=== PATIENT | female | born 1950 | race Caucasian/White ===

== ENCOUNTER → 2023-04-18 13:50 | Outpatient (REF) | payer MEDICARE, BC, SELFPAY | LOC: RAD 13:50 | PROVIDERS: ATTENDING PHYSICIAN Internal Medicine Rheumatology; FAMILY PHYSICIAN Internal Medicine | DX: M05.9 Rheumatoid arthritis with rheumatoid factor, unspecified (principal); Z51.81 Encounter for therapeutic drug level monitoring; M47.816 Spondylosis without myelopathy or radiculopathy, lumbar region; R10.2 Pelvic and perineal pain | CPT/HCPCS: 72110; 72170 ==

== ENCOUNTER → 2023-05-09 11:12 | Outpatient (REF) | payer MEDICARE, BC, SELFPAY ==
[2023-05-09 12:21] LABS: % Basophils 0.8 % (0-2); % Eosinophils 3.2 % (0-6); % Immature Granulocytes 0.6 % (0-0.5); % Monocytes 6.5 % (1.7-9.3); % Neutrophils 55.9 % (42.2-75.2); Absolute Basophils 0.1 10^3/uL (0-0.2); Absolute Eosinophils 0.3 10^3/uL (0-0.7); Absolute Immature Granulocytes 0.1 10^3/uL (0-0.05); Absolute Lymphocytes 2.6 10^3/uL (1.2-3.4); Absolute Monocytes 0.5 10^3/uL (0.1-0.6); Absolute Neutrophils 4.4 10^3/uL (1.4-6.5); Mean Corp Hgb Conc. 32.4 g/dL (33.0-37.0); Mean Corpuscular Hgb 32.1 pg (27.0-31.0); Mean Corpuscular Volume 99.1 fL (81.0-99.0); Nucleated Red Blood Cells % 0 %; Platelet Count 163 10^3/uL (130-400); Red Blood Cell Count 3.43 10^6/uL (4.20-5.40); Red Cell Dist. Width 14.7 % (11.5-14.5); White Blood Cell Count 7.9 10^3/uL (4.8-10.8)
[2023-05-09 12:48] LABS: C-Reactive Protein < 5.00 mg/L (0.0-10.00)
[2023-05-09 12:58] LABS: ALT (SGPT) 22 U/L (0-35); AST (SGOT) 22 U/L (14-36); Albumin 3.7 g/dl (3.5-5.0); Alkaline Phosphatase 85 U/L (38-126); Blood Urea Nitrogen 19 mg/dl (7-17); Carbon Dioxide 23 mmol/L (22-30); Chloride 109 mmol/L (98-107); Glucose 96 mg/dl (70-99); Iron 96 ug/dl (37-170); Potassium 4.5 mmol/L (3.5-5.1); Sodium 137 mmol/L (135-145); Total Bilirubin 0.5 mg/dl (0.2-1.3); Total Protein 6.6 g/dl (6.3-8.2); eGFR > 60.00
[2023-05-09 13:06] LABS: Percent Saturation 34 % (20-50); Total Iron Binding Capacity 275 ug/dl (265-497)
[2023-05-09 13:24] LABS: Ferritin 66.3 ng/ml (11.1-264.0)
[2023-05-09 13:55] LABS: Folate 9.2 ng/ml (2.76-20); Vitamin B12 251 pg/ml (239-931)
[2023-05-10 11:15] LABS: Glycohemoglobin (HgbA1c) 7.2 % (4.0-5.6)
[2023-05-11 02:42] LABS: Mitochondrial M2 Ab, IgG 8.4 Units (0.0-24.9)
[2023-05-11 13:01] LABS: Quantiferon Mitogen minus NIL >10.00 IU/mL; Quantiferon NIL 0.03 IU/mL; Quantiferon Plus TB2 minus NIL 0.12 IU/mL (0.00-0.34); Quantiferon TB Gold Plus Negative (Negative)
== END ==
LOC: REG 11:12
PROVIDERS: ATTENDING PHYSICIAN Internal Medicine Hematology & Oncology; FAMILY PHYSICIAN Internal Medicine; OTHER PHYSICIAN Internal Medicine Rheumatology; REFERRING PHYSICIAN Physician Assistant
DX: D64.9 Anemia, unspecified (principal); D47.2 Monoclonal gammopathy; D70.9 Neutropenia, unspecified; D50.9 Iron deficiency anemia, unspecified; R53.82 Chronic fatigue, unspecified; Z68.33 Body mass index [BMI] 33.0-33.9, adult; E11.69 Type 2 diabetes mellitus with other specified complication; R74.8 Abnormal levels of other serum enzymes; M05.739 Rheumatoid arthritis with rheumatoid factor of unspecified wrist without organ or systems involvement; M05.9 Rheumatoid arthritis with rheumatoid factor, unspecified; Z51.81 Encounter for therapeutic drug level monitoring; Z79.899 Other long term (current) drug therapy
CPT/HCPCS: 36415; 80053; 82607; 82728; 82746; 83036; 83540; 83550; 85025; 86140; 86381; 86480

== ENCOUNTER → 2023-05-24 12:54 | Outpatient (REF) | payer MEDICARE, BC, SELFPAY | LOC: DHCBC MAIN 12:54 | PROVIDERS: ATTENDING PHYSICIAN Internal Medicine Cardiovascular Disease; FAMILY PHYSICIAN Internal Medicine | DX: E78.00 Pure hypercholesterolemia, unspecified (principal); I21.4 Non-ST elevation (NSTEMI) myocardial infarction; I50.20 Unspecified systolic (congestive) heart failure; I63.9 Cerebral infarction, unspecified; I50.1 Left ventricular failure, unspecified; I42.9 Cardiomyopathy, unspecified; Z95.5 Presence of coronary angioplasty implant and graft | CPT/HCPCS: 93306 ==

== ENCOUNTER → 2023-06-03 16:05 | Outpatient (REF) | payer MEDICARE, BC, SELFPAY ==
[2023-06-03 12:51] LABS: % Basophils 0.7 % (0-2); % Immature Granulocytes 0.8 % (0-0.5); % Lymphocytes 18.9 % (20.5-51.1); % Monocytes 5.3 % (1.7-9.3); % Neutrophils 72.3 % (42.2-75.2); Absolute Basophils 0.1 10^3/uL (0-0.2); Absolute Eosinophils 0.2 10^3/uL (0-0.7); Absolute Immature Granulocytes 0.1 10^3/uL (0-0.05); Absolute Lymphocytes 1.6 10^3/uL (1.2-3.4); Absolute Monocytes 0.5 10^3/uL (0.1-0.6); Absolute Neutrophils 6.2 10^3/uL (1.4-6.5); Hematocrit 35.7 % (37.0-47.0); Hemoglobin 11.3 g/dL (12.0-16.0); Mean Corp Hgb Conc. 31.7 g/dL (33.0-37.0); Mean Corpuscular Hgb 31.9 pg (27.0-31.0); Mean Corpuscular Volume 100.8 fL (81.0-99.0); Nucleated Red Blood Cells % 0 %; Platelet Count 165 10^3/uL (130-400); Red Blood Cell Count 3.54 10^6/uL (4.20-5.40); Red Cell Dist. Width 13.6 % (11.5-14.5); White Blood Cell Count 8.6 10^3/uL (4.8-10.8)
== END ==
LOC: OIDL 16:05
PROVIDERS: ATTENDING PHYSICIAN Internal Medicine Hematology & Oncology
DX: D64.9 Anemia, unspecified (principal)
CPT/HCPCS: 84100; 85025

== ENCOUNTER → 2023-08-08 07:31 | Outpatient (REF) | payer MEDICARE, BC, SELFPAY ==
[2023-08-08 08:59] LABS: % Basophils 0.4 % (0-2); % Immature Granulocytes 0.7 % (0-0.5); % Lymphocytes 31.9 % (20.5-51.1); % Monocytes 6.8 % (1.7-9.3); % Neutrophils 58.2 % (42.2-75.2); Absolute Eosinophils 0.2 10^3/uL (0-0.7); Absolute Immature Granulocytes 0.1 10^3/uL (0-0.05); Absolute Lymphocytes 2.4 10^3/uL (1.2-3.4); Absolute Monocytes 0.5 10^3/uL (0.1-0.6); Absolute Neutrophils 4.3 10^3/uL (1.4-6.5); Hematocrit 35.7 % (37.0-47.0); Hemoglobin 11.5 g/dL (12.0-16.0); Mean Corp Hgb Conc. 32.2 g/dL (33.0-37.0); Mean Corpuscular Volume 102.3 fL (81.0-99.0); Mean Platelet Volume 11.2 fL (7.4-10.4); Nucleated Red Blood Cells % 0 %; Platelet Count 157 10^3/uL (130-400); Red Blood Cell Count 3.49 10^6/uL (4.20-5.40); Red Cell Dist. Width 12.9 % (11.5-14.5); White Blood Cell Count 7.5 10^3/uL (4.8-10.8)
[2023-08-08 10:34] LABS: AST (SGOT) 31 U/L (14-36); Albumin 3.5 g/dl (3.5-5.0); Alkaline Phosphatase 100 U/L (38-126); Blood Urea Nitrogen 23 mg/dl (7-17); Calcium 9.2 mg/dl (8.4-10.2); Carbon Dioxide 20 mmol/L (22-30); Chloride 109 mmol/L (98-107); Glucose 80 mg/dl (70-99); HDL Cholesterol 68 mg/dl; Iron 97 ug/dl (37-170); Potassium 4.5 mmol/L (3.5-5.1); Sodium 139 mmol/L (135-145); Total Bilirubin 0.5 mg/dl (0.2-1.3); Total Protein 6.2 g/dl (6.3-8.2); Triglyceride 141 mg/dl (10-149); Very Low Density Lipoprotein 28 mg/dl (0-30); eGFR > 60.00
[2023-08-08 10:46] LABS: Percent Saturation 45 % (20-50); Total Iron Binding Capacity 212 ug/dl (265-497)
[2023-08-08 10:59] LABS: TSH Reflex To Free T4 2.51 uIU/ml (0.47-4.68)
[2023-08-08 11:07] LABS: ALT (SGPT) 63 U/L (0-35); LDL Cholesterol, Calculated 43 mg/dl; Total Cholesterol 139 mg/dl (50-199)
[2023-08-08 11:18] LABS: Vitamin B12 851 pg/ml (239-931)
== END ==
LOC: REG 07:31
PROVIDERS: ATTENDING PHYSICIAN Internal Medicine Hematology & Oncology; FAMILY PHYSICIAN Internal Medicine
DX: E11.69 Type 2 diabetes mellitus with other specified complication (principal); D64.9 Anemia, unspecified; D47.2 Monoclonal gammopathy; D70.9 Neutropenia, unspecified; D50.9 Iron deficiency anemia, unspecified; R53.82 Chronic fatigue, unspecified; D51.9 Vitamin B12 deficiency anemia, unspecified
CPT/HCPCS: 36415; 80053; 80061; 82607; 82728; 83540; 83550; 84443; 85025

== ENCOUNTER → 2023-11-19 08:17 | Outpatient (REF) | payer MEDICARE, BC, SELFPAY ==
[2023-11-19 09:13] LABS: % Basophils 0.5 % (0-2); % Eosinophils 2.4 % (0-6); % Immature Granulocytes 0.9 % (0-0.5); % Lymphocytes 34.3 % (20.5-51.1); % Monocytes 9.6 % (1.7-9.3); % Neutrophils 52.3 % (42.2-75.2); Absolute Eosinophils 0.1 10^3/uL (0-0.7); Absolute Immature Granulocytes 0.1 10^3/uL (0-0.05); Absolute Lymphocytes 1.9 10^3/uL (1.2-3.4); Absolute Monocytes 0.5 10^3/uL (0.1-0.6); Absolute Neutrophils 2.9 10^3/uL (1.4-6.5); Hemoglobin 10.5 g/dL (12.0-16.0); Mean Corp Hgb Conc. 32.8 g/dL (33.0-37.0); Mean Corpuscular Hgb 33.2 pg (27.0-31.0); Mean Corpuscular Volume 101.3 fL (81.0-99.0); Mean Platelet Volume 11.3 fL (7.4-10.4); Nucleated Red Blood Cells % 0 %; Platelet Count 147 10^3/uL (130-400); Red Blood Cell Count 3.16 10^6/uL (4.20-5.40); Red Cell Dist. Width 12.1 % (11.5-14.5); White Blood Cell Count 5.5 10^3/uL (4.8-10.8)
[2023-11-19 09:57] LABS: ALT (SGPT) 83 U/L (0-35); AST (SGOT) 55 U/L (14-36); Albumin 3.5 g/dl (3.5-5.0); Alkaline Phosphatase 153 U/L (38-126); Blood Urea Nitrogen 28 mg/dl (7-17); Calcium 9.3 mg/dl (8.4-10.2); Carbon Dioxide 18 mmol/L (22-30); Chloride 108 mmol/L (98-107); Glucose 95 mg/dl (70-99); Iron 114 ug/dl (37-170); Sodium 142 mmol/L (135-145); Total Bilirubin 0.4 mg/dl (0.2-1.3); eGFR 59.86
[2023-11-19 10:10] LABS: Percent Saturation 51 % (20-50); Total Iron Binding Capacity 221 ug/dl (265-497)
[2023-11-19 12:13] LABS: Vitamin B12 918 pg/ml (239-931)
[2023-11-19 12:58] LABS: Glycohemoglobin (HgbA1c) 6.4 % (4.0-5.6)
== END ==
LOC: REG 08:17
PROVIDERS: ATTENDING PHYSICIAN Internal Medicine Hematology & Oncology; FAMILY PHYSICIAN Internal Medicine; REFERRING PHYSICIAN Internal Medicine Rheumatology
DX: E11.69 Type 2 diabetes mellitus with other specified complication (principal); M05.739 Rheumatoid arthritis with rheumatoid factor of unspecified wrist without organ or systems involvement; I10 Essential (primary) hypertension; D64.9 Anemia, unspecified; E78.00 Pure hypercholesterolemia, unspecified; Z86.73 Personal history of transient ischemic attack (TIA), and cerebral infarction without residual deficits; D47.2 Monoclonal gammopathy; D70.9 Neutropenia, unspecified; D50.9 Iron deficiency anemia, unspecified; R53.82 Chronic fatigue, unspecified; D51.9 Vitamin B12 deficiency anemia, unspecified; M05.9 Rheumatoid arthritis with rheumatoid factor, unspecified; Z51.81 Encounter for therapeutic drug level monitoring
CPT/HCPCS: 36415; 80053; 82607; 82728; 82746; 83036; 83540; 83550; 85025; 86140

== ENCOUNTER → 2024-03-26 10:16 | Outpatient (REF) | payer MEDICARE, BC, SELFPAY ==
[2024-03-26 11:33] LABS: % Basophils 0.4 % (0-2); % Eosinophils 1.5 % (0-6); % Lymphocytes 35.7 % (20.5-51.1); % Monocytes 7.4 % (1.7-9.3); Absolute Eosinophils 0.1 10^3/uL (0-0.7); Absolute Immature Granulocytes 0.1 10^3/uL (0-0.05); Absolute Lymphocytes 1.9 10^3/uL (1.2-3.4); Absolute Monocytes 0.4 10^3/uL (0.1-0.6); Absolute Neutrophils 2.8 10^3/uL (1.4-6.5); Hematocrit 35.8 % (37.0-47.0); Hemoglobin 11.1 g/dL (12.0-16.0); Mean Corpuscular Hgb 31.1 pg (27.0-31.0); Mean Corpuscular Volume 100.3 fL (81.0-99.0); Mean Platelet Volume 11.5 fL (7.4-10.4); Nucleated Red Blood Cells % 0 %; Platelet Count 150 10^3/uL (130-400); Red Blood Cell Count 3.57 10^6/uL (4.20-5.40); Red Cell Dist. Width 12.6 % (11.5-14.5); White Blood Cell Count 5.2 10^3/uL (4.8-10.8)
[2024-03-26 11:51] LABS: Glycohemoglobin (HgbA1c) 6.7 % (4.0-5.6)
[2024-03-26 12:13] LABS: ALT (SGPT) 59 U/L (0-35); AST (SGOT) 27 U/L (14-36); Alkaline Phosphatase 112 U/L (38-126); Blood Urea Nitrogen 27 mg/dl (7-17); Calcium 8.6 mg/dl (8.4-10.2); Carbon Dioxide 21 mmol/L (22-30); Chloride 103 mmol/L (98-107); Glucose 129 mg/dl (70-99); HDL Cholesterol 76 mg/dl; Iron 134 ug/dl (37-170); LDL Cholesterol, Calculated 87 mg/dl; Potassium 4.4 mmol/L (3.5-5.1); Sodium 135 mmol/L (135-145); Total Bilirubin 0.5 mg/dl (0.2-1.3); Total Cholesterol 208 mg/dl (50-199); Total Protein 6.9 g/dl (6.3-8.2); Triglyceride 228 mg/dl (10-149); Very Low Density Lipoprotein 45 mg/dl (0-30); eGFR > 60.00
[2024-03-26 12:23] LABS: Percent Saturation 60 % (20-50); Total Iron Binding Capacity 223 ug/dl (265-497)
[2024-03-26 12:47] LABS: TSH 1.28 uIU/ml (0.47-4.68)
[2024-03-26 12:59] LABS: GGTP 138 U/L (12-43)
[2024-03-26 14:26] LABS: Folate 7.2 ng/ml (2.76-20); Vitamin B12 833 pg/ml (239-931)
== END ==
LOC: REG 10:16
PROVIDERS: ATTENDING PHYSICIAN Internal Medicine; FAMILY PHYSICIAN Internal Medicine Rheumatology
DX: R79.89 Other specified abnormal findings of blood chemistry (principal); D64.9 Anemia, unspecified; R74.8 Abnormal levels of other serum enzymes; M05.739 Rheumatoid arthritis with rheumatoid factor of unspecified wrist without organ or systems involvement; I10 Essential (primary) hypertension; E78.00 Pure hypercholesterolemia, unspecified; Z23 Encounter for immunization; Z68.35 Body mass index [BMI] 35.0-35.9, adult; Z86.73 Personal history of transient ischemic attack (TIA), and cerebral infarction without residual deficits; M05.9 Rheumatoid arthritis with rheumatoid factor, unspecified; R53.83 Other fatigue; Z51.81 Encounter for therapeutic drug level monitoring; D52.9 Folate deficiency anemia, unspecified
CPT/HCPCS: 36415; 80053; 80061; 82607; 82728; 82746; 82977; 83036; 83540; 83550; 84443; 85025; 86140

== ENCOUNTER → 2024-04-14 10:32 | Outpatient (REF) | payer MEDICARE, BC, SELFPAY ==
[2024-04-14 11:41] LABS: % Basophils 0.6 % (0-2); % Eosinophils 2.4 % (0-6); % Immature Granulocytes 0.8 % (0-0.5); % Lymphocytes 26.9 % (20.5-51.1); % Monocytes 8.1 % (1.7-9.3); % Neutrophils 61.2 % (42.2-75.2); Absolute Eosinophils 0.2 10^3/uL (0-0.7); Absolute Immature Granulocytes 0.1 10^3/uL (0-0.05); Absolute Lymphocytes 1.9 10^3/uL (1.2-3.4); Absolute Monocytes 0.6 10^3/uL (0.1-0.6); Absolute Neutrophils 4.4 10^3/uL (1.4-6.5); Hematocrit 32.6 % (37.0-47.0); Hemoglobin 10.8 g/dL (12.0-16.0); Mean Corp Hgb Conc. 33.1 g/dL (33.0-37.0); Mean Corpuscular Hgb 31.8 pg (27.0-31.0); Mean Corpuscular Volume 95.9 fL (81.0-99.0); Mean Platelet Volume 11.4 fL (7.4-10.4); Nucleated Red Blood Cells % 0 %; Platelet Count 176 10^3/uL (130-400); Red Cell Dist. Width 12.4 % (11.5-14.5); White Blood Cell Count 7.2 10^3/uL (4.8-10.8)
[2024-04-14 11:42] LABS: Blood Urea Nitrogen 26 mg/dl (7-17); Carbon Dioxide 18 mmol/L (22-30); Chloride 104 mmol/L (98-107); Glucose 126 mg/dl (70-99); Iron 83 ug/dl (37-170); Potassium 4.5 mmol/L (3.5-5.1); Sodium 135 mmol/L (135-145); eGFR > 60.00
[2024-04-14 11:50] LABS: Erythrocyte Sed Rate 68 mm/hour (0-20)
[2024-04-14 11:51] LABS: Percent Saturation 36 % (20-50); Total Iron Binding Capacity 229 ug/dl (265-497)
== END ==
LOC: REG 10:32
PROVIDERS: ATTENDING PHYSICIAN Internal Medicine Hematology & Oncology; FAMILY PHYSICIAN Internal Medicine
DX: D64.9 Anemia, unspecified (principal); D47.2 Monoclonal gammopathy; D70.9 Neutropenia, unspecified; D50.9 Iron deficiency anemia, unspecified; R53.82 Chronic fatigue, unspecified; D51.9 Vitamin B12 deficiency anemia, unspecified
CPT/HCPCS: 36415; 80048; 82728; 83540; 83550; 85025; 85652

== ENCOUNTER → 2024-06-10 10:24 | Outpatient (REF) | payer MEDICARE, BC, SELFPAY ==
[2024-06-12 13:45] LABS: Quantiferon Mitogen minus NIL 9.95 IU/mL; Quantiferon NIL 0.05 IU/mL; Quantiferon Plus TB1 minus NIL 0.14 IU/mL (<=0.34); Quantiferon Plus TB2 minus NIL 0.12 IU/mL (<=0.34); Quantiferon TB Gold Plus Negative (Negative)
== END ==
LOC: REG 10:24
PROVIDERS: ATTENDING PHYSICIAN Internal Medicine Rheumatology; FAMILY PHYSICIAN Internal Medicine
DX: M05.9 Rheumatoid arthritis with rheumatoid factor, unspecified (principal); Z11.1 Encounter for screening for respiratory tuberculosis; Z51.81 Encounter for therapeutic drug level monitoring
CPT/HCPCS: 36415; 86480

== ENCOUNTER → 2024-08-05 08:41 | Outpatient (REF) | payer MEDICARE, BC, SELFPAY ==
[2024-08-05 10:12] LABS: % Basophils 0.4 % (0-2); % Eosinophils 2.4 % (0-6); % Lymphocytes 30.7 % (20.5-51.1); % Monocytes 6.6 % (1.7-9.3); % Neutrophils 58.9 % (42.2-75.2); Absolute Eosinophils 0.2 10^3/uL (0-0.7); Absolute Immature Granulocytes 0.1 10^3/uL (0-0.05); Absolute Lymphocytes 2.1 10^3/uL (1.2-3.4); Absolute Monocytes 0.5 10^3/uL (0.1-0.6); Absolute Neutrophils 4.1 10^3/uL (1.4-6.5); Hematocrit 34.8 % (37.0-47.0); Hemoglobin 11.2 g/dL (12.0-16.0); Mean Corp Hgb Conc. 32.2 g/dL (33.0-37.0); Mean Corpuscular Hgb 31.7 pg (27.0-31.0); Mean Corpuscular Volume 98.6 fL (81.0-99.0); Mean Platelet Volume 11.5 fL (7.4-10.4); Nucleated Red Blood Cells % 0 %; Platelet Count 167 10^3/uL (130-400); Red Blood Cell Count 3.53 10^6/uL (4.20-5.40)
[2024-08-05 10:51] LABS: ALT (SGPT) 22 U/L (0-35); AST (SGOT) 20 U/L (14-36); Albumin 3.7 g/dl (3.5-5.0); Alkaline Phosphatase 69 U/L (38-126); Blood Urea Nitrogen 24 mg/dl (7-17); Calcium 9.2 mg/dl (8.4-10.2); Carbon Dioxide 19 mmol/L (22-30); Chloride 114 mmol/L (98-107); GGTP 67 U/L (12-43); Glucose 101 mg/dl (70-99); Iron 83 ug/dl (37-170); Potassium 4.5 mmol/L (3.5-5.1); Sodium 141 mmol/L (135-145); Total Bilirubin 0.3 mg/dl (0.2-1.3); Total Protein 6.2 g/dl (6.3-8.2); eGFR 59.86
[2024-08-05 10:54] LABS: C-Reactive Protein < 5.00 mg/L (0.0-10.00)
[2024-08-05 11:00] LABS: Percent Saturation 33 % (20-50); Total Iron Binding Capacity 246 ug/dl (265-497)
[2024-08-05 11:21] LABS: Erythrocyte Sed Rate 68 mm/hour (0-20)
[2024-08-05 11:34] LABS: Glycohemoglobin (HgbA1c) 6.7 % (4.0-5.6)
[2024-08-05 12:02] LABS: Folate 9.6 ng/ml (2.76-20); Vitamin B12 952 pg/ml (239-931)
[2024-08-08 06:17] LABS: Mitochondrial M2 Ab, IgG 7.3 Units (0.0-24.9)
== END ==
LOC: REG 08:41
PROVIDERS: ATTENDING PHYSICIAN Internal Medicine; OTHER PHYSICIAN Internal Medicine Rheumatology; OTHER PHYSICIAN Nurse Practitioner; OTHER PHYSICIAN Nurse Practitioner Adult Health
DX: Z00.00 Encounter for general adult medical examination without abnormal findings (principal); E11.69 Type 2 diabetes mellitus with other specified complication; M05.739 Rheumatoid arthritis with rheumatoid factor of unspecified wrist without organ or systems involvement; E78.00 Pure hypercholesterolemia, unspecified; I10 Essential (primary) hypertension; D64.9 Anemia, unspecified; Z78.0 Asymptomatic menopausal state; Z12.31 Encounter for screening mammogram for malignant neoplasm of breast; Z68.35 Body mass index [BMI] 35.0-35.9, adult; Z86.73 Personal history of transient ischemic attack (TIA), and cerebral infarction without residual deficits; R74.8 Abnormal levels of other serum enzymes; K76.0 Fatty (change of) liver, not elsewhere classified; D47.2 Monoclonal gammopathy; D70.9 Neutropenia, unspecified; D50.9 Iron deficiency anemia, unspecified; R53.82 Chronic fatigue, unspecified; D51.9 Vitamin B12 deficiency anemia, unspecified; M05.9 Rheumatoid arthritis with rheumatoid factor, unspecified; Z51.81 Encounter for therapeutic drug level monitoring
CPT/HCPCS: 36415; 80053; 82248; 82607; 82728; 82746; 82977; 83036; 83540; 83550; 85025; 85652; 86140; 86381

== ENCOUNTER 2024-08-07 06:21 | Day surgery (SDC) | payer MEDICARE, BC, SELFPAY ==
[2024-08-07 08:20] LABS: Glucose - Point of Care 110 mg/dl (70-99)
== END 2024-08-07 09:26 | disposition home or self-care (01) ==
LOC: GI 06:21
PROVIDERS: ATTENDING PHYSICIAN Internal Medicine Gastroenterology; FAMILY PHYSICIAN Internal Medicine
DX: R12 Heartburn (principal); K44.9 Diaphragmatic hernia without obstruction or gangrene; K31.89 Other diseases of stomach and duodenum
CPT/HCPCS: 43239; 88305; 82962; 88342

== ENCOUNTER → 2024-08-31 08:26 | Outpatient (REF) | payer MEDICARE, BC, SELFPAY | LOC: RAD 08:26 | PROVIDERS: ATTENDING PHYSICIAN Internal Medicine Rheumatology; FAMILY PHYSICIAN Internal Medicine | DX: G89.29 Other chronic pain (principal); M05.9 Rheumatoid arthritis with rheumatoid factor, unspecified; M17.10 Unilateral primary osteoarthritis, unspecified knee | CPT/HCPCS: 73560; 73565 ==

== ENCOUNTER → 2024-09-02 10:04 | Outpatient (REF) | payer MEDICARE, BC, SELFPAY | LOC: DHSLP 10:04 | PROVIDERS: ATTENDING PHYSICIAN Internal Medicine | DX: G47.33 Obstructive sleep apnea (adult) (pediatric) (principal) | CPT/HCPCS: 95800 ==

== ENCOUNTER → 2024-11-05 10:23 | Outpatient (REF) | payer MEDICARE, BC, SELFPAY ==
[2024-11-05 11:46] LABS: Microalb - Urine Creatinine 89.700 mg/dl
[2024-11-05 11:50] LABS: Microalbumin, Random Urine 16.5 mg/dl (0.6-1.7)
[2024-11-05 11:56] LABS: Hematocrit 39.8 % (37.0-47.0); Hemoglobin 12.3 g/dL (12.0-16.0); Mean Corp Hgb Conc. 30.9 g/dL (33.0-37.0); Mean Corpuscular Volume 99.7 fL (81.0-99.0); Nucleated Red Blood Cells % 0 %; Platelet Count 173 10^3/uL (130-400); Red Cell Dist. Width 12.5 % (11.5-14.5)
[2024-11-05 11:58] LABS: ALT (SGPT) 24 U/L (0-35); AST (SGOT) 21 U/L (14-36); Albumin 4.2 g/dl (3.5-5.0); Alkaline Phosphatase 77 U/L (38-126); Blood Urea Nitrogen 25 mg/dl (7-17); Calcium 9.2 mg/dl (8.4-10.2); Carbon Dioxide 24 mmol/L (22-30); Chloride 107 mmol/L (98-107); Glucose 107 mg/dl (70-99); Iron 107 ug/dl (37-170); Potassium 4.5 mmol/L (3.5-5.1); Sodium 138 mmol/L (135-145); Total Protein 6.6 g/dl (6.3-8.2); eGFR > 60.00
[2024-11-05 12:04] LABS: C-Reactive Protein < 5.00 mg/L (0.0-10.00)
[2024-11-05 12:08] LABS: Total Iron Binding Capacity 276 ug/dl (265-497)
[2024-11-05 12:42] LABS: Ferritin 226.0 ng/ml (11.1-264.0)
[2024-11-05 13:13] LABS: Folate 8.9 ng/ml (2.76-20); Vitamin B12 948 pg/ml (239-931)
== END ==
LOC: REG 10:23
PROVIDERS: ATTENDING PHYSICIAN Nurse Practitioner Adult Health; FAMILY PHYSICIAN Internal Medicine; REFERRING PHYSICIAN Internal Medicine Rheumatology
DX: M05.9 Rheumatoid arthritis with rheumatoid factor, unspecified (principal); R53.83 Other fatigue; Z51.81 Encounter for therapeutic drug level monitoring; E11.69 Type 2 diabetes mellitus with other specified complication; M05.739 Rheumatoid arthritis with rheumatoid factor of unspecified wrist without organ or systems involvement; E78.00 Pure hypercholesterolemia, unspecified; I10 Essential (primary) hypertension; D64.9 Anemia, unspecified; Z86.73 Personal history of transient ischemic attack (TIA), and cerebral infarction without residual deficits; R74.8 Abnormal levels of other serum enzymes; Z68.37 Body mass index [BMI] 37.0-37.9, adult; D47.2 Monoclonal gammopathy; D70.9 Neutropenia, unspecified; D50.9 Iron deficiency anemia, unspecified; R53.82 Chronic fatigue, unspecified; D51.9 Vitamin B12 deficiency anemia, unspecified
CPT/HCPCS: 36415; 80053; 82043; 82570; 82607; 82728; 82746; 83540; 83550; 84443; 85025; 86140

== ENCOUNTER 2024-11-07 18:21 | Emergency (ER) | payer MEDICARE, BC, SELFPAY ==
[2024-11-07 18:37] VITALS: BP 176/71
--- NOTE | 2024-11-07 21:25 | ED.GENMED ---
History of Present Illness
General
Chief Complaint: Fall
Source: patient and spouse
Time Seen by Provider: 11/07/24 21:06
History of Present Illness
History of Present Illness:
This patient is a 74-year-old female presents emergency department complaints of left shoulder pain after suffering a fall today. She was getting up while sitting on an incline watching a soccer tournament and accidentally fell backwards. She
denies head injury loss of consciousness. She is most concerned about the possibility of damage to her left shoulder. She denies numbness, tingling, focal weakness, swelling, redness, neck pain, headache, dizziness, chest pain, palpitations,
dyspnea, abdominal pain, new back pain, or other complaints. She states she feels much better since being here.
Past History
Past History
ED Past Medical History: HTN, Hypercholesterolemia, NIDDM, Other and Other
ED Past Surgical History: , Orthopedic and Other
Social History
Tobacco: Non-smoker
Alcohol: Occasional
Drug: None
Personal:
Living: with family
Family History
Family History: Other (Reviewed and noncontributory)
Phy Exam
Physical Exam
Physical Exam:
GENERAL: Alert , in no apparent distress
EYE: pupils equal and reactive, EOMI, no photophobia
NECK: Supple, no significant adenopathy, no midline tenderness.
ENT: o/p clr, mmm, no signs of head or facial injury noted.
CARDIAC: Regular rate and rhythm .
LUNGS: Clear breath sounds bilaterally, no acute respiratory distress, no wheezes/rales/rhonchi
ABDOMEN: Soft, without focal tenderness, no r/g, no cvat
NEUROLOGICAL: Alert and oriented, no focal neuro deficits
SKIN: Warm and dry, skin intact.
MUSCULOSKELETAL: No edema, well perfused. 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 She has limited abduction which is chronic and unchanged. Mild tenderness to palpation noted at the anterior humeral head
area.
PSYCH: Normal and appropriate interaction.
Course
Orders/Labs/Results
Orders:
Orders
11/07/24 18:40
Shoulder, Left, Trauma CR [CR Shoulder, Trauma - Left] Urgent
Comment:
Reason For Exam: left shoulder pain
Vital Signs
Initial and Last Documented VS:
Initial Vital Signs
Temp Pulse Resp BP Pulse Ox
98.5 F 64 18 176 98
11/07/24 18:37 11/07/24 18:37 11/07/24 18:37 11/07/24 18:37 11/07/24 18:37
Last Documented Vital Signs
Temp Pulse Resp BP Pulse Ox
98.5 F 64 18 176 98
11/07/24 18:37 11/07/24 18:37 11/07/24 18:37 11/07/24 18:37 11/07/24 18:37
*Pulse Oximetry
SaO2: 98
Oxygen Mode of Delivery: Room air
Patient hypoxic: no
*Critical Care Note
Total Time (30-74mins, 75-104mins- exclusive of procedures): Not Applicable
Update Note
Update Note:
Patient presents to the Emergency Department with ___shoulder pain status post fall
Number and Complexity of Problems Addressed at the Encounter
� Chronic conditions affecting care:
� Acute Exacerbation and/or Progression of Chronic Illness:
� Differential Diagnosis includes: But not limited to clavicle fracture, shoulder dislocation, shoulder fracture, shoulder strain, etc. etc.
Amount and/or Complexity of Data to be Reviewed and Analyzed
� I performed an independent evaluation of and my interpretation is:
EKG:
CT:
Xrays: Read by radiology NAD, chronic deformity of proximal humerus
Laboratory Studies:
Other:
� Review of other/old records reveals:
� Clinical information was obtained by an independent historian:
� Prescriptions/Medications Considered but not given:
� Further testing considered but not performed:
Risk of Complications and/or Morbidity or Mortality of Patient Management
� Social determinants of health affecting care:
� Discussion with other providers (PCP, Hospitalists, Consultants, etc):
� Escalation of care including admission/observation vs risk of discharge considered: 9:29 PM patient eager to go home, feels much better, declines pain medication here or sling. Discussed with patient importance of follow-up
and reasons return to the ER. She was given a copy of her x-ray report.
ED Attending Note
-
Portions of this chart may have been created with voice recognition software.� Occasional wrong word or��sound alike� substitutions may have occurred due to the inherent limitations of voice recognition software.
Discharge Plan
Departure
Patient Disposition: Home (Routine Discharge)
Date of Disposition: 11/07/24
Time of Disposition: 21:26
Patient with high blood pressure during this ER visit?: Yes
Condition: Good
Discharge Problem:
Left shoulder strain
Instructions: Shoulder pain, BLOOD PRESSURE
Prescriptions:
No Action
acetaminophen [Pain Relief ES (acetaminophen)] 500 mg Tablet
1,000 mg PO TID Qty: 10 0RF
methocarbamol 500 mg Tablet
500 mg PO TIDPRN PRN (Reason: muscle spasam)
escitalopram oxalate 5 mg Tablet
10 mg PO DAILY Qty: 90 0RF
insulin glargine [Lantus Solostar U-100 Insulin] 100 unit/mL (3 mL) insulin pen
24 unit SC DAILY Qty: 15 0RF
metformin 500 mg Tablet
500 mg PO BID@0800,1700 Qty: 180 0RF
tramadol 50 mg Tablet
50 mg PO Q6HPRN PRN (Reason: severe pain) Qty: 20 0RF
(DME) pen needle, diabetic [BD Lola 2nd Gen Pen Needle] 32 gauge x /' needle
See Rx Instructions .Route Qty: 100 1RF
Rx Instructions:
As directed
atorvastatin 80 mg Tablet
80 mg PO QPM Qty: 90 0RF
famotidine 40 mg Tablet
40 mg PO DAILY Qty: 90 0RF
clopidogrel 75 mg Tablet
75 mg PO DAILY Qty: 90 0RF
aspirin 81 mg Tablet,Delayed Release (Dr/Ec)
81 mg PO DAILY Qty: 90 0RF
losartan 25 mg Tablet
25 mg PO DAILY Qty: 90 0RF
metoprolol tartrate 25 mg Tablet
12.5 mg PO BID Qty: 180 0RF
Rx Instructions:
Take 0.5 tablets(12.5mg total) two times a day
cholecalciferol (vitamin D3) 25 mcg (1,000 unit) Tablet
25 mcg PO DAILY Qty: 90 0RF
Activity Restrictions/Additional Instructions:
IF YOU DEVELOP NUMBNESS, TINGLING, REDNESS, WARMTH, WEAKNESS, SWELLING, INCREASING OR NEW PAIN, OR OTHER WORRISOME SIGNS, PLEASE RETURN TO THE ER IMMEDIATELY!
Interventions
Interventions:
*Risk Screen - Suicide Last Done: 11/07/24 18:37
*General Assessment Last Done: 11/07/24 18:37
*Neglect/Abuse Screening Last Done: 11/07/24 18:37
*ED- Fall Risk Assessment Last Done: 11/07/24 18:37
*ED COVID-19 Vaccine History Last Done: 11/07/24 18:37
ED-Musculoskeletal Assessment Last Done: 11/07/24 21:07
ED- Neurological Assessment Last Done: 11/07/24 21:07
Discharge Date and Time
Print Language: KAZAKH
== END 2024-11-07 21:39 | disposition home or self-care (01) ==
LOC: EMR 18:21
PROVIDERS: EMERGENCY PHYSICIAN Emergency Medicine; FAMILY PHYSICIAN Internal Medicine
DX: S46.912A Strain of unspecified muscle, fascia and tendon at shoulder and upper arm level, left arm, initial encounter (principal); W19.XXXA Unspecified fall, initial encounter; M25.512 Pain in left shoulder; I10 Essential (primary) hypertension; E78.00 Pure hypercholesterolemia, unspecified; E11.9 Type 2 diabetes mellitus without complications; Z79.84 Long term (current) use of oral hypoglycemic drugs; Z96.612 Presence of left artificial shoulder joint
CPT/HCPCS: 99283; 73030

== ENCOUNTER → 2024-11-12 10:59 | Outpatient (REF) | payer MEDICARE, BC, SELFPAY ==
[2024-11-12 11:51] LABS: Hematocrit 36.9 % (37.0-47.0); Hemoglobin 11.7 g/dL (12.0-16.0); Mean Corp Hgb Conc. 31.7 g/dL (33.0-37.0); Mean Corpuscular Volume 98.7 fL (81.0-99.0); Nucleated Red Blood Cells % 0 %; Platelet Count 144 10^3/uL (130-400); Red Cell Dist. Width 12.5 % (11.5-14.5)
[2024-11-12 12:11] LABS: Urine Character Clear (Clear)
[2024-11-12 12:37] LABS: ALT (SGPT) 26 U/L (0-35); AST (SGOT) 18 U/L (14-36); Albumin 3.6 g/dl (3.5-5.0); Alkaline Phosphatase 82 U/L (38-126); Blood Urea Nitrogen 26 mg/dl (7-17); C-Reactive Protein 11.60 mg/L (0.0-10.00); Calcium 8.8 mg/dl (8.4-10.2); Carbon Dioxide 21 mmol/L (22-30); Chloride 108 mmol/L (98-107); Glucose 184 mg/dl (70-99); HDL Cholesterol 63 mg/dl; LDL Cholesterol, Calculated 34 mg/dl; Potassium 4.3 mmol/L (3.5-5.1); Sodium 136 mmol/L (135-145); Total Protein 5.8 g/dl (6.3-8.2); Very Low Density Lipoprotein 33 mg/dl (0-30); eGFR > 60.00
[2024-11-12 12:54] LABS: Glycohemoglobin (HgbA1c) 6.5 % (4.0-5.6)
[2024-11-12 13:30] LABS: Urine Squamous Cell >30 /LPF (Few)
== END ==
LOC: RAD 10:59
PROVIDERS: ATTENDING PHYSICIAN Internal Medicine; OTHER PHYSICIAN Orthopaedic Surgery; REFERRING PHYSICIAN Internal Medicine Rheumatology
DX: E11.69 Type 2 diabetes mellitus with other specified complication (principal); I10 Essential (primary) hypertension; D64.9 Anemia, unspecified; M06.9 Rheumatoid arthritis, unspecified; R35.0 Frequency of micturition; M05.9 Rheumatoid arthritis with rheumatoid factor, unspecified; M40.204 Unspecified kyphosis, thoracic region; M47.816 Spondylosis without myelopathy or radiculopathy, lumbar region; M81.0 Age-related osteoporosis without current pathological fracture
CPT/HCPCS: 36415; 72070; 72100; 80053; 80061; 81003; 81015; 83036; 85025; 85652; 86140; 87086

== ENCOUNTER → 2024-11-20 14:30 | Outpatient (REF) | payer MEDICARE, BC, SELFPAY | LOC: HWWDC 14:30 | PROVIDERS: ATTENDING PHYSICIAN Internal Medicine | DX: Z12.31 Encounter for screening mammogram for malignant neoplasm of breast (principal) | CPT/HCPCS: 77063; 77067 ==

== ENCOUNTER → 2024-12-09 08:01 | Outpatient (REF) | payer MEDICARE, BC, SELFPAY ==
[2024-12-09 08:52] LABS: Hematocrit 27.7 % (37.0-47.0); Hemoglobin 9.0 g/dL (12.0-16.0); Mean Corp Hgb Conc. 32.5 g/dL (33.0-37.0); Mean Corpuscular Volume 96.5 fL (81.0-99.0); Nucleated Red Blood Cells % 0 %; Platelet Count 226 10^3/uL (130-400); Red Cell Dist. Width 12.2 % (11.5-14.5)
[2024-12-09 09:32] LABS: ALT (SGPT) 14 U/L (0-35); AST (SGOT) 17 U/L (14-36); Albumin 3.2 g/dl (3.5-5.0); Alkaline Phosphatase 121 U/L (38-126); Blood Urea Nitrogen 19 mg/dl (7-17); Calcium 8.7 mg/dl (8.4-10.2); Carbon Dioxide 20 mmol/L (22-30); Chloride 110 mmol/L (98-107); Glucose 201 mg/dl (70-99); Iron 99 ug/dl (37-170); Potassium 4.1 mmol/L (3.5-5.1); Sodium 137 mmol/L (135-145); Total Protein 5.8 g/dl (6.3-8.2); eGFR 59.49
[2024-12-09 09:42] LABS: Total Iron Binding Capacity 236 ug/dl (265-497)
[2024-12-09 09:52] LABS: Ferritin 344.0 ng/ml (11.1-264.0)
[2024-12-09 10:23] LABS: Folate 7.4 ng/ml (2.76-20); Vitamin B12 771 pg/ml (239-931)
== END ==
LOC: REG 08:01
PROVIDERS: ATTENDING PHYSICIAN Internal Medicine
DX: T84.019A Broken internal joint prosthesis, unspecified site, initial encounter (principal); R53.83 Other fatigue; E11.69 Type 2 diabetes mellitus with other specified complication; D64.9 Anemia, unspecified; Z79.4 Long term (current) use of insulin; Z79.899 Other long term (current) drug therapy
CPT/HCPCS: 36415; 80053; 82607; 82728; 82746; 83540; 83550; 85025

== ENCOUNTER → 2025-01-08 10:06 | Outpatient (REF) | payer MEDICARE, BC, SELFPAY ==
[2025-01-08 12:19] LABS: Hematocrit 37.6 % (37.0-47.0); Hemoglobin 11.5 g/dL (12.0-16.0); Mean Corp Hgb Conc. 30.6 g/dL (33.0-37.0); Mean Corpuscular Volume 99.2 fL (81.0-99.0); Nucleated Red Blood Cells % 0 %; Platelet Count 234 10^3/uL (130-400); Red Cell Dist. Width 14.6 % (11.5-14.5)
== END ==
LOC: REG 10:06
PROVIDERS: ATTENDING PHYSICIAN Internal Medicine Hematology & Oncology; FAMILY PHYSICIAN Internal Medicine
DX: D64.9 Anemia, unspecified (principal); D47.2 Monoclonal gammopathy; D70.9 Neutropenia, unspecified; D50.9 Iron deficiency anemia, unspecified; R53.82 Chronic fatigue, unspecified; D51.9 Vitamin B12 deficiency anemia, unspecified
CPT/HCPCS: 36415; 85025

== ENCOUNTER 2025-01-15 00:38 | Inpatient (IN) | payer MEDICARE, BC, SELFPAY ==
[2025-01-14] VITALS (11 sets, daily range): BP systolic 96–194; BP diastolic 47–72; BMI 31.1
--- NOTE | 2025-01-14 17:29 | ED.GENMED ---
History of Present Illness
General
Chief Complaint: Urinary Symptoms
Source: family and ambulance crew
Exam Limitations: altered mental status
Time Seen by Provider: 01/14/25 17:20
History of Present Illness
History of Present Illness:
74yoF with a history of prior CVA on Plavix, hypertension, hyperlipidemia, and insulin-dependent diabetes presenting via EMS for evaluation of confusion. Patient unable to provide any significant history and history obtained from . Patient
was reportedly complaining of a headache earlier today. She vomited several times and was complaining of feeling cold. noticed that she was starting to appear confused and called EMS. She finished an antibiotic a few days ago for a
urinary tract infection. Patient's only complaint at this time is dry mouth and feeling thirsty.
Past History
Past History
ED Past Medical History: HTN, Hypercholesterolemia, NIDDM, Other and Other
ED Past Surgical History: , Orthopedic and Other
Social History
Tobacco: Non-smoker
Alcohol: Occasional
Drug: None
Personal:
Living: with family
Family History
Family History: Other (Reviewed and noncontributory)
Phy Exam
General Physical Exam
General Presentation: mild distress
General Skin: warm and dry
General Habitus: elderly
General Mental: alert
ENT Exam
ENT Exam: normocephalic
Cardiovascular Exam
Cardiovascular Exam: regular rate/rhythm
Pulmonary Exam
Pulmonary Exam: no respiratory distress, no crackles, no rhonchi, no stridor and no wheezing
Gastrointestinal Exam
Gastrointestinal Exam: non tender, soft and non distended
Neurological Exam
Neurological Exam: alert and other (Patient appears confused although is able to accurately state year, birthdate, and that she is in a hospital)
Norma Coma Scale
Eye Opening: Spontaneous
Verbal Response: Confused
Motor Response: Obeys Commands
GCS Total Score: 14
Skin Exam
Skin Exam: normal color and warm/dry
Sepsis
Sepsis Screening
Sepsis Assessment: Severe Sepsis
Sepsis Screening: Lactate >2mmol/L
Sepsis Screen
Sepsis Screen: Severe Sepsis
Date: 01/15/25
Time: 00:24
Course
Orders/Labs/Results
Orders:
Orders
01/14/25 17:20
Electrocardiogram (*1) Urgent
Reason for Study: Other
Other Reason for Exam: Possible Sepsis
EKG- Treatment ONCE
Straight cath- Treatment ONCE
01/14/25 17:22
Complete Blood Count/With Diff Urgent
Lactic Acid Q4H
Comment: ON ICE, CANCEL 2ND ORDER IF FIRST LACTIC ACID LEVEL <2
Urinalysis Reflex To Culture Urgent
Date Specimen was Collected: 01/14/25
Time Specimen was Collected: 17:20
Urine Microscopic Reflex Cult Urgent
Urine Culture Urgent
DOROTHY Source: U
Specimen Description:
Date Specimen was Collected: 01/14/25
Time Specimen was Collected: 17:20
01/14/25 17:28
0.9% Sodium Chloride 1000 ml [Nss] 1,000 ml IV BOLUS
Acetaminophen [Tylenol] 1,000 mg PO NOW STA
CR Chest Single View Urgent
Reason For Exam: fever
01/14/25 17:31
CT Head W/o Iv Contrast Urgent
Comment:
Reason For Exam: headache, confusion
01/14/25 17:38
CT Abd/pelvis Wo Iv Cont Urgent
Comment: changed to non contrast per PA
Reason For Exam: vomiting, fever
01/14/25 17:51
COVID-19 Antigen Urgent
Source: Nasal Swab
Blood Culture Q30M
DOROTHY Source: Blood/Venous
Specimen Description:
Influenza A+B Rapid Molecular Urgent
DOROTHY Source: Nasal Swab
Specimen Description:
01/14/25 19:43
Cefepime HCl [Maxipime] 2,000 mg IV NOW STA
01/14/25 19:46
Comprehensive Metabolic Panel Urgent
Blood Culture Q30M
DOROTHY Source: Blood/Venous
Specimen Description:
Sterile Water [Sterile Water For Injection] 20 ml .ROUTE .STK-MED
01/14/25 21:44
Lactic Acid Q4H
Comment: ON ICE, CANCEL 2ND ORDER IF FIRST LACTIC ACID LEVEL <2
01/14/25 23:10
Bedside Glucose- Treatment ONCE
0.9% Sodium Chloride 1000 ml [Nss] 1,000 ml IV BOLUS
01/14/25 23:26
Acetaminophen 1000MG/100Ml [Ofirmev] 1,000 mg in 100 ml IV ONCE
Acetaminophen IV Indication:: No AR & No Enteral Access
01/14/25 23:58
Venous Blood Gas Urgent
%Oxygen/Room Air: room air
01/15/25 00:15
Procalcitonin Stat
If negative, will antibiotics be d/c'd or not started: Yes
Does the patient have renal or hepatic impairment?: No
Any recent (w/in 48 hrs) physiologic stress (CPR, rhabdo): No
Vancomycin [Vancocin] 2,000 mg 0.9% Sodium Chloride 500 ml [Nss] 500 ml IV NOW
01/15/25 00:17
Ampicillin 2,000 mg 0.9% Sodium Chloride 100 ml [Nss] 100 ml IV NOW
Abnormal Lab Results
01/14/25 01/14/25 01/14/25
17:22 19:46 23:18
RBC 2.82 L 10^6/uL
(4.20-5.40)
Hgb 8.7 L D g/dL
(12.0-16.0)
Hct 27.6 L %
(37.0-47.0)
MCHC 31.5 L g/dL
(33.0-37.0)
MPV 11.8 H fL
(7.4-10.4)
Absolute Neuts (auto) 7.7 H 10^3/uL
(1.4-6.5)
Absolute Lymphs (auto) 0.5 L 10^3/uL
(1.2-3.4)
Neutrophils % 91.7 H %
(42.2-75.2)
Lymphocytes % 5.6 L %
(20.5-51.1)
Sodium 132 L mmol/L
(135-145)
Carbon Dioxide 19 L mmol/L
(22-30)
BUN 19 H mg/dl
(7-17)
Glucose 230 H mg/dl
(70-99)
Lactic Acid 2.9 H mmol/L
(0.7-2.0)
Total Protein 5.5 L g/dl
(6.3-8.2)
Albumin 3.2 L g/dl
(3.5-5.0)
Urine Ketones 3+ A
(Negative)
Ur Occult Blood Reflex 2+ A
(Negative)
Leukocyte Esterase Rfl 1+ A
(Negative)
Urine WBC (Reflex) 30-40 A /HPF
(0-5)
Urine Bacteria (Reflex) Few A
(Negative)
Urine Yeast Moderate A
(Negative)
Urine Glucose 2+ A
(Negative)
Urine Albumin (Reflex) 3+ A
(Neg - Trace)
POC Glucose 265 H mg/dl
(70-99)
01/14/25 17:22
01/14/25 19:46
Vital Signs
Initial and Last Documented VS:
Initial Vital Signs
Pulse Resp
91 26
01/14/25 17:03 01/14/25 17:03
Last Documented Vital Signs
Temp Pulse Resp BP Pulse Ox
102.5 F H 105 35 96/49 92
01/14/25 23:42 01/14/25 21:15 01/14/25 21:15 01/14/25 21:00 01/14/25 21:00
MDM/Problems Addressed
Differential Diagnosis Includes:
74yoF here with AMS. Family report vomiting and headache earlier today. Temp 100.5 on arrival. She appears confused although is able to answer basic questioning. Differential diagnosis includes but is not limited to: Sepsis, viral illness,
pneumonia, UTI, pyelonephritis, bacteremia
Initial ED plan: Check septic workup including lactate, blood cultures, COVID/flu swab, UA, and chest x-ray. Will also obtain head CT given altered mental status. Tylenol and IV fluid bolus.
*Pulse Oximetry
SaO2: 95
Oxygen Mode of Delivery: Room air
Patient hypoxic: no
*EKG
Interpreted by ED Provider?: Yes
EKG Intrepretation Date: 01/14/25
Heart Rate: 89
Rate: normal
Rhythm: sinus
Cost: normal axis
Interval: normal interval
QRS Pattern: normal QRS
Ischemia: no ischemia
*Critical Care Note
Total Time (30-74mins, 75-104mins- exclusive of procedures): Not Applicable
Update Note
Update Note:
Labs reveal a lactate of 2.9. White count within normal limits although left shift is present. Viral testing negative. UA with 30-40 WBCs although only few bacteria present. Possible pneumonia versus atelectasis on chest x-ray and moderate acute
left frontal sinusitis on head CT. IV cefepime ordered and patient admitted for further management.
ED Attending Note
-
Portions of this chart may have been created with voice recognition software.� Occasional wrong word or��sound alike� substitutions may have occurred due to the inherent limitations of voice recognition software.
Discharge Plan
Departure
Patient Disposition: Admit
Date of Disposition: 01/14/25
Time of Disposition: 22:38
Presentation/result/management discussed w/ accepting MD/DO: Hospitalist
Discharge Problem:
Fever, Altered mental status
Prescriptions:
No Action
acetaminophen [Pain Relief ES (acetaminophen)] 500 mg Tablet
1,000 mg PO TID Qty: 10 0RF
methocarbamol 500 mg Tablet
500 mg PO TID
prednisone 5 mg Tablet
5 mg PO DAILY
Kineret 100 mg/0.67 mL Syringe
100 mg SC DAILY
insulin aspart U-100 [Novolog FlexPen U-100 Insulin] 100 unit/mL (3 mL) Insulin Pen
2 sliding scale dose SC DIRECTED
vitamin [id number] acid 1,000-400 mcg Tablet, Sublingual
1,000 tab SUBLINGUAL DAILY
Azo Cranberry 250 mg Tablet,Chewable
250 mg PO TID
Glucosamine Chondroitin 550-30-1 mg Capsule
See Rx Instructions .ROUTE .COMPLEX
Rx Instructions:
Pt does not know.
atorvastatin 80 mg tablet
40 mg PO QPM
insulin glargine [Lantus Solostar U-100 Insulin] 100 unit/mL (3 mL) insulin pen
18 unit SC DAILY
methocarbamol 500 mg Tablet
500 mg PO TIDPRN PRN (Reason: muscle spasam)
escitalopram oxalate 5 mg Tablet
10 mg PO DAILY Qty: 90 0RF
metformin 500 mg Tablet
500 mg PO BID@0800,1700 Qty: 180 0RF
tramadol 50 mg Tablet
50 mg PO Q6HPRN PRN (Reason: severe pain) Qty: 20 0RF
famotidine 40 mg Tablet
40 mg PO DAILY Qty: 90 0RF
clopidogrel 75 mg Tablet
75 mg PO DAILY Qty: 90 0RF
losartan 25 mg Tablet
25 mg PO DAILY Qty: 90 0RF
metoprolol tartrate 25 mg Tablet
12.5 mg PO BID Qty: 180 0RF
Rx Instructions:
Take 0.5 tablets(12.5mg total) two times a day
cholecalciferol (vitamin D3) 25 mcg (1,000 unit) Tablet
25 mcg PO DAILY Qty: 90 0RF
Referrals:
Nhiarika Wilson [employer]VEYOR SYSTEM OPERATOR [Family Provider, Internal Medicine]
Interventions
Interventions:
*Risk Screen - Suicide Last Done: 01/14/25 17:04
*General Assessment Last Done: 01/14/25 17:04
*Neglect/Abuse Screening Last Done: 01/14/25 17:04
*ED- Fall Risk Assessment Last Done: 01/14/25 17:04
*ED COVID-19 Vaccine History Last Done: 01/14/25 17:04
*ED Influenza Vaccine History Last Done: 01/14/25 17:04
ED-Female Genitourinary Assessment Last Done: 01/14/25 17:04
Discharge Date and Time
Print Language: GERMAN
[2025-01-14 17:51] LABS: Hematocrit 27.6 % (37.0-47.0); Hemoglobin 8.7 g/dL (12.0-16.0); Mean Corp Hgb Conc. 31.5 g/dL (33.0-37.0); Mean Corpuscular Volume 97.9 fL (81.0-99.0); Nucleated Red Blood Cells % 0 %; Platelet Count 136 10^3/uL (130-400); Red Cell Dist. Width 14.1 % (11.5-14.5)
[2025-01-14 17:58] LABS: Urine Character Clear (Clear)
[2025-01-14 18:22] LABS: Urine Red Blood Cell 0-2 /HPF (0-2); Urine Squamous Cell 26-30 /LPF (Few); Urine White Cell 30-40 /HPF (0-5)
[2025-01-14] MEDS: TYLENOL 1000 MG PO (18:31)
[2025-01-14 18:32] LABS: COVID-19 Antigen Negative (Negative)
[2025-01-14] MEDS: NSS 1000 IV ×2 (18:39→23:20)
[2025-01-14] MEDS: MAXIPIME 2000 MG IV (19:47)
[2025-01-14 20:19] LABS: ALT (SGPT) 14 U/L (0-35); AST (SGOT) 18 U/L (14-36); Albumin 3.2 g/dl (3.5-5.0); Alkaline Phosphatase 71 U/L (38-126); Blood Urea Nitrogen 19 mg/dl (7-17); Calcium 8.5 mg/dl (8.4-10.2); Carbon Dioxide 19 mmol/L (22-30); Chloride 106 mmol/L (98-107); Glucose 230 mg/dl (70-99); Potassium 4.4 mmol/L (3.5-5.1); Sodium 132 mmol/L (135-145)
[2025-01-14 20:29] LABS: Estimated Creatinine Clearance 60 ml/min; Total Protein 5.5 g/dl (6.3-8.2); eGFR > 60.00
[2025-01-14 23:20] LABS: Glucose - Point of Care 265 mg/dl (70-99)
[2025-01-14] MEDS: OFIRMEV 100 IV (23:38)
--- NOTE | 2025-01-14 23:46 | HPS.HSE ---
Family Physician
-
Family Physician: Niharika Wilson
Chief Complaint
-
Urinary symptoms
History of Present Illness
This is a 73-year-old with past medical history significant for insulin-dependent diabetes, hypertension, hyperlipidemia, rheumatoid arthritis, CVA presenting to the emergency department with confusion and a headache.
According to family members patient was in usual state of health up until this morning when she arose and complained of a headache. She then started to have chills. She stopped some Tylenol and tried to sleep. When she woke up she was confused
and unable to answer questions appropriately. She otherwise was unable at a time of my interview to provide any review of systems or any other history. Per family she had no recent urinary tract infections. She had not been on any recent
antibiotics. She denied any recent instrumentation. She has no diarrhea no vomiting. She had a flu shot about 1-1/2 weeks ago.
In the ED she was borderline hypotensive with a blood pressure of 96/49, pulse rate of 105�tachypneic to 35 and 8 temperature of 102.5 satting 92% on room air. CBC was notable for WBC of 8.3, hemoglobin 8.7 and platelet of 136. Electrolytes were
mostly unremarkable with normal BUN and creatinine and a glucose of 230. Lactic acid was elevated at 2.7. UA she is likely contaminated with yeast squamous cells but does have 1+ leukocyte esterase and a few bacteria with some WBCs. COVID and
influenza testing negative.
X-ray of the chest shows a possible moderate airspace opacity in the posterior basilar of the left lower lobe. CT of the abdomen pelvis with mild acute stercoral colitis and fecal impaction in the rectum. Moderate to severe chronic bilateral renal
disease also noted but otherwise no other focal or acute findings.
Medical History
Past Medical History
Past Medical History: Reports CVA, HTN, Hypercholesterolemia and IDDM
Past Surgical History: Reports
Social History
Tobacco: Non-smoker
Alcohol: Occasional
Drug: None
Personal:
Living: With Family
Family History
Family History: Not pertinent
Allergies / Home Medications
Allergies reflects when Allergies were last updated in [facility].
Home Medications with original date entered in [facility]
Allergy/Medication List:
Allergies
Allergy/AdvReac Type Severity Reaction Status Date / Time
cefaclor Allergy tolerating Verified 01/14/25 17:19
cefepime
04/14/22
ciprofloxacin Allergy Rash Verified 01/14/25 17:19
clindamycin Allergy Rash Verified 01/14/25 17:19
doxycycline Allergy Rash Verified 01/14/25 17:19
erythromycin base Allergy Rash Verified 01/14/25 17:19
melatonin Allergy Pharmacy Verified 01/14/25 17:19
to Review
Sulfa (Sulfonamide Allergy Rash Verified 01/14/25 17:19
Antibiotics)
vancomycin Allergy Rash Verified 01/14/25 17:19
'all antibx except for Allergy Unknown Uncoded 01/14/25 17:19
keflex&PCN'
Home Medications
methocarbamol 500 mg tablet 500 mg PO TIDPRN PRN muscle spasam 05/01/22
cholecalciferol (vitamin D3) 25 mcg (1,000 unit) tablet 25 mcg PO DAILY #90 tabs 05/15/22
clopidogrel 75 mg tablet 75 mg PO DAILY #90 tabs 05/15/22
escitalopram oxalate 5 mg tablet 10 mg (2 x 5 mg) PO DAILY #90 tabs 05/15/22
famotidine 40 mg tablet 40 mg PO DAILY #90 tabs 05/15/22
losartan 25 mg tablet 25 mg PO DAILY #90 tabs 05/15/22
metformin 500 mg tablet 500 mg PO BID@0800,1700 #180 tabs 05/15/22
metoprolol tartrate 25 mg tablet 12.5 mg (1/2 x 25 mg) PO BID #180 tabs 05/15/22
tramadol 50 mg tablet 50 mg PO Q6HPRN PRN severe pain #20 tabs 05/15/22
acetaminophen 500 mg tablet (Pain Relief Extra Strength (acetaminophen)) 1,000 mg (2 x 500 mg) PO TID #10 tabs 01/22/23
anakinra 100 mg/0.67 mL subcutaneous syringe (Kineret) 100 mg SC DAILY 01/14/25
atorvastatin 80 mg tablet 40 mg PO QPM 01/14/25
cranberry fruit concentrate 250 mg chewable tablet (Azo Cranberry) 250 mg PO TID 01/14/25
glucosamine sulf dipot chlr,msm,chond 550 mg-C 30 mg-heather 1 mg capsule (Glucosamine Chondroitin) See Rx Instructions .Route .COMPLEX 01/14/25
insulin aspart U-100 100 unit/mL (3 mL) subcutaneous pen (Novolog FlexPen U-100 Insulin aspart) 2 sliding scale dose SC DIRECTED 01/14/25
insulin glargine 100 unit/mL (3 mL) subcutaneous pen (Lantus Solostar U-100 Insulin) 18 unit SC DAILY 01/14/25
methocarbamol 500 mg tablet 500 mg PO TID 01/14/25
prednisone 5 mg tablet 5 mg PO DAILY 01/14/25
vitamin B12 1,000 mcg-folic acid 400 mcg sublingual tablet 1,000 tab sublingual DAILY 01/14/25
Review of Systems
-
Unable to obtain full review of systems at this time due to: Patient Non-verbal
Physical Exam
Vital Signs
Vital Signs
Temp Pulse Resp BP Pulse Ox
102.5 F H 105 35 96/49 92
01/14/25 23:42 01/14/25 21:15 01/14/25 21:15 01/14/25 21:00 01/14/25 21:00
Physical Exam
General: No Apparent Distress
HEENT: NormoCephalic, Anicteric, PERRLA and [place] Conjunctivae; No Moist mucous membranes
Respiratory: Clear
Cardiac: S1/S2 and Regular Rhythm; No Murmur, Rub, Gallop or Peripheral Edema
Breast: Deferred by me
GI: Soft, Non Tender, Non Distended and Normal Bowel Sounds
Rectal: Deferred by Provider
Genito-urinary: Deferred by me
Musculoskeletal: No Clubbing, No Cyanosis and No Edema
Skin: Warm and Dry; No Rash
Neuro: Awake, Oriented (Oriented to person only), Nonfocal/grossly intact and Other; No Slurred Speech, Facial Droop or Tremors
Psych: Calm
Laboratory Results
-
01/14/25 17:22
01/14/25 19:46
Laboratory Results
Lactic Acid 2.9 mmol/L (0.7-2.0) H 01/14/25 17:22
Total Bilirubin 0.5 mg/dl (0.2-1.3) 01/14/25 19:46
AST 18 U/L (14-36) 01/14/25 19:46
ALT 14 U/L (0-35) 01/14/25 19:46
Alkaline Phosphatase 71 U/L (38-126) 01/14/25 19:46
Impression/Plan
-
IMPRESSION:
Patient with likely left basilar pneumonia with fever, tachypnea and elevated lactic acid 2.7. She shows otherwise no other organ dysfunction. Urine is a multi/polymicrobial unlikely to be etiology of infectious process.
PLAN:
Sepsis with encephalopathy secondary to unclear source. Possible PNA but Xray equivocal and CTa/p shows more atelectasis rather than pna. Given headache and AMS cannot rule meningitis. History of right shoulder arthritis s/p abx spacer in
septemeber. Cannot rule out bacteremia. CT head is negative.
- Admit to telemetry
- incentive spirometry
- oxygen prn and monitoring
- check procal stat and non-contrast CT
- prn nebs
- blood and urine cultures sent and pending
- check am cortisol
- IV cefepime, vanc (slowly) and ampicillin + acyclovir
- ID consult
- npo for now, continue LR at 100ml/hr
Anemia - Hgb drop from 11 1 week ago. No evidence of bleeding
- guaiac stools
- trend H/H q 24 hr
- ppi daily for now
- iron panel
- type and screen and transfuse for hgb < 7
Diabetes
- hold metformin
- continue lantus 15 units daily
- sliding scal einsulin
Hypertension
- hold losartan
- continue metoprolol tartrate with hold parameters
CVA
- continue clopidogrel and atorvastatin
Rheumatoid arthritis
- continue prednisone 5
DVT PPX - lovenox sq
Code status - Full Code
[2025-01-15] VITALS (25 sets, daily range): BP systolic 102–195; BP diastolic 44–105
[2025-01-15] MEDS: AMPICILLIN 108 MG IV ×3 (00:34→12:56)
[2025-01-15 00:39] LABS: Venous Blood Gas B.E. -12.3 mmol/L (-4 to +4); Venous Blood Gas O2 Sat % 99.7 %
[2025-01-15 01:19] LABS: Procalcitonin < 0.05 ng/ml (0.0-0.25)
--- NOTE | 2025-01-15 01:49 | EDRN ---
this RN verified with Dr. Camejo that he wanted to administer Vancomycin despite allergy and he instructed this RN to hold the medication.
[2025-01-15] MEDS: VANCOCIN IV (01:53)
[2025-01-15] MEDS: LR 1000 IV (02:25)
--- NOTE | 2025-01-15 03:10 | EDRN ---
Per Dr. Camejo, proceed with administering Vancomycin.
[2025-01-15] MEDS: TORADOL 15 MG IV (03:13)
[2025-01-15] MEDS: VANCOCIN 540 MG IV (03:14)
--- NOTE | 2025-01-15 03:17 | EDRN ---
per Dr. Camejo, administer Vancomycin, then Acyclovir
--- NOTE | 2025-01-15 03:50 | EDRN ---
Per Dr. Camejo, only administer one antibiotic at a time.
[2025-01-15] MEDS: TYLENOL/FEVERALL 650 MG RECTAL ×2 (04:47→13:35)
[2025-01-15 05:40] LABS: Glucose - Point of Care 206 mg/dl (70-99)
--- NOTE | 2025-01-15 06:14 | PHA.VAN.IN ---
Assessment
- Assessment
Renal Function: Appears similar to baseline
Concomitant Antimicrobials: ampicillin, acyclovir (antiviral), cefepime
AUC Dosing Plan
- Empiric Dosing
Initial / Loading Dose: 2000 mg x 1 @ 0000
Maintenance Regimen: 1500 mg Q24H. Note infusing over extended rate to minimize possible rxn
Estimated AUC (mcg*h/mL): 504
Estimated Peak (mcg*h/mL): 34.7
Estimated Trough (mcg/ml): 11.1
Estimated Half Life (H): 12.8
- Monitoring
No levels ordered at this time: level to be ordered upon follow-up
MRSA Screen: Ordered per protocol
Pharmacokinetics Vancomycin I
- -
Patient Age: 74
Patient Sex: Female
Vancomycin Day #: 1
Indication: Pulmonary/Respiratory
Requesting Provider: Lee Ann HERNANDEZ
Pertinent Antimicrobial Allergies:
cefaclor, ciprofloxacin, clindamycin,doxycycline, erythromycin, sulfa, vancomycin (rash)
Height / Weight:
Height 5 ft 5 in
Actual Weight 84.822 kg
- Vital Signs / Lab Results
Temp Pulse Resp BP Pulse Ox
101.3 F H 99 24 173/66 97
01/15/25 04:38 01/15/25 06:00 01/15/25 06:00 01/15/25 06:00 01/15/25 06:00
Lab Results - Hematology
01/14/25
17:22
WBC 8.3
Lab Results - Chemistry
01/14/25 01/14/25
17:22 19:46
BUN Cancelled 19 H
Creatinine Cancelled 0.9
Estimated Creat Clear Cancelled 60
Albumin Cancelled 3.2 L
01/14/25 01/15/25
17:22 00:27
Lactic Acid 2.9 H 1.5
Lab Results - Urine
01/14/25
17:22
Urine Nitrite (Reflex) Negative
Leukocyte Esterase Rfl 1+ A
Urine WBC (Reflex) 30-40 A
Ur Squamous Epith Cells 26-30
Urine Bacteria (Reflex) Few A
Microbiology Results
01/14/25 17:51 Influenza Types A & B (TERRI) - Final
Nasal Swab Negative for Influenza A & B, NAAT
Negative results must be combined with clinical observations
and patient history.
Nucleic Acid Amplification test (NAAT)performed on the
[employer] platform.
[2025-01-15] MEDS: ZOVIRAX INJECTION 267 MG IV ×3 (08:10→23:04)
[2025-01-15] MEDS: STERILE WATER FOR INJECTION IV (08:11)
[2025-01-15] MEDS: MAXIPIME IV (08:11)
[2025-01-15] MEDS: VITAMIN D3 (cholecalciferol) PO (08:12)
[2025-01-15] MEDS: PLAVIX PO (08:12)
[2025-01-15] MEDS: AMPICILLIN IV (08:12)
[2025-01-15] MEDS: TOPROL XL PO ×2 (08:12→19:40)
[2025-01-15] MEDS: DELTASONE PO (08:12)
[2025-01-15] MEDS: PEPCID PO (08:12)
[2025-01-15] MEDS: METHOCARBAMOL PO ×3 (08:12→21:30)
[2025-01-15] MEDS: LEXAPRO PO (08:12)
--- NOTE | 2025-01-15 08:31 | W.PN.HOSP.TC ---
Addendum entered and electronically signed by Carissa Coronado MD 01/15/25 16:40:
I saw and evaluated the patient independently. I reviewed and discussed the resident�s note and agree with findings and plan as documented by Dr. Mckay.
GENERAL: well developed, well nourished, obese female in no apparent distress
HEENT: NC/AT--right gaze preference--not tracking, not following commands
HEART: regular rate and rhythm, +S1, +S2, ISHA
LUNGS : clear to auscultation bilaterally
ABDOM: soft, nontender, nondistended, + bowel sounds
EXT: no cyanosis, clubbing, or edema
NEUROLOGIC: not following commands
Sepsis with encephalopathy secondary to unclear source- concern for meningoencephalitis given neuro exam, headache, fever--CXR equivocal for PNA and CT abdomen/pelvis shows more atelectasis rather than PNA--History of right shoulder arthritis s/p
abx spacer in November, and finished 6 weeks of ABX on 01/06/25-- CT head is negative--apprec ID, IR consulted for LP (only 1 cc obtained)--follow cultures--empiric abx for meningitis (IV cefepime, vanco (slowly) and ampicillin + acyclovir) --cont
stress dose steroids--NPO/IVF--neuro consult
Acute Anemia on anemia of chronic disease--unclear cause--?dilutional--heme check stool, follow HGB, iron studies more consistent with chronic disease--PPI--transfuse for HGB < 7
Type 2 Diabetes mellitus--agree with holding metformin for now--SSI and check HGB A1C- continue lantus 15 units daily--consult DM TOW PICKER
Essential Hypertension-- hold losartan- continue metoprolol tartrate with hold parameters as able
CVA-held clopidogrel 01/15/25 PM for anticipated lumbar puncture--can restart- hold atorvastatin while NPO
Rheumatoid arthritis- On prednisone 5 at home. Held- Stress-dose steroids with dexamethasone 10 mg q6h IV
DVT Proph - lovenox sq
Code status - Full Code
Family:
Dieudonne (son): [phone]
Korin (daughter): [phone]
Original Note:
Today's Communication/Plan
-
Anticipate lumbar puncture to evaluate for meningoencephalitis.
Held plavix for procedure.
Continue empiric abx for meningitis: cefepime, vanc, ampicillin, acyclovir.
Admitted to IMU.
Assessment / Plan
Assessment / Plan
Impression
Patient with likely left basilar pneumonia with fever, tachypnea and elevated lactic acid 2.7. She shows otherwise no other organ dysfunction. Urine is a multi/polymicrobial unlikely to be etiology of infectious process.
HPI
This is a 74-year-old with past medical history significant for insulin-dependent diabetes, hypertension, hyperlipidemia, rheumatoid arthritis, CVA presenting to the emergency department with confusion and a headache.
According to family members patient was in usual state of health up until this morning when she arose and complained of a headache. She then started to have chills. She stopped some Tylenol and tried to sleep. When she woke up she was confused
and unable to answer questions appropriately. She otherwise was unable at a time of my interview to provide any review of systems or any other history. Per family she had no recent urinary tract infections. She had not been on any recent
antibiotics. She denied any recent instrumentation. She has no diarrhea no vomiting. She had a flu shot about 1-1/2 weeks ago.
In the ED she was borderline hypotensive with a blood pressure of 96/49, pulse rate of 105�tachypneic to 35 and 8 temperature of 102.5 satting 92% on room air. CBC was notable for WBC of 8.3, hemoglobin 8.7 and platelet of 136. Electrolytes were
mostly unremarkable with normal BUN and creatinine and a glucose of 230. Lactic acid was elevated at 2.7. UA she is likely contaminated with yeast squamous cells but does have 1+ leukocyte esterase and a few bacteria with some WBCs. COVID and
influenza testing negative.
X-ray of the chest shows a possible moderate airspace opacity in the posterior basilar of the left lower lobe. CT of the abdomen pelvis with mild acute stercoral colitis and fecal impaction in the rectum. Moderate to severe chronic bilateral renal
disease also noted but otherwise no other focal or acute findings.
EKG�normal sinus rhythm
CXR 01/14/2025
1. Moderate airspace opacity in the posterior basilar left lower lobe. Diagnostic possibilities are (1) left lower lobe pneumonia or (2) scarring and subsegmental atelectasis.
2. Mild cardiomegaly.
3. Mildly decreased lung volumes.
4. Cement spacer in the left proximal humerus.
CT head 01/14/2025
1. MODERATE ACUTE LEFT FRONTAL SINUSITIS.
2. No CT evidence for acute intracranial hemorrhage or transcortical infarct.
3. VERY SEVERE BILATERAL HYPEROSTOSIS FRONTALIS INTERNA and ossification in the anterior interhemispheric falx causing mild mass effect on the frontal lobe gyri.
4. Moderate bilateral frontal and parietal lobe volume loss.
CT abdomen pelvis 01/14/2025
1. Mild acute stercoral colitis and fecal impaction in the rectum.
2. Moderate to severe chronic bilateral renal disease.
3. Very severe calcific atherosclerotic plaque in the abdominal aorta, femoral, and visceral arteries.
4. Small hiatal hernia.
5. Mild cardiomegaly.
6. Severe discogenic degenerative disease at L5/S1.
Plan
Sepsis with encephalopathy secondary to unclear source. Possible meningoencephalitis. Xray equivocal for PNA and CTa/p shows more atelectasis rather than pna. Given headache and AMS cannot rule meningitis. History of right shoulder arthritis s/p
abx spacer in septemeber. Cannot rule out bacteremia. CT head is negative.
- Admit to telemetry
- incentive spirometry
- oxygen prn and monitoring
- Procal less than 0.05
� CT head: 1. MODERATE ACUTE LEFT FRONTAL SINUSITIS. 2. No CT evidence for acute intracranial hemorrhage or transcortical infarct. 3. VERY SEVERE BILATERAL HYPEROSTOSIS FRONTALIS INTERNA and ossification in the anterior interhemispheric falx
causing mild mass effect on the frontal lobe gyri.
� CT abdomen pelvis Noncon: Mild acute stercoral colitis and fecal impaction in the rectum.
- prn nebs
- blood cultures: pending
- urine cx: 20,000 CFU/ML Mixed david present: Probable contamination
� UA: Moderate yeast, few bacteria, 30-40 WBCs, 26-38 squamous epithelial cells, 1+ leukocyte esterase, negative nitrites, 2+ glucose
� COVID-negative
- check am cortisol
- Empiric abx for suspected meningoencephalitis: IV cefepime, vanc (slowly) and ampicillin + acyclovir
- npo for now, continue LR at 100ml/hr
- Lumbar puncture & CSF analysis pending. IR consult
- ID consult
- Neuro consult
Anemia - Hgb drop from 11 1 week ago. No evidence of bleeding
- guaiac stools
- trend H/H q 24 hr
- ppi daily for now
- iron panel
- type and screen and transfuse for hgb < 7
� Iron studies consistent with anemia of chronic disease in 12/09/2024
Diabetes
- hold metformin due to NPO
- continue lantus 15 units daily
- sliding scale insulin
� Diabetes management consult
Hypertension
- hold losartan
- continue metoprolol tartrate with hold parameters
CVA
- held clopidogrel 01/15/25 PM for anticipated lumbar puncture
- hold atorvastatin while NPO
Rheumatoid arthritis
- On prednisone 5 at home. Held
- Stress-dose steroids with dexamethasone 10 mg q6h IV
DVT PPX - lovenox sq
Code status - Full Code
Family:
Dieudonne (son): [phone]
Korin (daughter): [phone]
Anticipated Discharge: > 48 hours
Subjective/Interval History
-
Date of Service: January 15, 2025
This morning, patient was saying 'please help me' repeatedly (would not respond to questions). Appeared delirious/confused.
Objective Data
-
Labs:
Microbiology Results - Entire Visit
01/14/25 17:22 Urine Urine Culture - Final
01/15/25 08:27 Nose Nasal Screen MRSA (PCR) - Final
MRSA not detected - performed by PCR methodology.
01/14/25 17:51 Nasal Swab Influenza Types A & B (TERRI) - Final
Negative for Influenza A & B, NAAT
Negative results must be combined with clinical observations
and patient history.
Nucleic Acid Amplification test (NAAT)performed on the
[employer] platform.
Hematology and Coagulation - Last 24 hours
01/14/25 01/15/25 01/15/25 Range/Units
17:22 08:56 11:45
WBC 8.3 11.1 H (4.8-10.8) 10^3/uL
RBC 2.82 L 3.30 L (4.20-5.40) 10^6/uL
Hgb 8.7 L D 9.9 L (12.0-16.0) g/dL
Hct 27.6 L 30.9 L (37.0-47.0) %
MCV 97.9 93.6 (81.0-99.0) fL
MCH 30.9 30.0 (27.0-31.0) pg
MCHC 31.5 L 32.0 L (33.0-37.0) g/dL
RDW 14.1 14.4 (11.5-14.5) %
Plt Count 136 D 167 D (130-400) 10^3/uL
MPV 11.8 H 11.5 H (7.4-10.4) fL
Abs Immat Gran (auto) 0.0 (0-0.05) 10^3/uL
Absolute Neuts (auto) 7.7 H (1.4-6.5) 10^3/uL
Absolute Lymphs (auto) 0.5 L (1.2-3.4) 10^3/uL
Absolute Monos (auto) 0.1 (0.1-0.6) 10^3/uL
Absolute Eos (auto) 0.0 (0-0.7) 10^3/uL
Absolute Basos (auto) 0.0 (0-0.2) 10^3/uL
Immature Gran % 0.5 (0-0.5) %
Neutrophils % 91.7 H (42.2-75.2) %
Lymphocytes % 5.6 L (20.5-51.1) %
Monocytes % 1.7 (1.7-9.3) %
Eosinophils % 0.0 (0-6) %
Basophils % 0.5 (0-2) %
Nucleated RBC % 0 %
PT 13.5 (11.4-14.6) Sec
INR 1.00
Blood Gas and Chemistry - Last 24 hours
01/14/25 01/14/25 01/15/25 Range/Units
17:22 19:46 00:27
VBG pH 7.34 (7.32-7.43)
VBG pCO2 22 L (35-48) mmHg
VBG pO2 141 H (30-50) mmHg
VBG HCO3 11.9 L (22-27) mmol/L
VBG O2 Sat (Kandice) 99.7 %
VBG Base Excess -12.3 (-4 to +4) mmol/L
VBG O2 Therapy
Sodium Cancelled 132 L
Potassium Cancelled 4.4
Chloride Cancelled 106
Carbon Dioxide Cancelled 19 L
BUN Cancelled 19 H
Creatinine Cancelled 0.9
Estimated Creat Clear Cancelled 60
eGFR Cancelled > 60.00
Glucose Cancelled 230 H
Lactic Acid 2.9 H 1.5 (0.7-2.0) mmol/L
Calcium Cancelled 8.5
Iron (37-170) ug/dl
TIBC (265-497) ug/dl
% Saturation (20-50) %
Ferritin (11.1-264.0) ng/ml
Total Bilirubin Cancelled 0.5
AST Cancelled 18
ALT Cancelled 14
Alkaline Phosphatase Cancelled 71
Total Protein Cancelled 5.5 L
Albumin Cancelled 3.2 L
Vitamin B12 (239-931) pg/ml
Folate (2.76-20) ng/ml
Procalcitonin < 0.05 (0.0-0.25) ng/ml
Random Cortisol ug/dl
01/15/25 Range/Units
08:56
VBG pH (7.32-7.43)
VBG pCO2 (35-48) mmHg
VBG pO2 (30-50) mmHg
VBG HCO3 (22-27) mmol/L
VBG O2 Sat (Kandice) %
VBG Base Excess (-4 to +4) mmol/L
VBG O2 Therapy
Sodium 136
Potassium 4.2
Chloride 109 H
Carbon Dioxide 16 L
BUN 18 H
Creatinine 0.9
Estimated Creat Clear 60
eGFR > 60.00
Glucose 232 H
Lactic Acid (0.7-2.0) mmol/L
Calcium 8.3 L
Iron 31 L (37-170) ug/dl
TIBC 187 L (265-497) ug/dl
% Saturation 16 L (20-50) %
Ferritin 324.0 H (11.1-264.0) ng/ml
Total Bilirubin 0.4
AST 19
ALT 14
Alkaline Phosphatase 75
Total Protein 5.3 L
Albumin 3.0 L
Vitamin B12 794 (239-931) pg/ml
Folate 11.1 (2.76-20) ng/ml
Procalcitonin Cancelled (0.0-0.25) ng/ml
Random Cortisol 36.8 ug/dl
Blood Bank Tests - Last 24 hours
01/15/25 01/15/25 Range/Units
08:56 10:05
Blood Type A POS
Blood Type Confirm A POS
Antibody Screen Negative (Negative)
Other lab results - Last 24 hours
01/14/25 01/14/25 Range/Units
17:22 17:51
Urine Color Yellow
Urine Clarity Clear (Clear)
Urine pH 5.0 (5.0-9.0)
Ur Specific [place] 1.020 (<1.030)
Urine Ketones 3+ A (Negative)
Ur Occult Blood Reflex 2+ A (Negative)
Urine Nitrite (Reflex) Negative (Negative)
Urine Bilirubin Negative (Negative)
Urine Urobilinogen Negative (Neg - 1+)
Leukocyte Esterase Rfl 1+ A (Negative)
Urine RBC 0-2 (0-2) /HPF
Urine WBC (Reflex) 30-40 A (0-5) /HPF
Ur Squamous Epith Cells 26-30 (Few) /LPF
Urine Bacteria (Reflex) Few A (Negative)
Hyaline Casts 0-2 (0-2) /LPF
Urine Yeast Moderate A (Negative)
Urine Glucose 2+ A (Negative)
Urine Albumin (Reflex) 3+ A (Neg - Trace)
SARS-CoV-2 Antigen Negative (Negative)
Miscellaneous Lab Results - Last 24 hours
01/14/25 01/15/25 01/15/25 Range/Units
23:18 05:39 12:08
POC Glucose 265 H 206 H 219 H (70-99) mg/dl
Vital Signs:
Vital Signs
Temp Pulse Resp BP Pulse Ox
99.2 F 87 23 145/70 98
01/15/25 08:27 01/15/25 08:15 01/15/25 08:15 01/15/25 08:00 01/15/25 08:15
I&O
01/14/25 01/15/25 01/16/25
06:59 06:59 06:59
Output Total 500 / 500
Balance -500 / -500
Review of Systems
-
Unable to obtain full review of systems at this time due to: Other (delirious)
History Source: Patient
Physical Exam
-
General: Well Developed and Well Nourished; Negative Conversant
HEENT: Normocephalic, Atraumatic, Anicteric, No Ptosis and PERRLA (right gaze preference); Negative Moist Mucous Membranes
Respiratory: Crackles
Cardiac: Regular Rhythm, S1/S2 and Murmur (systolic murmur)
GI: Soft, Nontender, Nondistended and Normal Bowel Sounds
Musculoskeletal: No Clubbing, No Cyanosis and No Edema
Skin: Warm and Dry
Neuro: Awake
Psych: Confused and Anxious; Negative Intact Judgement/Insight
--- NOTE | 2025-01-15 09:30 | CON.ID ---
Addendum entered and electronically signed by Cecile Quarles MD 01/15/25 16:56:
CSF results now available
minimally elevated WBC at 18, elevated protein, culture in progress
stop vanc, ampicillin
continue ceftriaxone, add doxycycyline, continue acycylovir
when feasible would proceed to MRI brain
AW
Addendum entered and electronically signed by Cecile Quarles MD 01/15/25 16:01:
Call back from Dr Alejandra's office. Ms Obando underwent hardwear removal Nov 27, cultures were ultimately negative and she was started on tedizolid. Unfortunately her course was complicated first by dysuria treated empirically with a 5 day
course of nitrofurantoin. Later she developed nausea and diarrhea attributed to the Tedizolid and she was switched to doxycycline on 12/24 to complete the 6 week antibiotic course on 01/06. There are plans for a two week antibiotic holiday
followed by diagnostic arthroscopy with operative cultures and restarting the doxycycyline post operatively. Currently she is off of the doxycycline.
Addendum entered and electronically signed by Cecile Quarles MD 01/15/25 15:38:
contacted by IR only 1 cc of CSF was able to be obtained, called lab asked for cell count, then protein, glucose then culture
PCP Katie also tells me her outpatient ID doctor is Aline Alejandra at [facility] and she is on doxycycline and tedizolid for the right shoulder pji which currently has an antibiotic spacer. Shoulder was to be replaced 02/[address] Campos. For
now these medications can be held while she is on vancomycin. I did call and leave a message to confirm the regimen and inquire about previous cultures.
urine culture 12/28 10-25 CFU Morganella isolate resistant to macrobid.
Addendum entered and electronically signed by Cecile Quarles MD 01/15/25 15:05:
contacted by PCP Dr Niharika Wilson who confirms recent UTI treated with macrobid. Also reports recent courses of doxycycline and tedizolid.
chart reviewed and LP results not yet available
Addendum entered and electronically signed by Cecile Quarles MD 01/15/25 13:20:
I personally performed a history and physical exam of the patient and discussed management with the resident. I reviewed the resident's note and agree with the documented findings and plan of care HPI/CC.
I personally performed a history and physical exam of the patient and discussed management with the resident. I reviewed the resident's note and agree with the documented findings and plan of care HPI/CC with the following additions/corrections:
CC: headache
HPI: Ms Obando is a 74 year old female with history of RA (on a TNFalphaI anakinra, prednisone 5 mg) history obtained by chart review. Patient abruptly developed headache, confusion, chills and vomiting yesterday.
Since arrival here she has been spiking fevers to a Tmax of 102.6 rectally, bp running hypertensive, wbc initially 8.3 now 11.1, hgb 8.7, [id number], L shift is present, na 132 now 136, cr 0.9, lactic acid 1.5, t bili 0.5, ast 18, alt 14, alk phos 71,
procalcitonin <0.05, a random cortisol is pending, UA wih 30-40 WBC/hpf, few bacteria, moderate yeast, covid ag negative, CT head L frontal sinusitis, also hyperostosis frontalis interna, CT a/p mild stercoral colitis and fecal impaction, urine
culture in progress, blood cultures x2 in progress, influenza screen negative, patient is currently on vancomycin, cefepime, ampicillin, acyclovir also plavix. ID is consulted for assistance with management. She is currently oriented to person
only not place or time. Her responses to questions are not consistently reliable. She is not following one step commands
Physical Exam
General: No Apparent Distress
HENT: some difficulty flexing the neck; no tenderness over the sinuses
Respiratory: Clear to auscultation bilaterally
Cardiac: S1/S2 and Regular Rhythm; No Murmur, Rub, Gallop or Peripheral Edema
GI: Soft, Non Tender, Non Distended and Normal Bowel Sounds
Genito-urinary: no suprapubic tenderness
Musculoskeletal: No Clubbing, No Cyanosis and No Edema
Skin: Warm and Dry; No Rash
Neuro: Awake, Oriented to person only; not following one step commands,
Psych: Calm
Labs reviewed
A&P
Encephalitis/meningitis
Immunocompromised Host
- proceed with LP for cell count, culture, protein, glucose and meningitis panel
- blood cultures x2 in progress
- urine culture in progress
- procalcitonin negative and CT a/p most likely bibasilar atelectasis
- continue vancomycin, ampicillin, start ceftriaxone stop cefepime, continue acycylovir
- add dexamethasone 0.15 mg/kg iv q6 hr
AW
Original Note:
Consultation
-
Date/Time Consultation Requested: 01/15/2025 at 3 AM
Date/Time Consultation Performed: 01/15/2025 at 9:30 AM
Requesting Provider: Fidelia Bell
Performing Provider: Vaughn Torres
Chief Complaint / Past History
Chief Complaint
Confusion with headache
History of Present Illness
Patient is a 74-year-old female with a history of CVA on Plavix, immunocompromised status due to anakinra use for rheumatoid arthritis, insulin-dependent diabetes mellitus, right shoulder arthritis status post antibiotic spacer in November, who
presented to the emergency department for evaluation of confusion.� She was brought in via EMS.� She was unable to provide any significant history and history had to be obtained from her at the bedside.� Patient was in her normal state of
health up until the morning of her presentation when she woke up and complained of a headache and started to have chills.� She took Tylenol and went to sleep.� Later on when she woke up she was confused and unable to answer questions coherently.� On
presentation she was unable to answer anything or provide a review of systems.� Her family stated that she did not have any recent urinary tract infections and had not been on any recent antibiotics.� She did not have any diarrhea, nausea,
vomiting.� Her only complaint in the emergency department was having a dry mouth and being thirsty.� In the emergency department she was hypotensive with a blood pressure of 96/49, pulse of 105, tachypnea with a respiratory rate of 33, and was
febrile with a temperature of 102.5.� Her oxygen saturation was 92% on room air.� Her WBCs were 8.3, hemoglobin 8.7, platelets were 136.� Chemistry panel was unremarkable except for an elevated glucose of 230.� Lactic acid was elevated at 2.7.�
Urine analysis was 3+ ketones, 2+ occult blood reflex, 1+ leukocyte esterase, 30-40 urine WBCs, few bacteria, moderate yeast, 2+ glucose, 3+ albumin, but the urine catch was contaminated with 26-30 squamous epithelial cells.� Urine culture pending.�
She was negative for COVID and flu.� Chest x-ray was positive for moderate airspace opacity of the posterior basilar left lower lobe with possibility of left lower lobe pneumonia or scarring and subsegmental atelectasis.� CT of the head was positive
for moderate left acute frontal sinusitis.� CT of the abdomen and pelvis was positive for mild acute sterile coral colitis and fecal impaction in the rectum.� The patient was given multiple boluses of normal saline to maintain hemodynamics.� Blood
cultures x 2 were drawn.� Patient was started on cefepime 2g IV and vancomycin 2g �IV. �Patient was admitted for encephalopathy secondary to sepsis with unclear source.
Past History
Additional Past Medical History:
CVA on Plavix
Essential hypertension
Hyperlipidemia
Insulin-dependent diabetes mellitus
Immunocompromise status
Rheumatoid arthritis
Right shoulder arthritis status post antibiotic spacer
Nonalcoholic fatty liver disease
Anemia
Hepatitis C
Osteoporosis
Additional Past Surgical History:
Right shoulder antibiotic spacer
C-sections 1977, 1978, 1979
Cyst removal on right middle finger
Left shoulder replacement on 02/26
Cataract surgery of both eyes
Allergy History:
cefaclor Allergy (Verified 01/14/25 17:19)
tolerating cefepime 04/14/22
ciprofloxacin Allergy (Verified 01/14/25 17:19)
Rash
clindamycin Allergy (Verified 01/14/25 17:19)
Rash
doxycycline Allergy (Verified 01/14/25 17:19)
Rash
erythromycin base Allergy (Verified 01/14/25 17:19)
Rash
melatonin Allergy (Verified 01/14/25 17:19)
Pharmacy to Review
Sulfa (Sulfonamide Antibiotics) Allergy (Verified 01/14/25 17:19)
Rash
vancomycin Allergy (Verified 01/14/25 17:19)
Rash
'all antibx except for keflex&PCN' Allergy (Uncoded 01/14/25 17:19)
Unknown
Current Antibiotics:
Allergies
Allergy/AdvReac Type Severity Reaction Status Date / Time
cefaclor Allergy tolerating Verified 01/14/25 17:19
cefepime
04/14/22
ciprofloxacin Allergy Rash Verified 01/14/25 17:19
clindamycin Allergy Rash Verified 01/14/25 17:19
doxycycline Allergy Rash Verified 01/14/25 17:19
erythromycin base Allergy Rash Verified 01/14/25 17:19
melatonin Allergy Pharmacy Verified 01/14/25 17:19
to Review
Sulfa (Sulfonamide Allergy Rash Verified 01/14/25 17:19
Antibiotics)
vancomycin Allergy Rash Verified 01/14/25 17:19
'all antibx except for Allergy Unknown Uncoded 01/14/25 17:19
keflex&PCN'
Home Medications
cholecalciferol (vitamin D3) 25 mcg (1,000 unit) tablet 25 mcg PO DAILY #90 tabs 05/15/22
clopidogrel 75 mg tablet 75 mg PO DAILY #90 tabs 05/15/22
escitalopram oxalate 5 mg tablet 10 mg (2 x 5 mg) PO DAILY #90 tabs 05/15/22
famotidine 40 mg tablet 40 mg PO DAILY #90 tabs 05/15/22
losartan 25 mg tablet 25 mg PO DAILY #90 tabs 05/15/22
metformin 500 mg tablet 500 mg PO BID@0800,1700 #180 tabs 05/15/22
tramadol 50 mg tablet 50 mg PO Q6HPRN PRN severe pain #20 tabs 05/15/22
anakinra 100 mg/0.67 mL subcutaneous syringe (Kineret) 100 mg SC DAILY 01/14/25
atorvastatin 80 mg tablet 40 mg PO QPM 01/14/25
cranberry fruit concentrate 250 mg chewable tablet (Azo Cranberry) 250 mg PO TID 01/14/25
glucosamine sulf dipot chlr,msm,chond 550 mg-C 30 mg-heather 1 mg capsule (Glucosamine Chondroitin) See Rx Instructions .Route .COMPLEX 01/14/25
insulin aspart U-100 100 unit/mL (3 mL) subcutaneous pen (Novolog FlexPen U-100 Insulin aspart) 2 sliding scale dose SC DIRECTED 01/14/25
insulin glargine 100 unit/mL (3 mL) subcutaneous pen (Lantus Solostar U-100 Insulin) 18 unit SC DAILY 01/14/25
prednisone 5 mg tablet 5 mg PO DAILY 01/14/25
vitamin B12 1,000 mcg-folic acid 400 mcg sublingual tablet 1,000 tab sublingual DAILY 01/14/25
acetaminophen 500 mg tablet (Tylenol Extra Strength) 1,000 mg PO Q6HPRN PRN mild pain 01/15/25
metoprolol succinate 25 mg tablet,extended release 24 hr (Toprol XL) 12.5 mg PO BID Heart Disease/Condition 01/15/25
Social History
Tobacco: Non-Smoker
Alcohol: Occasional
Drug: None
Personal:
Living: With Family
Family History
Family History: Not Pertinent
Review of Systems
Review of Systems
General: Other (Unable to obtain due to patient acuity)
Vital Signs
Temp Pulse Resp BP Pulse Ox
99.2 F 116 29 134/67 97
01/15/25 08:27 01/15/25 09:30 01/15/25 09:30 01/15/25 09:00 01/15/25 09:30
Physical Exam
Physical Exam
Constitutional: Well Developed and Obese
Head: Normocephalic
Pharynx: Benign
Cardiovascular: S1/S2; Negative Murmur, Rub or Gallop
Pulmonary: Other (Diminished breath sounds bilaterally in both lung maguire)
Gastrointestinal: Soft, Non Tender, Non Distended, Normal Bowel Sounds, No Rebound and No Guarding
Genito-Urinary: Tapia and Clear Urine
Skin: Warm and Dry; Negative Rash or Jaundice
Neurological: Awake and Other (Altered mental status-patient unable to answer questions)
Psychological: Confused
Lab / Diagnostic Study Results
01/15/25 08:56
01/15/25 08:56
Abs Immat Gran (auto) 0.0 10^3/uL (0-0.05) 01/14/25 17:22
Absolute Neuts (auto) 7.7 10^3/uL (1.4-6.5) H 01/14/25 17:22
Absolute Lymphs (auto) 0.5 10^3/uL (1.2-3.4) L 01/14/25 17:22
Absolute Monos (auto) 0.1 10^3/uL (0.1-0.6) 01/14/25 17:22
Absolute Basos (auto) 0.0 10^3/uL (0-0.2) 01/14/25 17:22
Immature Gran % 0.5 % (0-0.5) 01/14/25 17:22
Neutrophils % 91.7 % (42.2-75.2) H 01/14/25 17:22
Lymphocytes % 5.6 % (20.5-51.1) L 01/14/25 17:22
Monocytes % 1.7 % (1.7-9.3) 01/14/25 17:22
Eosinophils % 0.0 % (0-6) 01/14/25 17:22
Basophils % 0.5 % (0-2) 01/14/25 17:22
Lactic Acid 1.5 mmol/L (0.7-2.0) 01/15/25 00:27
Procalcitonin Cancelled 01/15/25 08:56
Ur Squamous Epith Cells 26-30 /LPF (Few) 01/14/25 17:22
Microbiology Results
Micro:
01/15/25 08:27 Nasal Screen MRSA (PCR) - Pending
Nose
01/14/25 19:46 Blood Culture - Pending
Blood/Venous
01/14/25 17:51 Blood Culture - Pending
Blood/Venous
01/14/25 17:51 Influenza Types A & B (TERRI) - Final
Nasal Swab Negative for Influenza A & B, NAAT
Negative results must be combined with clinical observations
and patient history.
Nucleic Acid Amplification test (NAAT)performed on the
[employer] platform.
01/14/25 17:22 Urine Culture - Pending
Urine
Assessment / Plan
- Encephalopathy secondary to sepsis with unclear source:
- Immunocompromised status secondary to IL�1 medication for rheumatoid arthritis:
Possible pneumonia seen on chest x-ray but cannot rule out atelectasis
Patient presented with headache and altered mental status -possible meningitis
History of right shoulder arthrodesis status post antibiotic spacer in November
Blood cultures x 2 pending
Urine culture pending
Interventional radiology consulted to obtain CSF meningitis panel, culture, protein, glucose, and cell count
Discontinue IV cefepime
Initiated ceftriaxone 2 g every 12 hours and dexamethasone 10 mg IV every 6 hours
Continue vancomycin 1500 mg every 24 hours, ampicillin 2g IV every 4 hours, and acyclovir 850 mg IV every 8 hours
[2025-01-15 09:31] LABS: Hematocrit 30.9 % (37.0-47.0); Hemoglobin 9.9 g/dL (12.0-16.0); Mean Corp Hgb Conc. 32.0 g/dL (33.0-37.0); Mean Corpuscular Volume 93.6 fL (81.0-99.0); Platelet Count 167 10^3/uL (130-400); Red Cell Dist. Width 14.4 % (11.5-14.5)
[2025-01-15 09:34] LABS: ALT (SGPT) 14 U/L (0-35); AST (SGOT) 19 U/L (14-36); Albumin 3.0 g/dl (3.5-5.0); Alkaline Phosphatase 75 U/L (38-126); Blood Urea Nitrogen 18 mg/dl (7-17); Calcium 8.3 mg/dl (8.4-10.2); Carbon Dioxide 16 mmol/L (22-30); Chloride 109 mmol/L (98-107); Estimated Creatinine Clearance 60 ml/min; Glucose 232 mg/dl (70-99); Iron 31 ug/dl (37-170); Potassium 4.2 mmol/L (3.5-5.1); Sodium 136 mmol/L (135-145); Total Protein 5.3 g/dl (6.3-8.2); eGFR > 60.00
[2025-01-15 09:45] LABS: Total Iron Binding Capacity 187 ug/dl (265-497)
[2025-01-15] MEDS: MAXIPIME 1000 MG IV (09:54)
[2025-01-15] MEDS: STERILE WATER FOR INJECTION 10 ML IV (09:55)
[2025-01-15 10:06] LABS: Cortisol, Random 36.8 ug/dl
[2025-01-15 10:10] LABS: Ferritin 324.0 ng/ml (11.1-264.0)
[2025-01-15 10:41] LABS: Folate 11.1 ng/ml (2.76-20); Vitamin B12 794 pg/ml (239-931)
[2025-01-15 12:01] LABS: INR 1.00; PT 13.5 Sec (11.4-14.6)
[2025-01-15 12:09] LABS: Glucose - Point of Care 219 mg/dl (70-99)
[2025-01-15] MEDS: NOVOLOG FLEXPEN-LOW RESISTANCE 2 UNITS SC (12:56)
--- NOTE | 2025-01-15 13:35 | PHA.VAN.FU ---
Addendum entered and electronically signed by Destiny Scott RPH 01/15/25 13:44:
Correction: remains day # 1
Original Note:
Vancomycin Assessment / Plan
- Assessment
Renal Function: Stable
Concomitant Antimicrobials: ceftriaxone, ampicillin, acyclovir
- Dosing Plan
Continue: Vanc 1500mg Q24H infused over 3 hours
Dosing Comments: adjust administration times to start 01/16 600
- Monitoring Plan
No level(s) ordered at this time: consider levels in next few days
- Follow Up
Pharmacy will continue to follow.
Vancomycin Follow UP
- -
Patient Age: 74
Patient Sex: Female
Vancomycin Day #: 2
Indication: Pulmonary/Respiratory
Requesting Provider: Lee Ann Bell / Dr. Quarles
Pertinent Antimicrobial Allergies:
cefaclor - tolerated cefepime
ciprofloxacin - rash
clindamycin - rash
doxycycline - rash
erythromycin - rash
sulfonamide antibiotics - rash
vancomycin - rash
Height / Weight:
Height 5 ft 5 in
Actual Weight 84.822 kg
Pertinent Past Medical History: BMI ~31, RA (anakinra, prednisone), DM
- Vital Signs / Lab Results
Temp Pulse Resp BP Pulse Ox
100 F 113 28 131/102 99
01/15/25 12:24 01/15/25 12:24 01/15/25 12:24 01/15/25 12:24 01/15/25 12:24
Lab Results - Hematology
01/14/25 01/15/25
17:22 08:56
WBC 8.3 11.1 H
Lab Results - Chemistry
01/14/25 01/14/25 01/15/25
17:22 19:46 08:56
BUN Cancelled 19 H 18 H
Creatinine Cancelled 0.9 0.9
Estimated Creat Clear Cancelled 60 60
Albumin Cancelled 3.2 L 3.0 L
01/14/25 01/15/25
17:22 00:27
Lactic Acid 2.9 H 1.5
Lab Results - Urine
01/14/25
17:22
Urine Nitrite (Reflex) Negative
Leukocyte Esterase Rfl 1+ A
Ur Squamous Epith Cells 26-30
Microbiology Results
01/14/25 17:22 Urine Culture - Final
Urine
01/15/25 08:27 Nasal Screen MRSA (PCR) - Final
Nose MRSA not detected - performed by PCR methodology.
01/14/25 17:51 Influenza Types A & B (TERRI) - Final
Nasal Swab Negative for Influenza A & B, NAAT
Negative results must be combined with clinical observations
and patient history.
Nucleic Acid Amplification test (NAAT)performed on the
[employer] platform.
--- NOTE | 2025-01-15 13:36 | PN.DE.MGMTRT ---
Insulin Management
- -
01/15/2025: Diabetes Management Consult
74 year old female who abruptly developed headache, confusion, chills and vomiting yesterday
PMH: RA (on a TNFalphaI anakinra, prednisone 5 mg)
Since arrival here she has been spiking fevers to a Tmax of 102.6 rectally, bp running hypertensive, wbc initially 8.3 now 11.1, hgb 8.7, [id number], L shift is present, na 132 now 136, cr 0.9, lactic acid 1.5, t bili 0.5, ast 18, alt 14, alk phos 71,
procalcitonin <0.05, a random cortisol is pending, UA wih 30-40 WBC/hpf, few bacteria, moderate yeast, covid ag negative, CT head L frontal sinusitis, also hyperostosis frontalis interna, CT a/p mild stercoral colitis and fecal impaction,
Pt awake, alert, oriented to person only not place or time, she is able to follow one step commands but unable to discuss diabetes hx or OP regimen.
Spoke to pt's and son- report pt was taking NovoLog 2units AC, Lantus 24 units daily in AM and Metformin 500mg BID. Pt uses CGM- Dexcom G7 and routinely sees her PCP Dr. Wilson for diabetes care.
Glucose on admission was 250, A1C 6.9%, Cr 0.7, eGFR >60. Pt is currently NPO.
Will start her home regimen; Lantus at reduced dose of 10 units in AM while NPO- may adjust dose if necessary
Start low corrective Q6 hrs while NPO. Resume NovoLog 2 units AC and change corrective to AC once diet has been started
Discussed with Nurse. Will cont to follow
Diabetes History
- -
Type of Diabetes: 2 requiring insulin
Pre-Admission Diabetes Regimen
01/14/25 01/14/25 01/15/25
17:22 19:46 08:56
Creatinine Cancelled 0.9 0.9
Insulin Pump Settings
IP Diabetes Regimen
01/14/25 01/14/25 01/14/25
17:22 19:46 23:18
Glucose Cancelled 230 H
POC Glucose 265 H
01/15/25 01/15/25 01/15/25
05:39 08:56 12:08
Glucose 232 H
POC Glucose 206 H 219 H
Patient Education
[2025-01-15] MEDS: LR IV ×2 (13:50→21:31)
--- NOTE | 2025-01-15 13:50 | TRANSFER ---
Patient transferred from ED18 via stretcher directly to [facility] accompanied by RN and PCT. Report called to [facility]. Report called to IMU. [facility] to take patient to 3346 post procedure. Family aware at bedside and sent to waiting area at this time.
[2025-01-15 16:12] LABS: CSF Color Red
--- NOTE | 2025-01-15 16:13 | CON.NEURO ---
Neuro Assessment/Plan
Assessment
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
Differential diagnosis includes meningitis/encephalitis, toxic metabolic encephalopathy, status epilepticus and less likely acute ischemic stroke
Plan
Appreciate interventional radiology performance of lumbar puncture
Check EEG. If unable to perform routine EEG testing, check Ceribell device for status epilepticus
Would not yet initiate antiseizure medications
Continue clopidogrel if patient is able to take same, otherwise provide aspirin 300 mg per rectum if unable to take by mouth
Continue atorvastatin if patient is able to take by mouth
Goal of normoglycemia
Goal of normotension
Attempt to reduce exposure to sedative agents
Antibiotic coverage as per primary service and infectious disease
consider stress dose steroids
Total Critical Care Time= 40 minutes.
The neurological system is affected and the action required by me to prevent further deterioration or potential was control over the item listed first in the Impressions and Recommendations section of this note.
I was present and personally examined the patient. I discussed patient care with other professional health care providers.
Also discussed with family.
We will follow
Consultation
Order
Date of Consultation: 01/15/25
Requesting Provider: Hospitalist
Reason for Consult: Change in mental status
Subjective/Objective
Subjective Data
Date of Service: January 15, 2025
Right handed
Patient presented to this [facility] emergency department 1 day ago with acute onset of change in mental status. Patient reportedly was in her usual state of health until development of a headache and emesis. The patient also became confused and
because of the confusion EMS was contacted with the patient being brought to this hospital. The patient recently had a urinary tract infection and discontinued antibiotic several days prior to presentation.
The patient is described as having a prior episode which was similar at which time the patient was described as having a stroke. Patient was self is unable to provide her own medical history.
From my consultation performed April 15, 2022:
'Patient was recently hospitalized in the middle of March 2022 due to new onset change in mental status. She was then found to have urinary tract infection which after remediation, resolved the patient's confusion. The patient underwent CAT scan
imaging of the head at that time which failed to demonstrate a structural abnormality.
The day prior to transfer to this hospital from an outside hospital on April 13, 2022 the patient experienced a new change in mental status with left-sided facial droop. The patient was found to have a systolic blood pressure in the 220s
according to medical records, and suggested to have sepsis, DKA, and respiratory distress leading to intubation. The patient was transferred to this hospital the following day to allow for cardiac catheterization. After cardiac catheterization,
the patient had a stent implant.
There are no known modifying factors for the patient's prior weakness.
Reportedly, 2 CAT scans of the head and CT angiograms were performed at the outside hospital notable which demonstrated significant concerns.'
Subsequently, the patient was found to have a right frontal centrum semiovale stroke and subsequently developed status epilepticus during that hospitalization.
Objective Data
Vital Signs
Temp Pulse Resp BP Pulse Ox
36.8 C 102 22 153/45 98
01/15/25 13:55 01/15/25 15:25 01/15/25 15:25 01/15/25 15:25 01/15/25 15:11
Lab Results
01/15/25 08:56
01/15/25 08:56
PT 13.5 Sec (11.4-14.6) 01/15/25 11:45
INR 1.00 01/15/25 11:45
Sodium 136 mmol/L (135-145) 01/15/25 08:56
Potassium 4.2 mmol/L (3.5-5.1) 01/15/25 08:56
BUN 18 mg/dl (7-17) H 01/15/25 08:56
Glucose 232 mg/dl (70-99) H 01/15/25 08:56
Calcium 8.3 mg/dl (8.4-10.2) L 01/15/25 08:56
Vitamin B12 794 pg/ml (239-931) 01/15/25 08:56
Patient Allergies
cefaclor Allergy (Verified 01/14/25 17:19)
tolerating cefepime 04/14/22
ciprofloxacin Allergy (Verified 01/14/25 17:19)
Rash
clindamycin Allergy (Verified 01/14/25 17:19)
Rash
doxycycline Allergy (Verified 01/14/25 17:19)
Rash
erythromycin base Allergy (Verified 01/14/25 17:19)
Rash
melatonin Allergy (Verified 01/14/25 17:19)
Pharmacy to Review
Sulfa (Sulfonamide Antibiotics) Allergy (Verified 01/14/25 17:19)
Rash
vancomycin Allergy (Verified 01/14/25 17:19)
Rash
'all antibx except for keflex&PCN' Allergy (Uncoded 01/14/25 17:19)
Unknown
Review of Systems
-
Unable to obtain full review of systems at this time due to: Lethargy
History Source: Patient
All other systems: Reviewed and negative
Physical Exam
-
General: No Apparent Distress, Obese, Appears Stated Age and Other (Patient frequently attempting to climb out of bed)
Eyes: Round OU, [place] Conjunctivae and No Ptosis; Negative Able to visualize OU
HEENT: Anicteric and Moist Mucous Membranes
Neck: Full Range of Motion
Respiratory: No Dyspnea
Cardiac: No JVD
GI: Non-distended
Skin: Unremarkable
Extremities: No Clubbing, No Cyanosis and No Edema
Psych: Unable to Assess
Extended Neurological Exam
Mood & Affect: Other (Impulsive)
Attention Span & Concentration: Awake, Unable to Perform 2 Step Request and Other (Unable to perform most single step requests); Negative Alert or Interactive
Memory: Unable to Assess
Tremor: Hand Tremor Absent and Head Tremor Absent
Involuntary Movement: None
Speech: Severely Reduced Output; Negative Dysarthric
Cranial Nerve II: Left Eye: Pupillary Reactivity Unremarkable, Pupillary Size Unremarkable and Other (Blinks to threat)
Cranial Nerve II: Right Eye: Pupillary Reactivity Unremarkable, Pupillary Size Unremarkable and Other (Blinks to threat)
Cranial Nerves III, IV, : Extraocular Movement: Other (Gaze preference conjugately to the right, at times is able to gaze to the left)
Cranial Nerve V: Facial Sensation: Unable to Assess
Cranial Nerve VII: Facial Symmetry: Normal Facial Symmetry
Cranial Nerve VIII: Hearing: Unremarkable Hearing to Normal Conversational Volume
Cranial Nerves IX, X: Palate Movement: Palate Elevation Symmetric
Cranial Nerve XI: Shoulder Shrug: Unable to Assess
Cranial Nerve XII: Tongue Protusion: Unable to Assess
Muscle Strength, Overall: Spontaneously Moves (All extremities, reduced movement on the left side)
Muscle Bulk & Tone: Bulk Unremarkable and Tone Unremarkable
Pronator Drift: Unable to Assess
Deep Tendon Reflexes: Trace Throughout
Cold Sensation: Unable to Assess
Vibration Sensation: Unable to Assess
Touch Sensation: Withdrawal to Pain
Coordination: Unable to Assess
Babinski Sign: Absent Bilaterally
Gait & Station: Unable to Assess
Data Reviewed
-
EEG: Ordered
Labs: Report Reviewed
Reviewed with: Physician, Patient and Family
Old Records: Summarized
Medications
-
Active Medications
Generic Name Dose Route Start Last Admin
Trade Name Freq PRN Reason Stop Dose Admin
Acetaminophen 650 mg 01/15/25 06:00 01/15/25 13:35
Acetaminophen 650 Mg Rectal Suppository RECTAL 02/12/25 05:59 650 mg
Q4HPRN PRN Administration
fever
Acetaminophen 650 mg 01/15/25 06:00
Acetaminophen 325 Mg Tablet PO 02/12/25 05:59
Q4HPRN PRN
mild pain/ELENA/temp>100.5
Albuterol/Ipratropium 3 ml 01/15/25 01:50
Ipratropium 0.5/Albuterol 3 Mg (3 Ml Ampul) INH
R Q4HPRN PRN
sob/wheeze
Protocol
Ceftriaxone Sodium 2,000 mg 01/15/25 14:00
Ceftriaxone 2,000 Mg/20 Ml Vial IV
Q12H DEON
Cholecalciferol 25 mcg 01/15/25 08:00 01/15/25 08:12
Cholecalciferol (Vitamin D3) 25 Mcg Tablet (1,000 Units) PO 02/12/25 07:59 Not Given
DAILY DEON
Clopidogrel Bisulfate 75 mg 01/15/25 08:00 01/15/25 08:12
Clopidogrel 75 Mg Tablet PO 02/12/25 07:59 Not Given
On Hold: 01/15/25 12:17 DAILY DEON
Dexamethasone Sodium Phosphate 10 mg 01/15/25 14:00
Dexamethasone (4 Mg/Ml) 20 Mg/5 Ml Vial IV 01/19/25 08:01
Q6H DEON
Enoxaparin Sodium 40 mg 01/15/25 18:00
Enoxaparin Sodium 40 Mg/0.4 Ml Syringe SC 02/12/25 17:59
QPM DEON
Escitalopram Oxalate 10 mg 01/15/25 08:00 01/15/25 08:12
Escitalopram 5 Mg Tablet PO 02/12/25 07:59 Not Given
DAILY DEON
Famotidine 40 mg 01/15/25 08:00 01/15/25 08:12
Famotidine 20 Mg Tablet PO 02/12/25 07:59 Not Given
DAILY DEON
Lactated Ringer's 1,000 mls @ 100 mls/hr 01/15/25 01:50 01/15/25 13:50
Lr IV Not Given
.Q10H DEON
Acyclovir Sodium 850 mg/ 267 mls @ 250 mls/hr 01/15/25 16:00
Sodium Chloride IV 01/25/25 15:59
Q8H DEON
Ampicillin Sodium 2,000 mg/ 108 mls @ 108 mls/hr 01/15/25 05:00 01/15/25 12:56
Sodium Chloride IV 108 mls
Q4H DEON Administration
Vancomycin HCl 1,500 mg/ 530 mls @ 176.667 mls/hr 01/16/25 06:00
Sodium Chloride IV
Q24H DEON
Protocol
Insulin Aspart 0 units 01/15/25 12:00 01/15/25 12:56
Insulin Aspart Low Resistance 300 Units/3 Ml Pen.Injctr SC 02/12/25 11:59 2 units
Q6 DEON Administration
Protocol
Methocarbamol 500 mg 01/15/25 08:00 01/15/25 08:12
Methocarbamol 500 Mg Tablet PO 02/12/25 07:59 Not Given
TID DEON
Methocarbamol 500 mg 01/15/25 01:50
Methocarbamol 500 Mg Tablet PO 02/12/25 01:49
TIDPRN PRN
muscle spasam
Metoprolol Succinate 12.5 mg 01/15/25 08:00 01/15/25 08:12
Metoprolol 12.5 Mg Extended Release Dose (1/2 Of 25 Mg Xl Tablet) PO 02/12/25 07:59 Not Given
BID DEON
Prednisone 5 mg 01/15/25 08:00 01/15/25 08:12
Prednisone 5 Mg Tablet PO 02/12/25 07:59 Not Given
DAILY DEON
Sodium Chloride 0 flush 01/15/25 04:00
Sodium Chloride 0.9% (Flush) Syringe IV 02/12/25 03:59
PER PROTOCOL DEON
Sodium Chloride 0 flush 01/15/25 15:00
0.9% Nacl Flush If Lactated Ringers Ivf Ordered IV 02/12/25 14:59
QID@0155,0205,1355,1405 DEON
Sterile Water 20 ml 01/15/25 14:00
Sterile Water For Injection 20 Ml Vial IV 02/12/25 13:59
Q12H DEON
Tramadol HCl 50 mg 01/15/25 01:50
Tramadol Hcl 50 Mg Tablet PO 02/12/25 01:49
Q6HPRN PRN
severe pain
Home Medications
�Medication �Instructions �Recorded
cholecalciferol (vitamin D3) 25 25 mcg PO DAILY #90 tabs 05/15/22
mcg (1,000 unit) tablet
clopidogrel 75 mg tablet 75 mg PO DAILY #90 tabs 05/15/22
escitalopram oxalate 5 mg tablet 10 mg (2 x 5 mg) PO DAILY #90 tabs 05/15/22
famotidine 40 mg tablet 40 mg PO DAILY #90 tabs 05/15/22
losartan 25 mg tablet 25 mg PO DAILY #90 tabs 05/15/22
metformin 500 mg tablet 500 mg PO BID@0800,1700 #180 tabs 05/15/22
tramadol 50 mg tablet 50 mg PO Q6HPRN PRN severe pain 05/15/22
#20 tabs
anakinra 100 mg/0.67 mL 100 mg SC DAILY 01/14/25
subcutaneous syringe (Kineret)
atorvastatin 80 mg tablet 40 mg PO QPM 01/14/25
cranberry fruit concentrate 250 mg 250 mg PO TID 01/14/25
chewable tablet (Azo Cranberry)
glucosamine sulf dipot See Rx Instructions .Route .COMPLEX 01/14/25
chlr,msm,chond 550 mg-C 30 mg-heather
1 mg capsule (Glucosamine
Chondroitin)
insulin aspart U-100 100 unit/mL 2 sliding scale dose SC DIRECTED 01/14/25
(3 mL) subcutaneous pen (Novolog
FlexPen U-100 Insulin aspart)
insulin glargine 100 unit/mL (3 18 unit SC DAILY 01/14/25
mL) subcutaneous pen (Lantus
Solostar U-100 Insulin)
prednisone 5 mg tablet 5 mg PO DAILY 01/14/25
vitamin B12 1,000 mcg-folic acid 1,000 tab sublingual DAILY 01/14/25
400 mcg sublingual tablet
acetaminophen 500 mg tablet 1,000 mg PO Q6HPRN PRN mild pain 01/15/25
(Tylenol Extra Strength)
metoprolol succinate 25 mg 12.5 mg PO BID Heart 01/15/25
tablet,extended release 24 hr Disease/Condition
(Toprol XL)
[2025-01-15 16:15] LABS: Red Cell Count/CSF 5291 mm^3
[2025-01-15 16:24] LABS: White Cell Count/CSF 18 mm^3 (0-5)
[2025-01-15] MEDS: FLUSH (NSS) IV (17:00)
[2025-01-15] MEDS: STERILE WATER FOR INJECTION 20 ML IV (17:10)
[2025-01-15] MEDS: ROCEPHIN 2000 MG IV (17:10)
[2025-01-15 17:12] LABS: Spinal Fluid Macrophages 1 %
[2025-01-15 17:13] LABS: Spinal Fluid Granulocytes 41 %; Spinal Fluid Lymphocytes 58 %
[2025-01-15] MEDS: DECADRON 10 MG IV ×2 (17:14→21:33)
[2025-01-15] MEDS: LOVENOX 40 MG SC (17:19)
--- NOTE | 2025-01-15 17:32 | CM ---
Patient seen at bedside in ED earlier today. Patient lives with his in a 2 story home, with cane and transport wheelchair but no other DME per patient . Patient stays on the same floor and currently is confused and not responding to
physician. Patient uses [facility] in [place] and her PCP is From [facility]. Patient Niharika Wilson. Patient Son Dieudonne [phone] and sister Korin [phone]. Patient has not had VN or SNF previously per family. CM will continue to follow for
discharge planning needs.
Plan; home with Family; watch for VN vs SNF needs.
--- NOTE | 2025-01-15 17:33 | PTCARENOTE ---
Pt received from [facility] via stretcher. Aox1, restless, confused. Bed alarm in place. Family at bedside. Assessment as documented.
[2025-01-15] MEDS: VIBRAMYCIN 260 MG IV (18:23)
[2025-01-15 18:25] LABS: Glucose - Point of Care 183 mg/dl (70-99)
[2025-01-15] MEDS: NOVOLOG FLEXPEN-LOW RESISTANCE 1 UNITS SC (18:27)
[2025-01-15] MEDS: LOPRESSOR 2.5 MG IV (20:00)
[2025-01-15] MEDS: MORPHINE SULFATE 1 MG IV (22:46)
[2025-01-15] MEDS: LOPRESSOR 5 MG IV (23:04)
[2025-01-15 23:54] LABS: Glucose - Point of Care 236 mg/dl (70-99)
[2025-01-16] VITALS (16 sets, daily range): BP systolic 140–180; BP diastolic 66–128; BMI 30.6
[2025-01-16] MEDS: NOVOLOG FLEXPEN-LOW RESISTANCE 2 UNITS SC ×2 (00:19→11:43)
[2025-01-16] MEDS: ROCEPHIN 2000 MG IV ×2 (01:28→15:06)
[2025-01-16] MEDS: FLUSH (NSS) 1 FLUSH IV ×3 (01:28→02:31)
[2025-01-16] MEDS: STERILE WATER FOR INJECTION 20 ML IV ×2 (01:29→15:06)
[2025-01-16] MEDS: DECADRON 10 MG IV ×2 (03:03→11:15)
[2025-01-16 04:30] LABS: Hematocrit 33.0 % (37.0-47.0); Hemoglobin 10.4 g/dL (12.0-16.0); Mean Corp Hgb Conc. 31.5 g/dL (33.0-37.0); Mean Corpuscular Volume 95.7 fL (81.0-99.0); Platelet Count 175 10^3/uL (130-400); Red Cell Dist. Width 14.3 % (11.5-14.5)
[2025-01-16] MEDS: LR 1000 IV (04:35)
[2025-01-16 04:52] LABS: ALT (SGPT) 16 U/L (0-35); AST (SGOT) 24 U/L (14-36); Albumin 3.2 g/dl (3.5-5.0); Alkaline Phosphatase 67 U/L (38-126); Blood Urea Nitrogen 21 mg/dl (7-17); Calcium 8.5 mg/dl (8.4-10.2); Carbon Dioxide 15 mmol/L (22-30); Chloride 111 mmol/L (98-107); Estimated Creatinine Clearance 67 ml/min; Glucose 279 mg/dl (70-99); Potassium 4.1 mmol/L (3.5-5.1); Sodium 136 mmol/L (135-145); Total Protein 5.8 g/dl (6.3-8.2); eGFR > 60.00
--- NOTE | 2025-01-16 04:55 | SUR.OPER ---
Pt disoriented, confused, restless. IVF maintained. Q2T schedule in place to prevent skin breakdown. Bed alarm in place for pt safety. Care ongoing.
[2025-01-16] MEDS: VIBRAMYCIN 260 MG IV ×2 (05:11→17:16)
[2025-01-16] MEDS: LOPRESSOR 5 MG IV ×2 (05:11→21:16)
[2025-01-16] MEDS: NOVOLOG FLEXPEN-LOW RESISTANCE 3 UNITS SC ×2 (06:28→18:04)
[2025-01-16 06:39] LABS: Glucose - Point of Care 280 mg/dl (70-99)
[2025-01-16] MEDS: NOVOLOG FLEXPEN SC ×3 (09:02→16:21)
--- NOTE | 2025-01-16 09:15 | W.PN.ID1 ---
Date of Service
Date of Service: January 16, 2025
Today's Communication
await MRI brain
Assessment / Plan
Encephalopathy/encephalitis
Fever resolving
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
- Procalcitonin negative
- Bcx's neg to date
- Unsuccessful LP with traumatic tap 1cc fluid: 18WBC, 5291 RBC, 58% lymphocytes, 156 protein, gram stain neg, cx pending
- Serum WNV IgM pending
- For MRI brain
- On empiric ceftriaxone 2g q12, IV acyclovir, doxycycline, and dexamethasone.
- Monitor renal function closely while on IV acyclovir.
Chief Complaint
-: Fever and Other (Change in mental status.)
Subjective / Review of Systems
More alert today. No ELENA. No neck pain.
Able to discuss recent events about her recent shoulder PJI.
Vital Signs / Physical Exam
Vital Signs
Vital Signs
Temp Pulse Resp BP Pulse Ox
98.2 F 95 21 169/82 100
01/16/25 03:00 01/16/25 08:00 01/16/25 08:00 01/16/25 08:00 01/16/25 08:00
Physical Exam
Constitutional: Comfortable
Head: Other (No frontal or maxillary sinus tenderness)
Eyes: Sclera Anicteric
Cardiovascular: Regular Rate and S1/S2
Pulmonary: Clear
Gastrointestinal: Soft, Non Tender, Non Distended and Normal Bowel Sounds
Genito-Urinary: Negative CVA Tenderness
Extremities: Negative Edema
Neurological: Awake, Alert and Oriented (to self, recent shoulder PJI and abx history, not oriented to place); Negative Meningeal Signs (neck supple)
Objective Data
Lab Data
Lab Results
01/16/25 04:17
01/16/25 04:17
PT 13.5 Sec (11.4-14.6) 01/15/25 11:45
INR 1.00 01/15/25 11:45
Estimated Creat Clear 67 ml/min 01/16/25 04:17
Lactic Acid 1.5 mmol/L (0.7-2.0) 01/15/25 00:27
Total Bilirubin 0.5 mg/dl (0.2-1.3) 01/16/25 04:17
AST 24 U/L (14-36) 01/16/25 04:17
ALT 16 U/L (0-35) 01/16/25 04:17
Alkaline Phosphatase 67 U/L (38-126) 01/16/25 04:17
Most recent labs reviewed.
Micro Results:
01/14/25 19:46 Blood Culture - Preliminary
Blood/Venous No Growth in 24 hours- Final report to follow
01/14/25 17:51 Blood Culture - Preliminary
Blood/Venous No Growth in 24 hours- Final report to follow
01/15/25 15:14 CSF Culture - Pending
Csf Gram Stain - Final
01/14/25 17:22 Urine Culture - Final
Urine
01/15/25 08:27 Nasal Screen MRSA (PCR) - Final
Nose MRSA not detected - performed by PCR methodology.
01/14/25 17:51 Influenza Types A & B (TERRI) - Final
Nasal Swab Negative for Influenza A & B, NAAT
Negative results must be combined with clinical observations
and patient history.
Nucleic Acid Amplification test (NAAT)performed on the
[employer] platform.
--- NOTE | 2025-01-16 11:00 | PTCARENOTE ---
Patient challenging stick. R AC IV inserted overnight leaking/non-functional prior to MRI this morning. Removed. R Hand placed by VAT RN. Patient went to MRI, returned with IV non-functional/leaking.
This RN placed L FA IV with ultrasound guidance at bedside. IV ABX administered late due to MRI/no reliable IV Access.
Prior to BRACE MAKER evaluating patient, administered thin liquids and pills in apple sauce (not crushed). Patient tolerated with no evidence of aspiration. However, patient displayed signs of aspiration for BRACE MAKER when BRACE MAKER administered teddy crackers.
Patient to be on Aspiration Risk Hydration Protocol.
[2025-01-16] MEDS: LEXAPRO 10 MG PO (11:13)
[2025-01-16] MEDS: ZOVIRAX INJECTION 267 MG IV ×2 (11:13→17:55)
[2025-01-16] MEDS: PEPCID 40 MG PO (11:14)
[2025-01-16] MEDS: TOPROL XL 12.5 MG PO (11:14)
[2025-01-16] MEDS: METHOCARBAMOL 500 MG PO (11:14)
[2025-01-16] MEDS: DELTASONE 5 MG PO (11:14)
[2025-01-16] MEDS: VITAMIN D3 (cholecalciferol) 25 MCG PO (11:15)
[2025-01-16] MEDS: LANTUS 0.1 UNITS SC (11:22)
[2025-01-16 11:32] LABS: Glucose - Point of Care 245 mg/dl (70-99)
--- NOTE | 2025-01-16 11:49 | W.PN.NEURO.1 ---
Today's Communication / Plan
-
communicated to primary team in person
Neuro Assessment/Plan
Assessment
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
Differential diagnosis includes meningitis/encephalitis and toxic metabolic encephalopathy. MRI was negative for stroke. Seizure is less likely given no seizure acitvity noted.
Plan
Appreciate interventional radiology performance of lumbar puncture
EEG unlikely to be helpful at this time now that she is improving
Continue clopidogrel
Continue atorvastatin
Goal of normoglycemia
Goal of normotension
Attempt to reduce exposure to sedative agents
Antibiotic coverage as per primary service and infectious disease
consider stress dose steroids
The neurological system is affected and the action required by me to prevent further deterioration or potential was control over the item listed first in the Impressions and Recommendations section of this note.
I was present and personally examined the patient. I discussed patient care with other professional health care providers.
Also discussed with family.
We will follow
Subjective/Objective
Subjective Data
Date of Service: January 16, 2025
at bedside. Eliz is awake and alert and able to answer questions. She is still confused to the events that led to her hospitalization. She denies any new complaints. Her says that she has significantly improved since admission but
not at baseline yet.
Objective Data
Vital Signs
Temp Pulse Resp BP Pulse Ox
37.6 C 104 25 147/91 96
01/16/25 07:40 01/16/25 11:14 01/16/25 10:41 01/16/25 11:14 01/16/25 10:41
Lab Results
01/16/25 04:17
01/16/25 04:17
PT 13.5 Sec (11.4-14.6) 01/15/25 11:45
INR 1.00 01/15/25 11:45
Sodium 136 mmol/L (135-145) 01/16/25 04:17
Potassium 4.1 mmol/L (3.5-5.1) 01/16/25 04:17
BUN 21 mg/dl (7-17) H 01/16/25 04:17
Glucose 279 mg/dl (70-99) H 01/16/25 04:17
Calcium 8.5 mg/dl (8.4-10.2) 01/16/25 04:17
Vitamin B12 794 pg/ml (239-931) 01/15/25 08:56
Patient Allergies
cefaclor Allergy (Verified 01/14/25 17:19)
tolerating cefepime 04/14/22
ciprofloxacin Allergy (Verified 01/14/25 17:19)
Rash
clindamycin Allergy (Verified 01/14/25 17:19)
Rash
erythromycin base Allergy (Verified 01/14/25 17:19)
Rash
melatonin Allergy (Verified 01/15/25 17:01)
pt 'spaces out'
Sulfa (Sulfonamide Antibiotics) Allergy (Verified 01/14/25 17:19)
Rash
vancomycin Allergy (Verified 01/14/25 17:19)
Rash
'all antibx except for keflex&PCN' Allergy (Uncoded 01/14/25 17:19)
Unknown
Physical Exam
-
General: Well Developed, Well Nourished and No Apparent Distress
Eyes: Unremarkable
HEENT: Normocephalic and Atraumatic
Skin: Unremarkable
Extremities: No Clubbing
Psych: Unremarkable
Extended Neurological Exam
Mood & Affect: Mood Unremarkable and Affect Unremarkable
Attention Span & Concentration: Awake, Alert, Interactive and Moderate Difficulty with 2 Step Request
Memory: Reduced
Speech: Quality Unremarkable, Quantity Unremarkable and Rate of Production Unremarkable
Cranial Nerves III, IV, : Extraocular Movement: Extraocular Movement Full in all Directions
Cranial Nerve V: Facial Sensation: Intact to Light Touch
Cranial Nerve VII: Facial Symmetry: Normal Facial Symmetry
Cranial Nerve VIII: Hearing: Unremarkable Hearing to Normal Conversational Volume
Cranial Nerves IX, X: Palate Movement: Palate Elevation Symmetric
Cranial Nerve XI: Shoulder Shrug: Unremarkable
Cranial Nerve XII: Tongue Protusion: Midline
Muscle Strength, Overall: Other (4 through out except at L shoulder which is immobile at baseline)
Muscle Bulk & Tone: Bulk Unremarkable and Tone Unremarkable (normal throughout except L shoulder)
Deep Tendon Reflexes: Trace Throughout
Touch Sensation: Unremarkable
Coordination: [id number]-[id number] Testing Unremarkable
Gait & Station: Unable to Assess (poor attention)
Data Reviewed
-
MRI Head: Image Reviewed (no acute stroke. global atrophy. No enchancement)
[2025-01-16] MEDS: LOPRESSOR IV (12:17)
--- NOTE | 2025-01-16 12:58 | W.PN.HOSP.TC ---
Addendum entered and electronically signed by Carissa Coronado MD 01/16/25 14:00:
I saw and evaluated the patient independently. I reviewed and discussed the resident�s note and agree with findings and plan as documented by Dr. Tatum.
GENERAL: well developed, well nourished, obese female in no apparent distress
HEENT: NC/AT--right gaze preference--not tracking, not following commands
HEART: regular rate and rhythm, +S1, +S2, ISHA
LUNGS : clear to auscultation bilaterally
ABDOM: soft, nontender, nondistended, + bowel sounds
EXT: no cyanosis, clubbing, or edema
NEUROLOGIC: not following commands
Sepsis with encephalopathy secondary to unclear source- concern for meningoencephalitis given neuro exam, headache, fever--improving but not at baseline, per nursing, speech has not cleared her for a diet yet--CXR equivocal for PNA and CT
abdomen/pelvis shows more atelectasis rather than PNA--History of right shoulder arthritis s/p abx spacer in November, and finished 6 weeks of ABX on 01/06/25-- CT head is negative--apprec ID, IR consulted for LP (only 1 cc obtained)--follow
cultures--empiric abx for meningitis (IV cefepime, vanco (slowly) and ampicillin + acyclovir) --wean stress dose steroids--NPO/IVF--apprec neuro consult
Acute Anemia on anemia of chronic disease--unclear cause--?dilutional--heme check stool, follow HGB, iron studies more consistent with chronic disease--PPI--transfuse for HGB < 7
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
Essential Hypertension-- hold losartan- continue metoprolol tartrate with hold parameters as able
CVA--held clopidogrel 01/15/25 PM for anticipated lumbar puncture--restarted plavix-- hold atorvastatin while NPO
Rheumatoid arthritis- On prednisone 5 at home. Held- Stress-dose steroids with dexamethasone 10 mg q6h IV--wean to 6 Q6H
DVT Proph - lovenox sq
Code status - Full Code
can down grade from IMU
Family:
Dieudonne (son): [phone]
Korin (daughter): [phone]
Original Note:
Today's Communication/Plan
-
- f/u with ID, neurology, and Diabetes MOLD CHANGER. Trend glucose levels. Follow up with speech therapy
Assessment / Plan
Assessment / Plan
Sepsis with encephalopathy secondary to possible viral source:
- Initial px with altered mental status, AOx1 on neuro exam, headache, and fever on presentation
- Investigations: chest xray shows possible pneumonia but then on CT abdomen pelvis shows more atelectasis, procalcitonin is less than 0.05, so less likely. CT head negative.
- downgraded patient to telemetry
- Spinal tap performed ( only 1 cc fluid obtained) shows CSF wbc of 18, CSF RBC of 5291, Csf cardioplegic 41%, CSF +50%, CSF macrophages 1%, CSF glucose 139, and CSF total protein 156 which points towards a traumatic tap and/or viral cause of
encephalitis. Was not virus IgM antibody pending.
-Blood cultures negative and CSF culture negative
- Infectious disease was consulted and want to continue the patient's empiric ceftriaxone 2 g every 12, IV acyclovir, doxycycline, dexamethasone.
- Change the stress dose of dexamethasone to 6 mg every 6 hours from 10 mg every 6 hours.
- Neurology was also consulted and wants to hold off on EEG, continue her home dose clopidogrel and atorvastatin.
- Brain MRI today shows no acute intracranial abnormalities
- Now that patient is awake alert and oriented, speech therapy consulted and recc continued NPO with sips of water
- PT/OT consulted
Anemia of chronic disease:
- Hemoglobin is 10.4 from 9.9 yesterday.
- guaiac stools
- trend H/H q 24 hr
- ppi daily for now
- type and screen and transfuse for hgb < 7
� Iron studies consistent with anemia of chronic disease in 12/09/2024
Type 2 diabetes mellitus:
-Glucose today is 279
- Diabetic nurse practitioner consulted on 01/15/2025 and continued patient's sliding scale with insulin glargine 10 units and insulin aspart 2 units
- Stress dose steroids adjusted to reflect glucose management control
Essential hypertension:
- hold losartan
- continue metoprolol tartrate with hold parameters
CVA
-Restart clopidogrel and atorvastatin
Rheumatoid arthritis
- On prednisone 5 at home.
- Stress-dose steroids with dexamethasone 6 mg q6h IV
DVT PPX - lovenox sq
Code status - Full Code
Family:
Dieudonne (son): [phone]
Korin (daughter): [phone]
Anticipated Discharge: 24 - 48 hours
Subjective/Interval History
-
Date of Service: January 16, 2025
No acute overnight events.
Patient is more awake, alert, and oriented as compared to previous exam. Complaining of a dry mouth.
Objective Data
-
Labs:
Laboratory Results
01/16/25
04:17
WBC 9.2
Hgb 10.4 L
Hct 33.0 L
Plt Count 175
Sodium 136
Potassium 4.1
Chloride 111 H
Carbon Dioxide 15 L
BUN 21 H
Creatinine 0.8
Glucose 279 H
Calcium 8.5
Total Bilirubin 0.5
AST 24
ALT 16
Alkaline Phosphatase 67
Vital Signs:
Vital Signs
Temp Pulse Resp BP Pulse Ox
99.7 F 104 25 147/91 96
01/16/25 07:40 01/16/25 11:14 01/16/25 10:41 01/16/25 11:14 01/16/25 10:41
I&O
01/15/25 01/16/25 01/17/25
06:59 06:59 06:59
Output Total 500 / 500 150 / 150
Balance -500 / -500 -150 / -150
Review of Systems
-
History Source: Patient
All other systems: Reviewed and negative
Physical Exam
-
General: Well Developed, Well Nourished and Conversant
HEENT: Normocephalic, Atraumatic, Anicteric and No Ptosis; Negative Moist Mucous Membranes
Respiratory: Crackles
Cardiac: Regular Rhythm, S1/S2 and Murmur (systolic murmur)
GI: Soft, Nontender, Nondistended and Normal Bowel Sounds
Musculoskeletal: No Clubbing, No Cyanosis and No Edema
Skin: Warm and Dry
Neuro: AO x 3
Psych: Calm
Data Reviewed
-
Labs: Labs Reviewed by me and Discussed with Physician
--- NOTE | 2025-01-16 14:53 | PTOTSP ---
Speech Therapy Evaluation
Pt seen for bedside swallow assessment. Pt is at an elevated risk for aspiration given history of CVA compounded by waning mental status, vomiting, recent results of CXR (indicating possible LLL PNA), and suspected encephalitis.�With PO trials of
thin liquids, pt appeared to have multiple swallow but no overt s/sx of aspiration. With solids (cracker), pt demonstrated prolonged mastication, piecemeal deglutition with residue dispersed throughout oral cavity. When clearing residue with thin
liquids, pt demonstrated prolonged, intense cough response. During second cracker trial, pt demonstrated intense cough response. With trials of puree, no overt s/sx of aspiration, however, when taking sips of thins immediately after, pt demonstrated
intense cough resonse. RR increased to 42, SaO2 levels maintained above 96. Pt reported SOB following x4 trials of PO solids.�
Recommend:
1. Temporary NPO
2. Aspiration Risk Hydration Protocol (thin liquids after oral care sparingly with supervision)
3. Medication preferrably nonorally. If orally, then provided sparingly with applesauce.�
4. KENNEL MANAGER DOG TRACK to follow to determine if pt is appropriate to initiate a PO diet
5. Can consider VSE given history of dysphagia and current s/sx of suspected aspiration
[2025-01-16] MEDS: FLUSH (NSS) 10 FLUSH IV ×2 (15:06→15:07)
[2025-01-16] MEDS: METHOCARBAMOL PO ×2 (16:41→23:53)
[2025-01-16] MEDS: LOVENOX 40 MG SC (17:23)
[2025-01-16 17:30] LABS: Glucose - Point of Care 283 mg/dl (70-99)
[2025-01-16] MEDS: DECADRON 6 MG IV (18:02)
[2025-01-16] MEDS: SODIUM BICARBONATE 1100 MEQ IV (20:39)
[2025-01-16 20:40] LABS: Glucose - Point of Care 267 mg/dl (70-99)
[2025-01-16] MEDS: MORPHINE SULFATE 1 MG IV (20:54)
[2025-01-16] MEDS: TOPROL XL PO (21:14)
[2025-01-16 23:59] LABS: Glucose - Point of Care 282 mg/dl (70-99)
[2025-01-17] VITALS (8 sets, daily range): BP systolic 101–199; BP diastolic 66–114
[2025-01-17] MEDS: DESENEX/MITRAZOL/ZEASORB 1 APPLIC TOPICAL ×3 (00:05→19:46)
[2025-01-17] MEDS: DECADRON 6 MG IV ×3 (00:06→13:06)
[2025-01-17] MEDS: NOVOLOG FLEXPEN-LOW RESISTANCE 3 UNITS SC ×3 (00:07→16:49)
[2025-01-17] MEDS: STERILE WATER FOR INJECTION 20 ML IV ×2 (00:10→14:24)
[2025-01-17] MEDS: FLUSH (NSS) IV ×4 (00:11→14:24)
[2025-01-17] MEDS: ROCEPHIN 2000 MG IV ×2 (00:11→14:24)
[2025-01-17] MEDS: ZOVIRAX INJECTION 267 MG IV ×3 (00:12→17:31)
[2025-01-17 05:44] LABS: Glucose - Point of Care 294 mg/dl (70-99)
[2025-01-17] MEDS: VIBRAMYCIN 260 MG IV ×2 (06:00→17:31)
[2025-01-17 08:09] LABS: Glucose - Point of Care 288 mg/dl (70-99)
[2025-01-17] MEDS: NOVOLOG FLEXPEN SC ×2 (08:11→13:03)
[2025-01-17] MEDS: LANTUS 0.1 UNITS SC (09:10)
[2025-01-17] MEDS: SODIUM BICARBONATE 1100 MEQ IV (09:11)
[2025-01-17] MEDS: METHOCARBAMOL 500 MG PO ×3 (10:06→21:37)
[2025-01-17] MEDS: PLAVIX 75 MG PO (10:06)
[2025-01-17] MEDS: PEPCID 40 MG PO (10:06)
[2025-01-17] MEDS: LEXAPRO 10 MG PO (10:06)
--- NOTE | 2025-01-17 10:06 | PTOTSP ---
Speech Therapy Update
Pt seen with trials of regular, minced and moist, and puree consistencies. With regular solids and minced/moist consistency, pt demonstrated oral hold and poor oral awareness, evidenced by stopping mid-chew, unaware that bolus was still in the oral
cavity. With verbal cues, pt was able to finish chewing. Pt grossly managed puree solids and thin liquids with no overt s/sx of aspiration. Pt at an increased risk of aspiration given current waning mentation.�
Recommend:
1. Initiate PO diet of IDDSI 4 Puree and IDDSI 0 Thin liquids. PO only when awake and alert.
2. Medication: consider crushed in puree. Ongoing cues to chew and swallow. Small bite size.
3. Discontinue PO intake if change in mentation, oxygen desaturation, or reduced level of alertness.
4. Aspiration Precautions: small bites/sips, slow rate, elevated HOB, interspace solids/liquids, full assistance/supervision with PO
5. CONCAVER to follow
[2025-01-17] MEDS: TOPROL XL 12.5 MG PO ×2 (10:07→19:46)
[2025-01-17] MEDS: DELTASONE 5 MG PO (10:07)
[2025-01-17] MEDS: VITAMIN D3 (cholecalciferol) 25 MCG PO (10:42)
[2025-01-17 11:33] LABS: ALT (SGPT) 14 U/L (0-35); AST (SGOT) 16 U/L (14-36); Albumin 2.8 g/dl (3.5-5.0); Alkaline Phosphatase 59 U/L (38-126); Blood Urea Nitrogen 26 mg/dl (7-17); Calcium 8.5 mg/dl (8.4-10.2); Carbon Dioxide 19 mmol/L (22-30); Chloride 111 mmol/L (98-107); Estimated Creatinine Clearance 67 ml/min; Glucose 352 mg/dl (70-99); Magnesium 1.7 mg/dl (1.6-2.3); Potassium 3.2 mmol/L (3.5-5.1); Sodium 137 mmol/L (135-145); Total Protein 5.1 g/dl (6.3-8.2); eGFR > 60.00
[2025-01-17 11:55] LABS: Glucose - Point of Care 343 mg/dl (70-99)
--- NOTE | 2025-01-17 12:45 | W.PN.ID1 ---
Date of Service
Date of Service: January 17, 2025
Today's Communication
Continue abx's.
Assessment / Plan
Encephalopathy/encephalitis, persists
Fever resolved
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
- Procalcitonin negative
- Bcx's neg to date
- Unsuccessful LP with traumatic tap 1cc fluid: 18WBC, 5291 RBC, 58% lymphocytes, 156 protein, gram stain neg, cx neg to date
- Serum WNV IgM pending
- MRI brain: limited study but no acute abnormality.
- Continue empiric ceftriaxone 2g q12, IV acyclovir
- Continue doxycycline
- Remains on dexamethasone.
- Monitor renal function closely while on IV acyclovir.
Chief Complaint
-: Fever and Other (Change in mental status.)
Subjective / Review of Systems
Confused, hallucinating. She sees the kitchen in the room.
Per nurse, did not sleep at all last night.
Vital Signs / Physical Exam
Vital Signs
Vital Signs
Temp Pulse Resp BP Pulse Ox
98.4 F 95 23 175/77 100
01/17/25 07:36 01/17/25 08:30 01/17/25 07:36 01/17/25 08:30 01/17/25 07:36
Physical Exam
Constitutional: No Acute Distress
Eyes: No Conjunctival Hemorrhage and Sclera Anicteric
Cardiovascular: Regular Rate and S1/S2
Pulmonary: Clear
Gastrointestinal: Soft, Non Tender, Non Distended and Normal Bowel Sounds
Genito-Urinary: Negative CVA Tenderness
Extremities: Negative Edema
Musculoskeletal: Other (left shoulder no erythema/effusion/warmth)
Skin: Other (Ecchymosis BUE)
Neurological: Awake and Alert; Negative Oriented or Meningeal Signs (neck supple)
Psychological: Confused and Other (Hallucinations)
Objective Data
Lab Data
Lab Results
01/17/25 10:55
PT 13.5 Sec (11.4-14.6) 01/15/25 11:45
INR 1.00 01/15/25 11:45
Estimated Creat Clear 67 ml/min 01/17/25 10:55
Lactic Acid 1.5 mmol/L (0.7-2.0) 01/15/25 00:27
Total Bilirubin 0.4 mg/dl (0.2-1.3) 01/17/25 10:55
AST 16 U/L (14-36) 01/17/25 10:55
ALT 14 U/L (0-35) 01/17/25 10:55
Alkaline Phosphatase 59 U/L (38-126) 01/17/25 10:55
Most recent labs reviewed.
Micro Results:
01/15/25 15:14 CSF Culture - Preliminary
Csf No Growth After 48 Hours
Gram Stain - Final
01/14/25 19:46 Blood Culture - Preliminary
Blood/Venous No Growth in 48 hours- Final report to follow
01/14/25 17:51 Blood Culture - Preliminary
Blood/Venous No Growth in 48 hours- Final report to follow
01/14/25 17:22 Urine Culture - Final
Urine
01/15/25 08:27 Nasal Screen MRSA (PCR) - Final
Nose MRSA not detected - performed by PCR methodology.
01/14/25 17:51 Influenza Types A & B (TERRI) - Final
Nasal Swab Negative for Influenza A & B, NAAT
Negative results must be combined with clinical observations
and patient history.
Nucleic Acid Amplification test (NAAT)performed on the
[employer] platform.
01/16/25 Brain MRI: Exam limited by motion artifact. Within these limitations: No acute intracranial abnormality noted.
MRI: Report Reviewed
[2025-01-17 12:53] LABS: Hematocrit 29.1 % (37.0-47.0); Hemoglobin 9.1 g/dL (12.0-16.0); Mean Corp Hgb Conc. 31.3 g/dL (33.0-37.0); Mean Corpuscular Volume 97.3 fL (81.0-99.0); Nucleated Red Blood Cells % 0 %; Platelet Count 182 10^3/uL (130-400); Red Cell Dist. Width 14.4 % (11.5-14.5)
[2025-01-17] MEDS: NOVOLOG FLEXPEN-LOW RESISTANCE 4 UNITS SC (13:06)
[2025-01-17] MEDS: KCL 270 MEQ IV (13:07)
--- NOTE | 2025-01-17 13:40 | W.PN.HOSP.TC ---
Addendum entered and electronically signed by Bola Tatum MD, Resident 01/17/25 15:35:
changed D5W to sterile saline with 3 amps bicarb for patients metabolic acidosis
Addendum entered and electronically signed by Carissa Coronado MD 01/17/25 15:02:
I saw and evaluated the patient independently. I reviewed and discussed the resident�s note and agree with findings and plan as documented by Dr. Tatum.
GENERAL: well developed, well nourished, obese female in no apparent distress
HEENT: NC/AT--interacting but hallucinating
HEART: regular rate and rhythm, +S1, +S2, ISHA
LUNGS : clear to auscultation bilaterally
ABDOM: soft, nontender, nondistended, + bowel sounds
EXT: no cyanosis, clubbing, or edema
NEUROLOGIC: not following commands
Sepsis with encephalopathy secondary to unclear source- concern for meningoencephalitis given neuro exam, headache, fever--improving but not at baseline and now hallucinating (nursing reports pt has not slept in 48 hours)--CT abdomen/pelvis shows
more atelectasis rather than PNA--History of right shoulder arthritis s/p abx spacer in November, and finished 6 weeks of ABX on 01/06/25-- CT head is negative, MRI brain limited but negative--apprec ID, neuro, IR consulted for LP (only 1 cc
obtained, traumatic tap?), CSF culture negative--empiric abx for meningitis (IV ceftriaxone, IV acyclovir, doxycycline, and steroids) --wean stress dose steroids, now down to dexamethasone 2mg IV O1A--Nwnk Nile Virus pending
hallucinations--multiple factors--QUALITY COMPLIANCE MANAGER infection, high dose steroids, no sleep for 48 hours--consult psych
acidosis--unclear cause--change IVF to include bicarb--was on D5W but sugars high
Acute Anemia on anemia of chronic disease--unclear cause--?dilutional--heme check stool, follow HGB, iron studies more consistent with chronic disease--PPI--transfuse for HGB < 7
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
Essential Hypertension-- hold losartan- continue metoprolol tartrate with hold parameters as able
CVA--held clopidogrel 01/15/25 PM for anticipated lumbar puncture--restarted plavix-- hold atorvastatin while NPO
Rheumatoid arthritis- On prednisone 5 at home. Held- Stress-dose steroids with dexamethasone 10 mg q6h IV--wean to 6 Q6H
DVT Proph - lovenox sq
Code status - Full Code
Original Note:
Today's Communication/Plan
-
- observe patients mental status with medication changes, follow up with psychiatry
Assessment / Plan
Assessment / Plan
Sepsis with encephalopathy secondary to possible viral source:
- Initial px with altered mental status, AOx1 on neuro exam, headache, and fever on presentation
- Investigations: chest xray shows possible pneumonia but then on CT abdomen pelvis shows more atelectasis, procalcitonin is less than 0.05, so less likely. CT head negative.
- downgraded patient to telemetry
- Spinal tap performed ( only 1 cc fluid obtained) shows CSF wbc of 18, CSF RBC of 5291, Csf cardioplegic 41%, CSF +50%, CSF macrophages 1%, CSF glucose 139, and CSF total protein 156 which points towards a traumatic tap and/or viral cause of
encephalitis. Was not virus IgM antibody pending.
-Blood cultures negative and CSF culture negative
- Infectious disease was consulted and want to continue the patient's empiric ceftriaxone 2 g every 12, IV acyclovir, doxycycline, dexamethasone. they are continuing to follow.
- Change the stress dose of dexamethasone to 2 mg every 6 hours from 6 mg every 6 hours.
- Neurology was also consulted and wants to hold off on EEG, continue her home dose clopidogrel and atorvastatin.
- Brain MRI shows no acute intracranial abnormalities
- upgraded patient to IDDSI4 diet
- PT/OT consulted
Active hallucinations due to unknown cause:
- Differential includes steroid induced psychosis, psychosis secondary to viral encephalitis, and an underlying psychiatric disorder or exacerbation of an established psychiatric disorder, due to electrolyte abnormality?
- Witnessed by infectious disease and physical therapy
- Consulted psychiatry
- Reduced Decadron dose from 6 mg iv Q6h to 2mg iv Q6h
Hypokalemia:
- potassium is 3.2, repleted potassium
Anemia of chronic disease:
- Hemoglobin is 9.1 from 10.4 yesterday.
- guaiac stools
- trend H/H q 24 hr
- ppi daily for now
- type and screen and transfuse for hgb < 7
� Iron studies consistent with anemia of chronic disease in 12/09/2024
Type 2 diabetes mellitus:
- Glucose today is 352
- Diabetic nurse practitioner consulted on 01/15/2025 and continued patient's sliding scale with insulin glargine 10 units and insulin aspart 2 units which we will continue
- Stress dose steroids adjusted to reflect glucose management control
Essential hypertension:
- hold losartan
- continue metoprolol tartrate with hold parameters
CVA
-Restart clopidogrel and atorvastatin
Rheumatoid arthritis
- On prednisone 5 at home.
- Stress-dose steroids with dexamethasone 2 mg q6h IV
DVT PPX - lovenox sq
Code status - Full Code
3
Anticipated Discharge: 24 - 48 hours
Subjective/Interval History
-
Date of Service: January 17, 2025
She has not slept in the last 48 hours according to the nurse.
Patient is actively hallucinating as per infectious disease and physical therapy.
Objective Data
-
Labs:
Laboratory Results
01/17/25 01/17/25 01/17/25
10:31 10:55 12:43
WBC Cancelled 8.1
Hgb Cancelled 9.1 L
Hct Cancelled 29.1 L
Plt Count Cancelled 182
Sodium 137
Potassium 3.2 L
Chloride 111 H
Carbon Dioxide 19 L
BUN 26 H
Creatinine 0.8
Glucose 352 H
Calcium 8.5
Total Bilirubin 0.4
AST 16
ALT 14
Alkaline Phosphatase 59
Vital Signs:
Vital Signs
Temp Pulse Resp BP Pulse Ox
98.4 F 98 20 158/80 97
01/17/25 12:38 01/17/25 12:38 01/17/25 12:38 01/17/25 12:38 01/17/25 12:38
I&O
01/16/25 01/17/25 01/18/25
06:59 06:59 06:59
Output Total 150 / 150 600 / 600
Balance -150 / -150 -600 / -600
Review of Systems
-
History Source: Patient and Family
All other systems: Reviewed and negative
Physical Exam
-
General: Well Developed, Well Nourished and Conversant
HEENT: Normocephalic, Atraumatic, Anicteric and No Ptosis; Negative Moist Mucous Membranes
Respiratory: Crackles
Cardiac: Regular Rhythm, S1/S2 and Murmur (systolic murmur)
GI: Soft, Nontender, Nondistended and Normal Bowel Sounds
Musculoskeletal: No Clubbing, No Cyanosis and No Edema
Skin: Warm and Dry
Neuro: Awake and Alert
Psych: Calm
Data Reviewed
-
Labs: Labs Reviewed by me and Discussed with Physician
[2025-01-17] MEDS: SODIUM BICARBONATE 1150 MEQ IV (14:23)
[2025-01-17 16:22] LABS: Glucose - Point of Care 262 mg/dl (70-99)
[2025-01-17] MEDS: NOVOLOG FLEXPEN 2 UNITS SC (16:50)
[2025-01-17] MEDS: LOVENOX 40 MG SC (17:31)
[2025-01-17] MEDS: DECADRON 2 MG IV (17:31)
--- NOTE | 2025-01-17 19:46 | CS.PSYCHR ---
Consult Summary - Psychiatry
-
pt seen in consultation due to report of halluciations and sleeplessness. Interviewed with
74 yo woman admitted for acute onset of altered mental status in setting of headache. Workup so far points to sepsis, getting treatment. Unclear past psychiatric history, treated for mild depression with lexapro 20 mg. Medical history significant
for rheumatoid arthritis with failed repeated surgeries on shoulder, chronic steroid use, CVA, coronary artery stening, DM, HTN,
Pt has had chronic debillitation but functional until this week when she found it difficult to answer questions. Has developed vivid visual hallucinations but cannot describe them well. Sleeping poorly per RN report; says was sleeping about
an hour at a time while in ICU
On mental status exam pt is lying on bed, arms with mulitple excoriations. Does not sit up, speech monotone, upset about questioning. Oriented to person place year, able to give number of years of marriage (52 confirmed by .) Affect rather
blunted, denies suicidality, denies depression. Limred insight, judgment.
Impression: subacute delirium
Rec: would try low dose seroquel to help with hallucinations and insomnia as underlying medical issues are addressed. Needs EKG before seroquel trial since now on doxycycline as well as lexapro
--- NOTE | 2025-01-17 20:00 | PTCARENOTE ---
resumed care of pt laying in bed AAOx2. Pt talking to self, and hallucinating. Easily redirected. LUE noted to be red and swollen. Left forearm int infusing IV ABX. IV appears infiltrated upon initial assessment. VAT RN called to assess. IV removed,
new left hand int placed. Arm elevated on pillow. Right midline in place infusing IVF as ordered. Pt inc of large amount of loose brown stool, MASD noted to jeff area, Jeff care provided, barrier ointment/ antifungal powder applied. Pt positioned
per comfort. Bed alarm in place. Call santos in reach. Will continue to monitor.
[2025-01-17 22:07] LABS: Glucose - Point of Care 259 mg/dl (70-99)
[2025-01-18] VITALS (7 sets, daily range): BP systolic 132–188; BP diastolic 66–100; PULSE 120; O2SAT 99; BMI 33.0
[2025-01-18] MEDS: DECADRON 2 MG IV ×4 (00:10→17:29)
--- NOTE | 2025-01-18 01:00 | PTCARENOTE ---
Pt wide awake, not sleeping, hallucinating, talking to self. Pt states she is at the gas station, and someone is trying to steal her wallet. When asked who pt is talking to she states 'my friend Ady, he doesnt sleep well, he is at the gas station
with me, I need my credit card to pay for the gas'. Pt getting increasingly agitated as she thinks her credit card is missing and unable to pay for the gas. Frequent reality orientation provided. House MANAGER BUILDING notified, orders obtained. IVF infusing as
ordered. Pt repositioned per comfort. Bed alarm in place. Will continue to monitor.
[2025-01-18] MEDS: FLUSH (NSS) IV ×2 (01:17→03:02)
[2025-01-18] MEDS: SODIUM BICARBONATE 1150 MEQ IV (01:19)
[2025-01-18] MEDS: SEROQUEL 25 MG PO ×2 (01:19→21:42)
[2025-01-18] MEDS: ZOVIRAX INJECTION 267 MG IV ×3 (01:20→17:29)
[2025-01-18] MEDS: STERILE WATER FOR INJECTION 20 ML IV ×2 (01:20→14:19)
[2025-01-18] MEDS: ROCEPHIN 2000 MG IV ×2 (01:20→14:19)
[2025-01-18 01:28] LABS: West Nile Virus, IgM, Serum 0.02 IV (<=0.89)
[2025-01-18 04:42] LABS: Hematocrit 27.0 % (37.0-47.0); Hemoglobin 8.8 g/dL (12.0-16.0); Mean Corp Hgb Conc. 32.6 g/dL (33.0-37.0); Mean Corpuscular Volume 93.1 fL (81.0-99.0); Nucleated Red Blood Cells % 0.3 %; Platelet Count 160 10^3/uL (130-400); Red Cell Dist. Width 14.4 % (11.5-14.5)
[2025-01-18 05:06] LABS: ALT (SGPT) 15 U/L (0-35); AST (SGOT) 17 U/L (14-36); Albumin 2.6 g/dl (3.5-5.0); Alkaline Phosphatase 51 U/L (38-126); Blood Urea Nitrogen 26 mg/dl (7-17); Calcium 8.1 mg/dl (8.4-10.2); Carbon Dioxide 25 mmol/L (22-30); Chloride 108 mmol/L (98-107); Estimated Creatinine Clearance 67 ml/min; Glucose 270 mg/dl (70-99); Magnesium 1.7 mg/dl (1.6-2.3); Potassium 3.3 mmol/L (3.5-5.1); Sodium 140 mmol/L (135-145); Total Protein 4.6 g/dl (6.3-8.2); eGFR > 60.00
[2025-01-18] MEDS: VIBRAMYCIN 260 MG IV (05:45)
--- NOTE | 2025-01-18 06:26 | PTCARENOTE ---
Pt able to get a few hours of sleep post Seroquel administration. Pt easily arousable, once awake continues to hallucinate and convinced she is seeing people. Pt encouraged to go back to sleep post jeff care. Pt positioned per comfort. IVF infusing
as ordered. Will continue to monitor.
--- NOTE | 2025-01-18 07:23 | PN.DE.MGMTRT ---
Insulin Management
- -
01/18/2025: Diabetes Management Follow up
74 year old female who abruptly developed headache, confusion, chills and vomiting yesterday
PMH: RA (on a TNFalphaI anakinra, prednisone 5 mg)
Since arrival here she has been spiking fevers to a Tmax of 102.6 rectally, bp running hypertensive, wbc initially 8.3 now 11.1, hgb 8.7, [id number], L shift is present, na 132 now 136, cr 0.9, lactic acid 1.5, t bili 0.5, ast 18, alt 14, alk phos 71,
procalcitonin <0.05, a random cortisol is pending, UA with 30-40 WBC/hpf, few bacteria, moderate yeast, COVID AG Negative, CT head L frontal sinusitis, also hyperostosis frontalis interna, CT a/p mild stercoral colitis and fecal impaction,
Spoke to pt's and son- report pt was taking NovoLog 2units AC, Lantus 24 units daily in AM and Metformin 500mg BID.
Pt uses CGM- Dexcom G7 and routinely sees her PCP Dr. Wilson for diabetes care. A1C 6.9%, Cr 0.7, eGFR >60.
Pt awake, alert, oriented to person offers no complains, up ambulating with PT, at bedside, Reviewed diabetes care plan with .
started stress dose steroids on 01/16. Currently on Dexa 2mg IV Q6 hrs, and Puree reg diet contributing to hyperglycemia
Glucose range yesterday 262 to 343 received 1-4 units of corrective insulin.
Will increase AC NovoLog to 6 units and Lantus from 10 units to 18 units (take 18 units at home). Cont low corrective insulin with meal. Modify diet to 1800 raudel puree diet. Discussed with Nurse. Will cont to follow
Diabetes History
- -
Type of Diabetes: 2 requiring insulin
Pre-Admission Diabetes Regimen
01/17/25 01/18/25
10:55 04:20
Creatinine 0.8 0.8
Insulin Pump Settings
IP Diabetes Regimen
01/17/25 01/17/25 01/17/25
08:08 10:55 11:53
Glucose 352 H
POC Glucose 288 H 343 H
01/17/25 01/17/25 01/18/25
16:20 22:05 04:20
Glucose 270 H
POC Glucose 262 H 259 H
Patient Education
[2025-01-18 08:04] LABS: Glucose - Point of Care 254 mg/dl (70-99)
[2025-01-18] MEDS: VITAMIN D3 (cholecalciferol) 25 MCG PO (08:22)
[2025-01-18] MEDS: DELTASONE 5 MG PO (08:22)
[2025-01-18] MEDS: TOPROL XL 12.5 MG PO ×2 (08:22→20:14)
[2025-01-18] MEDS: METHOCARBAMOL 500 MG PO ×3 (08:22→21:41)
[2025-01-18] MEDS: PEPCID 40 MG PO (08:22)
[2025-01-18] MEDS: PLAVIX 75 MG PO (08:22)
[2025-01-18] MEDS: LEXAPRO 10 MG PO (08:22)
[2025-01-18] MEDS: DESENEX/MITRAZOL/ZEASORB 1 APPLIC TOPICAL ×2 (08:24→20:14)
[2025-01-18] MEDS: NOVOLOG FLEXPEN-LOW RESISTANCE 3 UNITS SC ×2 (08:28→17:31)
[2025-01-18] MEDS: NOVOLOG FLEXPEN 6 UNITS SC ×3 (08:29→17:31)
[2025-01-18] MEDS: NOVOLOG FLEXPEN SC (08:30)
[2025-01-18 09:18] LABS: Glycohemoglobin (HgbA1c) 6.7 % (4.0-5.9)
--- NOTE | 2025-01-18 09:22 | W.PN.HOSP.TC ---
Today's Communication/Plan
-
Dissipate repeat lumbar puncture today, since first lab puncture was unsuccessful, yielding minimal CSF.
Pending EKG to monitor QTc on QT prolonging meds: Seroquel, doxycycline, escitalopram.
Patient is continuing to have visual hallucinations this morning.
Assessment / Plan
Assessment / Plan
Impression
Ms. Eliz Obando is a 74-year-old woman with PMH notable for IDDM, HTN, HLD, rheumatoid arthritis, and CVA who presented with confusion and a headache, and suspected to have meningoencephalitis.
First lumbar puncture only obtained 1 mL of bloody CSF. Second lumbar puncture was attempted.
In addition to empiric antibiotics, she was started on dexamethasone 10 mg IV every 6 hours. She developed visual hallucinations. Dexamethasone was decreased and psychiatry was consulted.
Plan
Sepsis with encephalopathy secondary to possible viral source:
- Initial px with altered mental status, AOx1 on neuro exam, headache, and fever on presentation
- Investigations: chest xray shows possible pneumonia but then on CT abdomen pelvis shows more atelectasis. procalcitonin is less than 0.05, so less likely. CT head negative.
- downgraded to telemetry
:: Blood cultures negative
:: West Nile virus IgM antibody negative
First lumbar puncture only obtained 1 cc bloody CSF
:: CSF analysis: wbc of 18 high, lymphocytes 58%, macrophages 1%, granulocytes 41%, glucose 139, total protein 156, turbid, red, RBC of 5291. Suggests unsuccessful traumatic tap and/or viral cause of encephalitis.
:: CSF culture negative
Repeat LP for meningitis panel, CRAG, VDRL, WNV IgM, anti-NMDAR antibody if sufficient sample
- Decreased the stress dose of dexamethasone to 2 mg iv Q6h to 6 mg iv Q6h
- upgraded to IDDSI4 diet
- PT/OT consulted
Neurology consulted:
� Hold off on EEG. Continue home clopidogrel and atorvastatin. Consider stress dose steroids
:: Brain MRI shows no acute intracranial abnormalities, but limited by motion artifact
Infectious disease consulted
� Continue empiric IV acyclovir and p.o. doxycycline (01/15/2025�). Cefepime discontinued. Ampicillin discontinued. Ceftriaxone discontinued
� Monitor renal function closely while on IV acyclovir
Active hallucinations due to unknown cause:
:: Differential includes steroid induced psychosis, psychosis secondary to viral encephalitis, and an underlying psychiatric disorder or exacerbation of an established psychiatric disorder, due to electrolyte abnormality?
:: Witnessed by infectious disease and physical therapy
- Reduced Decadron dose from 6 mg iv Q6h to 2mg iv Q6h
Psychiatry consulted: Subacute delirium
� Low-dose Seroquel 25 mg p.o. for hallucinations and insomnia
� Pending QTc on EKG (Seroquel, doxycycline, and home Lexapro)
Hypokalemia:
- Repleted as needed
Anemia of chronic disease:
- Hemoglobin is 9.1 from 10.4 yesterday.
- guaiac stools
- trend H/H q 24 hr
- ppi daily for now
- type and screen and transfuse for hgb < 7
� Iron studies consistent with anemia of chronic disease in 12/09/2024
Type 2 diabetes mellitus:
:: A1c 6.7%
Diabetic nurse practitioner consulted
� After diet advanced from n.p.o. to IDDSI 4, now on 18 units glargine, 6 units AC.
� Metformin 500 mg p.o. twice daily held since admission. Brain MRI and head CT obtained. Creatinine at baseline 0.8 since admission.
Essential hypertension:
-Home losartan 25 mg p.o. daily resumed
- continue metoprolol tartrate with hold parameters
History of azoleCVA
- Home clopidogrel 75 mg daily and atorvastatin 40 mg every afternoon resumed
Rheumatoid arthritis
- Resumed home prednisone 5 p.o. daily
- Stress-dose steroids with dexamethasone 2 mg q6h IV
DVT PPX - lovenox sq
Code status - Full Code
Anticipated Discharge: > 48 hours
Subjective/Interval History
-
Date of Service: January 18, 2025
No acute events overnight. Patient says she feels lousy today. She also says she did not sleep much last night such as only 3 hours, whereas she usually sleeps 10 hours at home.
The patient was oriented to her name, location, and her situation. She thought it was 2025. She was oriented to the month.
The patient was hallucinating 2 other people in the room. She asked if there was a boy standing behind her. She also suggested that there was a person standing behind me, when there was not.
Objective Data
-
Labs:
Laboratory Results
01/18/25
04:20
WBC 6.4
Hgb 8.8 L
Hct 27.0 L
Plt Count 160
Sodium 140
Potassium 3.3 L
Chloride 108 H
Carbon Dioxide 25
BUN 26 H
Creatinine 0.8
Glucose 270 H
Calcium 8.1 L
Total Bilirubin 0.3
AST 17
ALT 15
Alkaline Phosphatase 51
Vital Signs:
Vital Signs
Temp Pulse Resp BP Pulse Ox
98.9 F 138 19 173/99 98
01/18/25 07:00 01/18/25 07:00 01/18/25 07:00 01/18/25 07:30 01/18/25 07:00
I&O
01/17/25 01/18/25 01/19/25
06:59 06:59 06:59
Intake Total 2250 / 2250
Output Total 600 / 600
Balance -600 / -600 2250 / 2250
Review of Systems
-
History Source: Patient and Family
All other systems: Reviewed and negative
Physical Exam
-
General: Well Developed, Well Nourished, No Apparent Distress, Comfortable and Conversant
HEENT: Normocephalic, Atraumatic, Moist Mucous Membranes (Right lips with white plaques), Anicteric, No Ptosis, Nose Appears Normal and Ears Appear Normal
Respiratory: Clear to Auscultation
Cardiac: Regular Rhythm and S1/S2
GI: Soft, Nontender, Nondistended and Normal Bowel Sounds
Musculoskeletal: No Clubbing, No Cyanosis and No Edema
Skin: Warm and Dry
Neuro: Awake and Alert
Psych: Calm, Confused and Other (Visual hallucinations of additional people in the room)
--- NOTE | 2025-01-18 09:38 | W.PN.UPDATE ---
Addendum entered and electronically signed by Jem Jensen MD 01/18/25 16:09:
Stage 2 gluteal cleft pressure injury, POA
Original Note:
Update Note
Progress Note Update
I saw and evaluated the patient. I reviewed the resident�s note and agree with findings and plan as documented in the resident�s note.
No new complaints.
Gen: NAD, AAOx3.
Eyes: EOMI, PERRLA, no scleral icterus.
Neck: supple.
CV: Tachycardic, regular rhythm, +S1/S2, no m/r/g.
Resp: CTAB, no rales, wheezes, or rhonchi.
Abd: +BS, soft, NT, ND
Skin: No rashes.
Neuro: CN 2-12 intact, non-focal.
Psych: Normal mood and affect.
01/14/25 19:46 Blood/Venous Blood Culture - Preliminary
No Growth in 72 hours- Final report to follow
01/14/25 17:51 Blood/Venous Blood Culture - Preliminary
No Growth in 72 hours- Final report to follow
01/15/25 15:14 Csf CSF Culture - Preliminary
No Growth After 48 Hours
01/15/25 15:14 Csf Gram Stain - Final
01/14/25 17:22 Urine Urine Culture - Final
01/15/25 08:27 Nose Nasal Screen MRSA (PCR) - Final
MRSA not detected - performed by PCR methodology.
01/14/25 17:51 Nasal Swab Influenza Types A & B (TERRI) - Final
Negative for Influenza A & B, NAAT
Negative results must be combined with clinical observations
and patient history.
Nucleic Acid Amplification test (NAAT)performed on the
[employer] NOW platform.
MRI brain: Exam limited by motion artifact. Within these limitations: No acute intracranial abnormality noted.
CT A/P:
1. Mild acute stercoral colitis and fecal impaction in the rectum.
2. Moderate to severe chronic bilateral renal disease.
3. Very severe calcific atherosclerotic plaque in the abdominal aorta, femoral, and visceral arteries.
4. Small hiatal hernia.
5. Mild cardiomegaly.
6. Severe discogenic degenerative disease at L5/S1.
CXR:
1. Moderate airspace opacity in the posterior basilar left lower lobe. Diagnostic possibilities are (1) left lower lobe pneumonia or (2) scarring and subsegmental atelectasis.
2. Mild cardiomegaly.
3. Mildly decreased lung volumes.
4. Cement spacer in the left proximal humerus.
Sepsis and acute metabolic encephalopathy:
-likely due to meningoencephalitis given neuro exam, headache, fever
-s/p LP, only 1cc obtained and RBC 5291 so likely traumatic tap. WBC 18, gluc/prot elevated, CSF Cx NGTD
-currently on empiric abx/antivirals for meningitis, Rocephin/Acyclovir/Doxy
-currently on stress dose steroids, currently being weaned
-hallucinations likely multifactorial due to acute meningitis, steroids, and a lack of sleep. Appreciated psych, Dx subacute delirium, Seroquel PRN
Other problems:
Acute non-AG met acidosis, resolved with IVFs with bicarb
Acute anemia on anemia of chronic disease: likely dilutional, trend Hb
DM2: a1c 6.7%, cont Lantus/premeal Novolog/SSI/accuchecks, diabetes [employer] following
Essential HTN: cont BB, restart Losartan
h/o CVA: cont Plavix, restart statin
RA: currently tapering stress dose steroids
Hypokalemia, replete
Family updated at bedside.
FULL/lovenox
Total time spent on today's encounter was 50 minutes which included time spent in counseling the patient/family regarding diagnosis and treatment plan as listed above, goals of care, and symptom management. Case was discussed with nursing staff,
specialists, and care coordinators/case management. All labs and imaging personally reviewed by me. Remainder the time spent in detailed review of previous records, lab data, imaging, and other medical provider documentation.
[2025-01-18] MEDS: LANTUS 0.18 UNITS SC (09:59)
--- NOTE | 2025-01-18 10:20 | W.PN.ID1 ---
Addendum entered and electronically signed by Cecile Quarles MD 01/18/25 15:46:
chart checked, LP not yet completed
Original Note:
Date of Service
Date of Service: January 18, 2025
Today's Communication
- repeat LP today for meningitis panel, CRAG,VDRL, WNV IgM, anti-NMDAR antibody if sufficient sample
- Serum WNV IgM negative
- MRI brain: limited study but no acute abnormality.
- stop ceftriaxone
- continue IV acyclovir
- Continue doxycycline
Assessment / Plan
Encephalopathy/encephalitis, improving
Fever resolved
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
Recent culture negative L shoulder PJI s/p explant 11/27/24 at [facility] placed on Tedizolid, but developed diarrhea and replaced with doxy on 12/24 through 01/06.
- Procalcitonin negative
- Bcx's neg to date
- 01/15 Unsuccessful LP with traumatic tap 1cc fluid: 18WBC, 5291 RBC, 58% lymphocytes, 156 protein, gram stain neg, cx neg to date
- repeat LP today for meningitis panel, CRAG,VDRL, WNV IgM, anti-NMDAR antibody if sufficient sample
- Serum WNV IgM negative
- MRI brain: limited study but no acute abnormality.
- stop ceftriaxone
- continue IV acyclovir
- Continue doxycycline
- Remains on dexamethasone as stress dose steroids per IM service
- Monitor renal function closely while on IV acyclovir.
Chief Complaint
-: Fever and Other (Change in mental status.)
Subjective / Review of Systems
afebrile
bp stable
now oriented to person place and time; alert but somewhat confused
discussed with her : no sick contacts, travel, minimal time outside and no tick/mosquito exposure known, no bat exposure
Vital Signs / Physical Exam
Vital Signs
Vital Signs
Temp Pulse Resp BP Pulse Ox
98.9 F 138 19 173/99 98
01/18/25 07:00 01/18/25 07:00 01/18/25 07:00 01/18/25 07:30 01/18/25 07:45
Physical Exam
Constitutional: No Acute Distress
Cardiovascular: Regular Rate and S1/S2; Negative Murmur or Rub
Pulmonary: Clear and Symmetric; Negative Wheezes or Rales
Gastrointestinal: Soft, Non Tender, Non Distended and Normal Bowel Sounds
Skin: Warm and Dry; Negative Rash or Jaundice
Objective Data
Lab Data
Lab Results
01/18/25 04:20
01/18/25 04:20
PT 13.5 Sec (11.4-14.6) 01/15/25 11:45
INR 1.00 01/15/25 11:45
Estimated Creat Clear 67 ml/min 01/18/25 04:20
Lactic Acid 1.5 mmol/L (0.7-2.0) 01/15/25 00:27
Total Bilirubin 0.3 mg/dl (0.2-1.3) 01/18/25 04:20
AST 17 U/L (14-36) 01/18/25 04:20
ALT 15 U/L (0-35) 01/18/25 04:20
Alkaline Phosphatase 51 U/L (38-126) 01/18/25 04:20
Most recent labs reviewed.
Micro Results:
01/14/25 19:46 Blood Culture - Preliminary
Blood/Venous No Growth in 72 hours- Final report to follow
01/14/25 17:51 Blood Culture - Preliminary
Blood/Venous No Growth in 72 hours- Final report to follow
01/15/25 15:14 CSF Culture - Preliminary
Csf No Growth After 48 Hours
Gram Stain - Final
01/14/25 17:22 Urine Culture - Final
Urine
01/15/25 08:27 Nasal Screen MRSA (PCR) - Final
Nose MRSA not detected - performed by PCR methodology.
01/14/25 17:51 Influenza Types A & B (TERRI) - Final
Nasal Swab Negative for Influenza A & B, NAAT
Negative results must be combined with clinical observations
and patient history.
Nucleic Acid Amplification test (NAAT)performed on the
[employer] platform.
01/16/25 Brain MRI: Exam limited by motion artifact. Within these limitations: No acute intracranial abnormality noted.
[2025-01-18] MEDS: KCL 40 MEQ PO (10:30)
[2025-01-18] MEDS: COZAAR 25 MG PO (10:40)
[2025-01-18] MEDS: PROTONIX 20 MG PO (10:42)
--- NOTE | 2025-01-18 11:09 | W.PN.NEURO.1 ---
Addendum entered and electronically signed by Vance Quintana MD 01/18/25 20:12:
I saw and examined the patient today along with the nurse practitioner Aubrie Arciniega, and I agree with her assessment and the management plan. Given below is my addendum.
The is a 74 years old female who presented with an acute change in mental status. Her mental status has improved significantly, however she is still not back to her baseline as per her . There is no history to suggest a seizure. Will
consider EEG if she does not improve further today.
The patient is alert and oriented to self and person but she does not know that she is in the hospital. Her speech is clear.
The patient has been seen by ID who suggested to repeat the LP today. The ID also suggested to continue with acyclovir and doxycycline. but to stop ceftriaxone.
There is a concern for meningitis/encephalitis. Seizure appears to be less likely.
The MRI of the brain did not show any acute intracranial abnormality.
The patient's was present at the bedside to provide history.
Will follow.
Original Note:
Today's Communication / Plan
-
.
Neuro Assessment/Plan
Assessment
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
Differential diagnosis includes meningitis/encephalitis and toxic metabolic encephalopathy. MRI was negative for stroke. Seizure is less likely given no seizure acitvity noted.
Plan
EEG is still unlikely to be helpful at this time now that she is improving. If there is no improvement overnight, will likely order Routine EEG.
Continue clopidogrel
Continue atorvastatin
Goal of normoglycemia
Goal of normotension
Attempt to reduce exposure to sedative agents
Antibiotic coverage as per primary service and infectious disease
consider stress dose steroids
Subjective/Objective
Subjective Data
Date of Service: January 18, 2025
Patient is alert but still confused.
Objective Data
Vital Signs
Temp Pulse Resp BP Pulse Ox
97.7 F 114 18 159/66 97
01/18/25 11:00 01/18/25 11:00 01/18/25 11:00 01/18/25 11:00 01/18/25 11:00
Lab Results
01/18/25 04:20
01/18/25 04:20
PT 13.5 Sec (11.4-14.6) 01/15/25 11:45
INR 1.00 01/15/25 11:45
Sodium 140 mmol/L (135-145) 01/18/25 04:20
Potassium 3.3 mmol/L (3.5-5.1) L 01/18/25 04:20
BUN 26 mg/dl (7-17) H 01/18/25 04:20
Glucose 270 mg/dl (70-99) H 01/18/25 04:20
Calcium 8.1 mg/dl (8.4-10.2) L 01/18/25 04:20
Vitamin B12 794 pg/ml (239-931) 01/15/25 08:56
Patient Allergies
cefaclor Allergy (Verified 01/14/25 17:19)
tolerating cefepime 04/14/22
ciprofloxacin Allergy (Verified 01/14/25 17:19)
Rash
clindamycin Allergy (Verified 01/14/25 17:19)
Rash
erythromycin base Allergy (Verified 01/14/25 17:19)
Rash
melatonin Allergy (Verified 01/15/25 17:01)
pt 'spaces out'
Sulfa (Sulfonamide Antibiotics) Allergy (Verified 01/14/25 17:19)
Rash
vancomycin Allergy (Verified 01/14/25 17:19)
Rash
'all antibx except for keflex&PCN' Allergy (Uncoded 01/14/25 17:19)
Unknown
Review of Systems
-
History Source: Patient
Neuro: Negative Dizzy, Headache, Weakness, Numbness, Ataxia, Tremors or Speech Problem
Physical Exam
-
General: No Apparent Distress
Eyes: No Ptosis and PERRLA
HEENT: Normocephalic and Atraumatic
Neck: Full Range of Motion
Respiratory: No Dyspnea
GI: Non-distended
Psych: Confused
Extended Neurological Exam
Attention Span & Concentration: Awake and Alert
Memory: Reduced (Oriented to self, not place, or time.)
Tremor: Hand Tremor Absent and Head Tremor Absent
Involuntary Movement: None
Speech: Quality Unremarkable, Quantity Unremarkable and Rate of Production Unremarkable
Cranial Nerve II: Left Eye: Pupillary Reactivity Unremarkable, Pupillary Size Unremarkable and Visual Goode Intact
Cranial Nerve II: Right Eye: Pupillary Reactivity Unremarkable, Pupillary Size Unremarkable and Visual Goode Intact
Cranial Nerves III, IV, : Extraocular Movement: Extraocular Movement Full in all Directions
Cranial Nerve VII: Facial Symmetry: Normal Facial Symmetry
Cranial Nerve VIII: Hearing: Unremarkable Hearing to Normal Conversational Volume
Cranial Nerve XI: Shoulder Shrug: Unable to Assess (left shoulder )
Cranial Nerve XII: Tongue Protusion: Midline
Muscle Strength, Overall: Other (LINDEN proximal LUE, distally 5/5. RUE and BLE 5/5.)
Coordination: [id number] Testing Unremarkable (in the RUE, LINDEN LUE)
Data Reviewed
-
MRI Head: Report Reviewed and Image Reviewed
Medical Test Reports: Report Reviewed
Labs: Report Reviewed
Reviewed with: Physician, Patient and Family
Medications
-
Active Medications
Generic Name Dose Route Start Last Admin
Trade Name Freq PRN Reason Stop Dose Admin
Acetaminophen 650 mg 01/15/25 06:00
Acetaminophen 325 Mg Tablet PO 02/12/25 05:59
Q4HPRN PRN
mild pain/ELENA/temp>100.5
Albuterol/Ipratropium 3 ml 01/15/25 01:50
Ipratropium 0.5/Albuterol 3 Mg (3 Ml Ampul) INH
R Q4HPRN PRN
sob/wheeze
Protocol
Atorvastatin Calcium 40 mg 01/18/25 18:00
Atorvastatin (Lipitor) 40 Mg Tablet PO 02/15/25 17:59
QPM DEON
Ceftriaxone Sodium 2,000 mg 01/15/25 14:00 01/18/25 14:19
Ceftriaxone 2,000 Mg/20 Ml Vial IV 2,000 mg
Q12H DEON Administration
Cholecalciferol 25 mcg 01/15/25 08:00 01/18/25 08:22
Cholecalciferol (Vitamin D3) 25 Mcg Tablet (1,000 Units) PO 02/12/25 07:59 25 mcg
DAILY DEON Administration
Clopidogrel Bisulfate 75 mg 01/15/25 08:00 01/18/25 08:22
Clopidogrel 75 Mg Tablet PO 02/12/25 07:59 75 mg
DAILY DEON Administration
Dexamethasone Sodium Phosphate 2 mg 01/17/25 18:00 01/18/25 12:03
Dexamethasone 4 Mg/Ml 1 Ml Vial IV 01/19/25 12:01 2 mg
Q6 DEON Administration
Dextrose 12.5 grams 01/17/25 15:00
Dextrose 50% (0.5 Grams/Ml) 50 Ml Syringe IV 02/14/25 14:59
[id number] PRN
hypoglycemia
Protocol
Doxycycline Hyclate 100 mg 01/18/25 20:00
Doxycycline 100 Mg Capsule PO
BID DEON
Enoxaparin Sodium 40 mg 01/15/25 18:00 01/17/25 17:31
Enoxaparin Sodium 40 Mg/0.4 Ml Syringe SC 02/12/25 17:59 40 mg
QPM DEON Administration
Escitalopram Oxalate 10 mg 01/15/25 08:00 01/18/25 08:22
Escitalopram 5 Mg Tablet PO 02/12/25 07:59 10 mg
DAILY DEON Administration
Famotidine 40 mg 01/15/25 08:00 01/18/25 08:22
Famotidine 20 Mg Tablet PO 02/12/25 07:59 40 mg
DAILY DEON Administration
Glucagon 1 mg 01/17/25 15:00
Glucagon 1 Mg Vial IM 02/14/25 14:59
PRN PRN
hypoglycemia
Protocol
Acyclovir Sodium 850 mg/ 267 mls @ 250 mls/hr 01/16/25 18:00 01/18/25 10:09
Sodium Chloride IV 01/26/25 17:59 267 mls
Q8H DEON Administration
Insulin Glargine 18 units/ 0.18 mls @ 0 mls/hr 01/18/25 08:30 01/18/25 09:59
Device SC 02/13/25 08:29 0.18 mls
DAILY DEON Administration
As Directed
Insulin Aspart 0 units 01/17/25 16:30 01/18/25 12:02
Insulin Aspart Low Resistance 300 Units/3 Ml Pen.Injctr SC 02/14/25 16:29 5 units
AC DEON Administration
Protocol
Insulin Aspart 6 units 01/18/25 08:22 01/18/25 12:03
Insulin Aspart (Novolog) 100 Units/Ml 3 Ml Flexpen SC 02/13/25 08:21 6 units
AC DEON Administration
Losartan Potassium 25 mg 01/18/25 10:25 01/18/25 10:40
Losartan 25 Mg Tablet PO 02/15/25 10:24 25 mg
DAILY DEON Administration
Methocarbamol 500 mg 01/15/25 08:00 01/18/25 08:22
Methocarbamol 500 Mg Tablet PO 02/12/25 07:59 500 mg
TID DEON Administration
Methocarbamol 500 mg 01/15/25 01:50
Methocarbamol 500 Mg Tablet PO 02/12/25 01:49
TIDPRN PRN
muscle spasam
Metoprolol Succinate 12.5 mg 01/15/25 08:00 01/18/25 08:22
Metoprolol 12.5 Mg Extended Release Dose (1/2 Of 25 Mg Xl Tablet) PO 02/12/25 07:59 12.5 mg
BID DEON Administration
Metoprolol Tartrate 5 mg 01/16/25 14:02 01/16/25 21:16
Metoprolol 5 Mg/5 Ml Vial IV 02/13/25 13:59 5 mg
Q6HPRN PRN Administration
HR > 120 sustained
Miconazole Nitrate 0 applic 01/16/25 20:00 01/18/25 08:24
Miconazole Powder Bottle TOPICAL 02/13/25 19:59 1 applic
BID DEON Administration
Morphine Sulfate 1 mg 01/15/25 22:35 01/16/25 20:54
Morphine 2 Mg/Ml Syringe IV 01/29/25 22:34 1 mg
Q4HPRN PRN Administration
severe pain
Pantoprazole Sodium 20 mg 01/18/25 11:00 01/18/25 10:42
Pantoprazole 20 Mg Delayed Release Tablet PO 02/15/25 10:59 20 mg
DAILY DEON Administration
Prednisone 5 mg 01/15/25 08:00 01/18/25 08:22
Prednisone 5 Mg Tablet PO 02/12/25 07:59 5 mg
DAILY DEON Administration
Sodium Chloride 0 flush 01/15/25 04:00 01/16/25 01:28
Sodium Chloride 0.9% (Flush) Syringe IV 02/12/25 03:59 1 flush
PER PROTOCOL DEON Administration
Sterile Water 20 ml 01/15/25 14:00 01/18/25 14:19
Sterile Water For Injection 20 Ml Vial IV 02/12/25 13:59 20 ml
Q12H DEON Administration
Tramadol HCl 50 mg 01/15/25 01:50
Tramadol Hcl 50 Mg Tablet PO 02/12/25 01:49
Q6HPRN PRN
severe pain
Home Medications
�Medication �Instructions �Recorded
cholecalciferol (vitamin D3) 25 25 mcg PO DAILY #90 tabs 05/15/22
mcg (1,000 unit) tablet
clopidogrel 75 mg tablet 75 mg PO DAILY #90 tabs 05/15/22
escitalopram oxalate 5 mg tablet 10 mg (2 x 5 mg) PO DAILY #90 tabs 05/15/22
famotidine 40 mg tablet 40 mg PO DAILY #90 tabs 05/15/22
losartan 25 mg tablet 25 mg PO DAILY #90 tabs 05/15/22
metformin 500 mg tablet 500 mg PO BID@0800,1700 #180 tabs 05/15/22
tramadol 50 mg tablet 50 mg PO Q6HPRN PRN severe pain 05/15/22
#20 tabs
anakinra 100 mg/0.67 mL 100 mg SC DAILY Autoimmune Disorder 01/14/25
subcutaneous syringe (Kineret)
atorvastatin 80 mg tablet 40 mg PO QPM High Cholesterol 01/14/25
cranberry fruit concentrate 250 mg 250 mg PO TID Supplement 01/14/25
chewable tablet (Azo Cranberry)
glucosamine sulf dipot See Rx Instructions .Route 01/14/25
chlr,msm,chond 550 mg-C 30 mg-heather .COMPLEX Supplement
1 mg capsule (Glucosamine
Chondroitin)
insulin aspart U-100 100 unit/mL 2 sliding scale dose SC 01/14/25
(3 mL) subcutaneous pen (Novolog DIRECTED Diabetes
FlexPen U-100 Insulin aspart)
insulin glargine 100 unit/mL (3 18 unit SC DAILY Diabetes 01/14/25
mL) subcutaneous pen (Lantus
Solostar U-100 Insulin)
prednisone 5 mg tablet 5 mg PO DAILY Anti-Inflammatory 01/14/25
vitamin B12 1,000 mcg-folic acid 1,000 tab sublingual DAILY 01/14/25
400 mcg sublingual tablet Supplement
acetaminophen 500 mg tablet 1,000 mg PO Q6HPRN PRN mild pain 01/15/25
(Tylenol Extra Strength)
metoprolol succinate 25 mg 12.5 mg PO BID Heart 01/15/25
tablet,extended release 24 hr Disease/Condition
(Toprol XL)
[2025-01-18 11:57] LABS: Glucose - Point of Care 373 mg/dl (70-99)
[2025-01-18] MEDS: NOVOLOG FLEXPEN-LOW RESISTANCE 5 UNITS SC (12:02)
--- NOTE | 2025-01-18 12:20 | CM ---
Patient seen at bedside on . Patient plan is for SNF following discussion with patient also at bedside. Patient given information about SNF options and Medicare.gov/pac data. Patient to discuss with family and initially
indicated that he would like to start with referral to [facility] in [place]. CM will continue to follow for discharge planning needs.
Plan; referrals to SNF options per family
--- NOTE | 2025-01-18 13:46 | PN.CDI ---
CDI
- -
CDI:
Physician Documentation Request
Admit Date: 01/15/25 00:38
Dear Doctor Nely,
Patient admitted with sepsis with encephalopathy secondary to possible viral source.
01/16 Nursing skin assessment, 'Stage 2 gluteal cleft pressure injury, POA.'
Physician documentation of the type and location of wounds is required for compliant documentation. Based on the above clinical findings and your assessment, please provide the following in your progress note:
Type (etiology) of ulcer/wound:
- Pressure (decubitus) ulcer
- Other
- Unable to determine
For a pressure ulcer, please also include the stage* of the ulcer:
- Stage 1 - Skin intact, non-blanchable redness
- Stage 2 - Partial thickness loss of dermis, includes intact or open blister
- Stage 3 - Full thickness tissue not including bone, tendon or muscle
- Stage 4 - Full thickness tissue loss, including exposed bone, tendon or muscle
- Unstageable - Full thickness loss in which the base of the ulcer is covered by slough (yellow, murry, vernon, green or brown) and/or eschar (murry, brown or black) in the wound bed.
- Unable to determine
Use of terms such as suspected, likely, concern for, or probable (associated with a specific diagnosis that is being evaluated, monitored, or treated as if it exists) are acceptable and can be coded in the inpatient setting, when documented at the
time of discharge.
Thank you,
Korin DAIGLE,RN,CCDS
CDI Specialist
Available via tiger text
Please use your independent medical judgment in providing your response.
*Source: National Pressure Ulcer Advisory Panel (NPUAP)
[2025-01-18 16:37] LABS: Glucose - Point of Care 287 mg/dl (70-99)
[2025-01-18] MEDS: LOVENOX 40 MG SC (17:28)
[2025-01-18] MEDS: LIPITOR 40 MG PO (17:31)
--- NOTE | 2025-01-18 19:46 | PTOTSP ---
ST Follow-Up
Pt continues to present with clinical signs/symptoms of mild oropharyngeal dysphagia characterized by reduced bolus formation with oral residue that is cleared with liquid washes as well as overt coughing with thin liquids with sequential sips that
is highly suspicious for airway invasion.
Recommendations:
- Upgrade diet to SOFT BITE SIZED SOLIDS with THIN LIQUIDS with SMALL SINGLE SIPS and meds whole in puree.
- Aspiration precautions: Pt must be fully awake/alert for PO intake; assistance with feeding as needed; HOB upright for PO intake; small bites/sips; slow intake rate; alternate solids/liquids.
- [employer] to f/u re: diet tolerance, use of compensatory strategies, assessment for candidacy for further diet upgrades, and to determine if pt would benefit from an instrumental swallow study.
[2025-01-18] MEDS: VIBRAMYCIN 100 MG PO (20:14)
--- NOTE | 2025-01-18 21:23 | W.PN.UPDATE ---
Update Note
Progress Note Update
pt seen in am. stated she got some sleep last night. being assessed by physical therapy, no complaints of hallucinations to me (though did say to RN.) will continue seroquel, make standing
[2025-01-18 21:47] LABS: Glucose - Point of Care 254 mg/dl (70-99)
[2025-01-19] MEDS: ZOVIRAX INJECTION 267 MG IV ×3 (01:32→17:37)
[2025-01-19] MEDS: STERILE WATER FOR INJECTION 20 ML IV ×2 (01:33→13:08)
[2025-01-19] MEDS: ROCEPHIN 2000 MG IV ×2 (01:33→13:08)
--- NOTE | 2025-01-19 03:30 | W.PN.UPDATE ---
Update Note
Progress Note Update
RN reports patient had a 'tarry' stool and noticed blood on the tissue after wiping. Will check heme stool, labs in AM. stable Vs. on Plavix.
--- NOTE | 2025-01-19 03:31 | PTCARENOTE ---
patient had bowel movement that was black and had blood on the wipe. MARY Ornelas notified. new orders placed to heme test stools. POC ongoing.
[2025-01-19 04:42] LABS: Hematocrit 26.3 % (37.0-47.0); Hemoglobin 8.6 g/dL (12.0-16.0); Mean Corp Hgb Conc. 32.7 g/dL (33.0-37.0); Mean Corpuscular Volume 95.3 fL (81.0-99.0); Platelet Count 142 10^3/uL (130-400); Red Cell Dist. Width 14.3 % (11.5-14.5)
[2025-01-19 05:03] LABS: ALT (SGPT) 14 U/L (0-35); AST (SGOT) 15 U/L (14-36); Albumin 2.4 g/dl (3.5-5.0); Alkaline Phosphatase 49 U/L (38-126); Blood Urea Nitrogen 28 mg/dl (7-17); Calcium 8.1 mg/dl (8.4-10.2); Carbon Dioxide 30 mmol/L (22-30); Chloride 107 mmol/L (98-107); Estimated Creatinine Clearance 62 ml/min; Glucose 249 mg/dl (70-99); Potassium 3.4 mmol/L (3.5-5.1); Sodium 139 mmol/L (135-145); Total Protein 4.4 g/dl (6.3-8.2); eGFR > 60.00
[2025-01-19] MEDS: DECADRON 2 MG IV ×3 (05:49→12:34)
[2025-01-19 07:00] VITALS: BP 124/71
[2025-01-19 07:51] LABS: Glucose - Point of Care 226 mg/dl (70-99)
[2025-01-19] MEDS: TOPROL XL 12.5 MG PO ×2 (08:03→20:47)
[2025-01-19] MEDS: PEPCID 40 MG PO (08:03)
[2025-01-19] MEDS: DELTASONE 5 MG PO (08:03)
[2025-01-19] MEDS: COZAAR 25 MG PO (08:03)
[2025-01-19] MEDS: PROTONIX 40 MG PO (08:03)
[2025-01-19] MEDS: VIBRAMYCIN 100 MG PO ×2 (08:03→20:47)
[2025-01-19] MEDS: VITAMIN D3 (cholecalciferol) 25 MCG PO (08:03)
[2025-01-19] MEDS: LEXAPRO 10 MG PO (08:04)
[2025-01-19] MEDS: LANTUS 0.18 UNITS SC (08:04)
[2025-01-19] MEDS: METHOCARBAMOL 500 MG PO ×3 (08:04→21:22)
[2025-01-19] MEDS: DESENEX/MITRAZOL/ZEASORB 1 APPLIC TOPICAL ×2 (08:04→20:47)
[2025-01-19] MEDS: NOVOLOG FLEXPEN 6 UNITS SC ×2 (08:05→12:33)
[2025-01-19] MEDS: PLAVIX 75 MG PO (08:05)
[2025-01-19] MEDS: NOVOLOG FLEXPEN-LOW RESISTANCE 2 UNITS SC ×2 (08:05→12:33)
--- NOTE | 2025-01-19 08:09 | W.PN.HOSP.TC ---
Today's Communication/Plan
-
Repeat lumbar puncture anticipated today.
Patient was snoring while sleeping when in bed this morning. She had a TASH done 2 years ago, but did not hear back on the results. Starting CPAP.
Her hallucinations have decreased and that she sometimes realizes that the odd things she sees are not real. She is more oriented today. She gets the year correct, whereas she has not been saying the correct year for last few days. She finally
slept well yesterday, which may be associated with her decrease hallucinations.
Assessment / Plan
Assessment / Plan
Impression
Ms. Eliz Obando is a 74-year-old woman with PMH notable for IDDM, HTN, HLD, rheumatoid arthritis, and CVA who presented with confusion and a headache, and suspected to have meningoencephalitis.
First lumbar puncture only obtained 1 mL of bloody CSF. Second lumbar puncture was attempted.
In addition to empiric antibiotics, she was started on dexamethasone 10 mg IV every 6 hours. She developed visual hallucinations. Dexamethasone was decreased and psychiatry was consulted.
Plan
Sepsis with encephalopathy secondary to possible viral source:
- Initial px with altered mental status, AOx1 on neuro exam, headache, and fever on presentation
- Investigations: chest xray shows possible pneumonia but then on CT abdomen pelvis shows more atelectasis. procalcitonin is less than 0.05, so less likely. CT head negative.
:: Blood cultures negative
:: West Nile virus IgM antibody negative
First lumbar puncture only obtained 1 cc bloody CSF
:: CSF analysis: wbc of 18 high, lymphocytes 58%, macrophages 1%, granulocytes 41%, glucose 139, total protein 156, turbid, red, RBC of 5291. Suggests unsuccessful traumatic tap and/or viral cause of encephalitis.
:: CSF culture negative
Repeat LP for meningitis panel, CRAG, VDRL, WNV IgM, anti-NMDAR antibody if sufficient sample
- Decreased the stress dose of dexamethasone to 2 mg iv Q6h to 6 mg iv Q6h
- upgraded to IDDSI4 diet
- PT/OT consulted
Neurology consulted:
� Hold off on EEG. Continue home clopidogrel and atorvastatin. Consider stress dose steroids
:: Brain MRI shows no acute intracranial abnormalities, but limited by motion artifact
Infectious disease consulted
� Continue empiric IV acyclovir and p.o. doxycycline (01/15/2025�). Cefepime discontinued. Ampicillin discontinued. Ceftriaxone discontinued
� Monitor renal function closely while on IV acyclovir
Active hallucinations due to unknown cause:
:: Differential includes steroid induced psychosis, psychosis secondary to viral encephalitis, and an underlying psychiatric disorder or exacerbation of an established psychiatric disorder, due to electrolyte abnormality?
:: Witnessed by infectious disease and physical therapy
- Reduced Decadron dose from 6 mg iv Q6h to 2mg iv Q6h
Psychiatry consulted: Subacute delirium
� Low-dose Seroquel 25 mg p.o. for hallucinations and insomnia
� Pending QTc on EKG (Seroquel, doxycycline, and home Lexapro)
Hypokalemia:
- Repleted as needed
Anemia of chronic disease:
Hemoglobin 8-9, baseline appears to be 11
Upper endoscopy July 2024: Negative for H. pylori, esophagitis, and celiac. Lino gland hyperplasia
- trend H/H q 24 hr
- Pantoprazole 40 mg p.o. daily
- type and screen and transfuse for hgb < 7
� Iron studies consistent with anemia of chronic disease in 12/09/2024
Black tarry stool overnight.
- Heme test stool pending
Type 2 diabetes mellitus:
:: A1c 6.7%
Diabetic nurse practitioner consulted
� After diet advanced from n.p.o. to IDDSI 4, now on 18 units glargine, 6 units AC.
� Metformin 500 mg p.o. twice daily held since admission. Brain MRI and head CT obtained. Creatinine at baseline 0.8 since admission.
Essential hypertension:
- Home losartan 25 mg p.o. daily resumed
- continue metoprolol tartrate with hold parameters
History of CVA
- Home clopidogrel 75 mg daily and atorvastatin 40 mg every afternoon resumed
Rheumatoid arthritis
- Resumed home prednisone 5 p.o. daily
- Stress-dose steroids with dexamethasone 2 mg q6h IV
� Patient has an orthopedic surgery scheduled in early February for her left shoulder, which may need to be postponed due to suspected meningitis/encephalitis. The surgery is with Dr. Jcarlos Campos at [facility]
Suspected TASH
- CPAP 5 cm H2O
DVT PPX - lovenox sq
Code status - Full Code
Anticipated Discharge: > 48 hours
Subjective/Interval History
-
Date of Service: January 19, 2025
No acute events overnight.
Patient was snoring while sleeping when in bed this morning. She had a TASH done 2 years ago, but did not hear back on the results. Starting CPAP.
Her hallucinations have decreased and that she sometimes realizes that the odd things she sees are not real. She is more oriented today. She gets the year correct, whereas she has not been saying the correct year for last few days. She finally
slept well yesterday, which may be associated with her decrease hallucinations.
Objective Data
-
Labs:
Laboratory Results
01/19/25
04:15
WBC 5.6
Hgb 8.6 L
Hct 26.3 L
Plt Count 142
Sodium 139
Potassium 3.4 L
Chloride 107
Carbon Dioxide 30
BUN 28 H
Creatinine 0.9
Glucose 249 H
Calcium 8.1 L
Total Bilirubin 0.2
AST 15
ALT 14
Alkaline Phosphatase 49
Vital Signs:
Vital Signs
Temp Pulse Resp BP Pulse Ox
97.5 F 98 16 124/71 99
01/19/25 07:00 01/19/25 07:00 01/19/25 07:00 01/19/25 07:00 01/19/25 07:00
I&O
01/18/25 01/19/25 01/20/25
06:59 06:59 06:59
Intake Total 2250 / 0 1140 / 1140
Balance 2250 / 2250 1140 / 1140
Review of Systems
-
History Source: Patient and Family
All other systems: Reviewed and negative
Physical Exam
-
General: Well Developed, Well Nourished, No Apparent Distress, Comfortable and Conversant
HEENT: Normocephalic, Atraumatic, Anicteric, No Ptosis, Nose Appears Normal and Ears Appear Normal
Respiratory: Clear to Auscultation
Cardiac: Regular Rhythm, S1/S2, Murmur (Systolic) and Tachycardic (Sinus tachycardia)
GI: Soft, Nontender, Nondistended and Normal Bowel Sounds
Musculoskeletal: No Clubbing, No Cyanosis and No Edema
Skin: Warm and Dry
Psych: Calm
--- NOTE | 2025-01-19 08:19 | W.PN.UPDATE ---
Update Note
Progress Note Update
I saw and evaluated the patient. I reviewed the resident�s note and agree with findings and plan as documented in the resident�s note.
No new complaints.
Gen: remains NAD, AAOx3.
Eyes: EOMI, PERRLA, no scleral icterus.
Neck: supple.
CV: remains tachycardic, regular rhythm, +S1/S2, no m/r/g.
Resp: remains CTAB, no rales, wheezes, or rhonchi.
Abd: +BS, soft, NT, ND
Skin: No rashes.
Neuro: CN 2-12 intact, non-focal.
Psych: Normal mood and affect.
01/14/25 19:46 Blood/Venous Blood Culture - Preliminary
No Growth in 4 days- Final report to follow
01/14/25 17:51 Blood/Venous Blood Culture - Preliminary
No Growth in 4 days- Final report to follow
01/15/25 15:14 Csf CSF Culture - Preliminary
No Growth After 72 Hours
01/15/25 15:14 Csf Gram Stain - Final
01/14/25 17:22 Urine Urine Culture - Final
01/15/25 08:27 Nose Nasal Screen MRSA (PCR) - Final
MRSA not detected - performed by PCR methodology.
01/14/25 17:51 Nasal Swab Influenza Types A & B (TERRI) - Final
Negative for Influenza A & B, NAAT
Negative results must be combined with clinical observations
and patient history.
Nucleic Acid Amplification test (NAAT)performed on the
[employer] platform.
MRI brain: Exam limited by motion artifact. Within these limitations: No acute intracranial abnormality noted.
CT A/P:
1. Mild acute stercoral colitis and fecal impaction in the rectum.
2. Moderate to severe chronic bilateral renal disease.
3. Very severe calcific atherosclerotic plaque in the abdominal aorta, femoral, and visceral arteries.
4. Small hiatal hernia.
5. Mild cardiomegaly.
6. Severe discogenic degenerative disease at L5/S1.
CXR:
1. Moderate airspace opacity in the posterior basilar left lower lobe. Diagnostic possibilities are (1) left lower lobe pneumonia or (2) scarring and subsegmental atelectasis.
2. Mild cardiomegaly.
3. Mildly decreased lung volumes.
4. Cement spacer in the left proximal humerus.
Sepsis and acute metabolic encephalopathy:
-likely due to encephalitis given neuro exam, headache, fever
-s/p LP, only 1cc obtained and RBC 5291 so likely traumatic tap. WBC 18, gluc/prot elevated, CSF Cx NGTD
-currently on empiric abx/antivirals for meningitis, Rocephin/Acyclovir/Doxy
-currently on stress dose steroids, currently being weaned
-hallucinations likely multifactorial due to acute encephalitis, steroids, and a lack of sleep. Appreciated psych, Dx subacute delirium, Seroquel PRN.
Other problems:
Acute non-AG met acidosis, resolved with IVFs with bicarb
Acute anemia on anemia of chronic disease: likely dilutional, trend Hb
DM2: a1c 6.7%, cont Lantus/premeal Novolog/SSI/accuchecks, diabetes [employer]PER[employer] following
Essential HTN: cont BB/Losartan
h/o CVA: cont Plavix/statin
RA: currently tapering stress dose steroids
Hypokalemia, replete
FULL/lovenox
[2025-01-19] MEDS: GLUCOPHAGE 500 MG PO ×2 (09:02→17:35)
[2025-01-19] MEDS: KCL 40 MEQ PO (10:39)
[2025-01-19] MEDS: NSS (PRESERVATIVE FREE) 0.25 ML IV (10:39)
[2025-01-19] MEDS: ATIVAN 0.5 MG IV (10:40)
--- NOTE | 2025-01-19 10:43 | W.PN.ID1 ---
Date of Service
Date of Service: January 19, 2025
Today's Communication
await LP
Encephalitis is difficult to diagnose and the majority of cases do not have a specific etiology identified. We are attempting to rule out treatable causes. She has substantially improved since arrival - unclear if this improvement is a response to
therapy or healing with the passage of time.
Assessment / Plan
Encephalopathy/encephalitis, improving
Fever resolved
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
- Procalcitonin negative
- Bcx's neg to date
- 01/15 Unsuccessful LP with traumatic tap 1cc fluid: 18WBC, 5291 RBC, 58% lymphocytes, 156 protein, gram stain neg, cx neg to date
- repeat LP pending for meningitis panel, CRAG, VDRL, WNV IgM, anti-NMDAR antibody if sufficient sample
- Serum WNV IgM negative; anti-NMDAR antibody serum as well
- ehrlichia, anaplasma, lyme serologies
- FTA
- MRI brain: limited study but no acute abnormality.
- continue IV acyclovir
- continue doxycycline
- Remains on dexamethasone as stress dose steroids per IM service
- Monitor renal function closely while on IV acyclovir.
Encephalitis is difficult to diagnose and the majority of cases do not have a specific etiology identified. We are attempting to rule out treatable causes. She has substantially improved since arrival - unclear if this improvement is a response to
therapy or healing with the passage of time.
Chief Complaint
-: Fever and Other (Change in mental status.)
Subjective / Review of Systems
remains afebrile
bp stable
family reporting fewer hallucinations this AM
now oriented to person, place and time
Vital Signs / Physical Exam
Vital Signs
Vital Signs
Temp Pulse Resp BP Pulse Ox
97.5 F 98 16 124/71 99
01/19/25 07:00 01/19/25 07:00 01/19/25 07:00 01/19/25 07:00 01/19/25 07:00
Physical Exam
Constitutional: No Acute Distress
Cardiovascular: Regular Rate and S1/S2; Negative Murmur or Rub
Pulmonary: Clear and Symmetric; Negative Wheezes or Rales
Gastrointestinal: Soft, Non Tender, Non Distended and Normal Bowel Sounds
Skin: Warm and Dry; Negative Rash or Jaundice
Objective Data
Lab Data
Lab Results
01/19/25 04:15
01/19/25 04:15
PT 13.5 Sec (11.4-14.6) 01/15/25 11:45
INR 1.00 01/15/25 11:45
Estimated Creat Clear 62 ml/min 01/19/25 04:15
Lactic Acid 1.5 mmol/L (0.7-2.0) 01/15/25 00:27
Total Bilirubin 0.2 mg/dl (0.2-1.3) 01/19/25 04:15
AST 15 U/L (14-36) 01/19/25 04:15
ALT 14 U/L (0-35) 01/19/25 04:15
Alkaline Phosphatase 49 U/L (38-126) 01/19/25 04:15
Most recent labs reviewed.
Micro Results:
01/14/25 19:46 Blood Culture - Preliminary
Blood/Venous No Growth in 4 days- Final report to follow
01/14/25 17:51 Blood Culture - Preliminary
Blood/Venous No Growth in 4 days- Final report to follow
01/15/25 15:14 CSF Culture - Preliminary
Csf No Growth After 72 Hours
Gram Stain - Final
01/14/25 17:22 Urine Culture - Final
Urine
01/15/25 08:27 Nasal Screen MRSA (PCR) - Final
Nose MRSA not detected - performed by PCR methodology.
01/14/25 17:51 Influenza Types A & B (TERRI) - Final
Nasal Swab Negative for Influenza A & B, NAAT
Negative results must be combined with clinical observations
and patient history.
Nucleic Acid Amplification test (NAAT)performed on the
[employer] platform.
01/16/25 Brain MRI: Exam limited by motion artifact. Within these limitations: No acute intracranial abnormality noted.
Care Review
Plan reviewed with: Physician (Dr Jensen - IZABELA)
[2025-01-19 11:54] LABS: Glucose - Point of Care 223 mg/dl (70-99)
--- NOTE | 2025-01-19 13:25 | W.PN.NEURO.1 ---
Addendum entered and electronically signed by Vance Quintana MD 01/19/25 19:44:
I saw and examined the patient today along with the nurse practitioner Aubrie Arciniega, and I agree with her assessment and the management plan. Given below is my addendum.
I have seen and examined the patient today along with the nurse practitioner Aubrie Arciniega and I agree with her assessment and the management plan. Given below is my addendum.
The is a 74 years old female who presented with an acute change in mental status. Her mental status has improved significantly, however she is still not back to her baseline as per her , but she is better than yesterday as per her .
There is no history to suggest a seizure.
The patient is alert and oriented x3. Her speech is clear.
The patient has been seen by ID who suggested to repeat the LP. The ID also suggested to continue with acyclovir and doxycycline. but to stop ceftriaxone.
There is a concern for meningitis/encephalitis. Seizure appears to be less likely.
The patient has been seen by psychiatry also.
The MRI of the brain did not show any acute intracranial abnormality.
The patient's was present at the bedside to provide history.
Original Note:
Today's Communication / Plan
-
.
Neuro Assessment/Plan
Assessment
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
Differential diagnosis includes meningitis/encephalitis and toxic metabolic encephalopathy. MRI was negative for stroke. Seizure is less likely given no seizure acitvity noted and there has been a significant improvement in mental status.
Plan
EEG is still unlikely to be helpful at this time, as she continues to improve.
Continue clopidogrel
Continue atorvastatin
Goal of normoglycemia
Goal of normotension
Attempt to reduce exposure to sedative agents
Antibiotic coverage as per primary service and infectious disease
Repeat LP today per ID.
DVT prophylaxis.
Subjective/Objective
Subjective Data
Date of Service: January 19, 2025
No acute events overnight. Patient continues to improve cognitively, oriented x3 today.
Objective Data
Vital Signs
Temp Pulse Resp BP Pulse Ox
97.5 F 98 16 124/71 99
01/19/25 07:00 01/19/25 07:00 01/19/25 07:00 01/19/25 07:00 01/19/25 07:00
Lab Results
01/19/25 04:15
01/19/25 04:15
PT 13.5 Sec (11.4-14.6) 01/15/25 11:45
INR 1.00 01/15/25 11:45
Sodium 139 mmol/L (135-145) 01/19/25 04:15
Potassium 3.4 mmol/L (3.5-5.1) L 01/19/25 04:15
BUN 28 mg/dl (7-17) H 01/19/25 04:15
Glucose 249 mg/dl (70-99) H 01/19/25 04:15
Calcium 8.1 mg/dl (8.4-10.2) L 01/19/25 04:15
Vitamin B12 794 pg/ml (239-931) 01/15/25 08:56
Patient Allergies
cefaclor Allergy (Verified 01/14/25 17:19)
tolerating cefepime 04/14/22
ciprofloxacin Allergy (Verified 01/14/25 17:19)
Rash
clindamycin Allergy (Verified 01/14/25 17:19)
Rash
erythromycin base Allergy (Verified 01/14/25 17:19)
Rash
melatonin Allergy (Verified 01/15/25 17:01)
pt 'spaces out'
Sulfa (Sulfonamide Antibiotics) Allergy (Verified 01/14/25 17:19)
Rash
vancomycin Allergy (Verified 01/14/25 17:19)
Rash
'all antibx except for keflex&PCN' Allergy (Uncoded 01/14/25 17:19)
Unknown
Review of Systems
-
Musculoskeletal: Negative Neck Pain
Neuro: Negative Headache
Physical Exam
-
General: No Apparent Distress
Eyes: No Ptosis
HEENT: Normocephalic and Atraumatic
Neck: Full Range of Motion
Respiratory: No Dyspnea
Extended Neurological Exam
Mood & Affect: Mood Unremarkable and Affect Unremarkable
Attention Span & Concentration: Awake, Alert and Interactive
Memory: Able to Recall (AAOx3)
Tremor: Hand Tremor Absent and Head Tremor Absent
Involuntary Movement: None
Speech: Quality Unremarkable, Quantity Unremarkable and Rate of Production Unremarkable
Cranial Nerves III, IV, : Extraocular Movement: Extraocular Movement Full in all Directions
Cranial Nerve VII: Facial Symmetry: Normal Facial Symmetry
Cranial Nerve VIII: Hearing: Unremarkable Hearing to Normal Conversational Volume
Muscle Strength, Overall: Reduced on Left (LUE proximal strength absent due to no shoulder joint)
Coordination: [id number] Testing Unremarkable (on the right, LINDEN LUE)
Data Reviewed
-
MRI Head: Report Reviewed and Image Reviewed
Medical Test Reports: Report Reviewed (CSF)
Labs: Report Reviewed
Reviewed with: Physician, Patient and Family
Medications
-
Active Medications
Generic Name Dose Route Start Last Admin
Trade Name Freq PRN Reason Stop Dose Admin
Acetaminophen 650 mg 01/15/25 06:00
Acetaminophen 325 Mg Tablet PO 02/12/25 05:59
Q4HPRN PRN
mild pain/ELENA/temp>100.5
Albuterol/Ipratropium 3 ml 01/15/25 01:50
Ipratropium 0.5/Albuterol 3 Mg (3 Ml Ampul) INH
R Q4HPRN PRN
sob/wheeze
Protocol
Atorvastatin Calcium 40 mg 01/18/25 18:00 01/18/25 17:31
Atorvastatin (Lipitor) 40 Mg Tablet PO 02/15/25 17:59 40 mg
QPM DEON Administration
Ceftriaxone Sodium 2,000 mg 01/15/25 14:00 01/19/25 13:08
Ceftriaxone 2,000 Mg/20 Ml Vial IV 2,000 mg
Q12H DEON Administration
Cholecalciferol 25 mcg 01/15/25 08:00 01/19/25 08:03
Cholecalciferol (Vitamin D3) 25 Mcg Tablet (1,000 Units) PO 02/12/25 07:59 25 mcg
DAILY DEON Administration
Clopidogrel Bisulfate 75 mg 01/15/25 08:00 01/19/25 08:05
Clopidogrel 75 Mg Tablet PO 02/12/25 07:59 75 mg
DAILY DEON Administration
Dextrose 12.5 grams 01/17/25 15:00
Dextrose 50% (0.5 Grams/Ml) 50 Ml Syringe IV 02/14/25 14:59
[id number] PRN
hypoglycemia
Protocol
Doxycycline Hyclate 100 mg 01/18/25 20:00 01/19/25 08:03
Doxycycline 100 Mg Capsule PO 100 mg
BID DEON Administration
Enoxaparin Sodium 40 mg 01/15/25 18:00 01/18/25 17:28
Enoxaparin Sodium 40 Mg/0.4 Ml Syringe SC 02/12/25 17:59 40 mg
QPM DEON Administration
Escitalopram Oxalate 10 mg 01/15/25 08:00 01/19/25 08:04
Escitalopram 5 Mg Tablet PO 02/12/25 07:59 10 mg
DAILY DEON Administration
Famotidine 40 mg 01/15/25 08:00 01/19/25 08:03
Famotidine 20 Mg Tablet PO 02/12/25 07:59 40 mg
DAILY DEON Administration
Glucagon 1 mg 01/17/25 15:00
Glucagon 1 Mg Vial IM 02/14/25 14:59
PRN PRN
hypoglycemia
Protocol
Acyclovir Sodium 850 mg/ 267 mls @ 250 mls/hr 01/16/25 18:00 01/19/25 09:02
Sodium Chloride IV 01/26/25 17:59 267 mls
Q8H DEON Administration
Insulin Glargine 22 units/ 0.22 mls @ 0 mls/hr 01/19/25 08:34
Device SC 02/16/25 08:29
DAILY DEON
As Directed
Insulin Aspart 0 units 01/17/25 16:30 01/19/25 12:33
Insulin Aspart Low Resistance 300 Units/3 Ml Pen.Injctr SC 02/14/25 16:29 2 units
AC DEON Administration
Protocol
Insulin Aspart 8 units 01/19/25 16:30
Insulin Aspart (Novolog) 100 Units/Ml 3 Ml Flexpen SC 02/16/25 16:29
AC DEON
Losartan Potassium 25 mg 01/18/25 10:25 01/19/25 08:03
Losartan 25 Mg Tablet PO 02/15/25 10:24 25 mg
DAILY DEON Administration
Metformin HCl 500 mg 01/19/25 17:00
Metformin 500 Mg Regular Release Tablet PO 02/16/25 16:59
BID@0800,1700 DEON
Methocarbamol 500 mg 01/15/25 08:00 01/19/25 08:04
Methocarbamol 500 Mg Tablet PO 02/12/25 07:59 500 mg
TID DEON Administration
Methocarbamol 500 mg 01/15/25 01:50
Methocarbamol 500 Mg Tablet PO 02/12/25 01:49
TIDPRN PRN
muscle spasam
Metoprolol Succinate 12.5 mg 01/15/25 08:00 01/19/25 08:03
Metoprolol 12.5 Mg Extended Release Dose (1/2 Of 25 Mg Xl Tablet) PO 02/12/25 07:59 12.5 mg
BID DEON Administration
Metoprolol Tartrate 5 mg 01/16/25 14:02 01/16/25 21:16
Metoprolol 5 Mg/5 Ml Vial IV 02/13/25 13:59 5 mg
Q6HPRN PRN Administration
HR > 120 sustained
Miconazole Nitrate 0 applic 01/16/25 20:00 01/19/25 08:04
Miconazole Powder Bottle TOPICAL 02/13/25 19:59 1 applic
BID DEON Administration
Morphine Sulfate 1 mg 01/15/25 22:35 01/16/25 20:54
Morphine 2 Mg/Ml Syringe IV 01/29/25 22:34 1 mg
Q4HPRN PRN Administration
severe pain
Pantoprazole Sodium 40 mg 01/19/25 08:00 01/19/25 08:03
Pantoprazole 40 Mg Delayed Release Tablet PO 02/16/25 07:59 40 mg
DAILY DEON Administration
Prednisone 5 mg 01/15/25 08:00 01/19/25 08:03
Prednisone 5 Mg Tablet PO 02/12/25 07:59 5 mg
DAILY DEON Administration
Sodium Chloride 0 flush 01/15/25 04:00 01/16/25 01:28
Sodium Chloride 0.9% (Flush) Syringe IV 02/12/25 03:59 1 flush
PER PROTOCOL DEON Administration
Sterile Water 20 ml 01/15/25 14:00 01/19/25 13:08
Sterile Water For Injection 20 Ml Vial IV 02/12/25 13:59 20 ml
Q12H DEON Administration
Tramadol HCl 50 mg 01/15/25 01:50
Tramadol Hcl 50 Mg Tablet PO 02/12/25 01:49
Q6HPRN PRN
severe pain
Home Medications
�Medication �Instructions �Recorded
cholecalciferol (vitamin D3) 25 25 mcg PO DAILY #90 tabs 05/15/22
mcg (1,000 unit) tablet
clopidogrel 75 mg tablet 75 mg PO DAILY #90 tabs 05/15/22
escitalopram oxalate 5 mg tablet 10 mg (2 x 5 mg) PO DAILY #90 tabs 05/15/22
famotidine 40 mg tablet 40 mg PO DAILY #90 tabs 05/15/22
losartan 25 mg tablet 25 mg PO DAILY #90 tabs 05/15/22
metformin 500 mg tablet 500 mg PO BID@0800,1700 #180 tabs 05/15/22
tramadol 50 mg tablet 50 mg PO Q6HPRN PRN severe pain 05/15/22
#20 tabs
anakinra 100 mg/0.67 mL 100 mg SC DAILY Autoimmune Disorder 01/14/25
subcutaneous syringe (Kineret)
atorvastatin 80 mg tablet 40 mg PO QPM High Cholesterol 01/14/25
cranberry fruit concentrate 250 mg 250 mg PO TID Supplement 01/14/25
chewable tablet (Azo Cranberry)
glucosamine sulf dipot See Rx Instructions .Route 01/14/25
chlr,msm,chond 550 mg-C 30 mg-heather .COMPLEX Supplement
1 mg capsule (Glucosamine
Chondroitin)
insulin aspart U-100 100 unit/mL 2 sliding scale dose SC 01/14/25
(3 mL) subcutaneous pen (Novolog DIRECTED Diabetes
FlexPen U-100 Insulin aspart)
insulin glargine 100 unit/mL (3 18 unit SC DAILY Diabetes 01/14/25
mL) subcutaneous pen (Lantus
Solostar U-100 Insulin)
prednisone 5 mg tablet 5 mg PO DAILY Anti-Inflammatory 01/14/25
vitamin B12 1,000 mcg-folic acid 1,000 tab sublingual DAILY 01/14/25
400 mcg sublingual tablet Supplement
acetaminophen 500 mg tablet 1,000 mg PO Q6HPRN PRN mild pain 01/15/25
(Tylenol Extra Strength)
metoprolol succinate 25 mg 12.5 mg PO BID Heart 01/15/25
tablet,extended release 24 hr Disease/Condition
(Toprol XL)
--- NOTE | 2025-01-19 13:33 | PN.DE.MGMTRT ---
Insulin Management
- -
01/19/2025: Diabetes Management Follow up
74 year old female who abruptly developed headache, confusion, chills and vomiting yesterday
PMH: RA (on a TNFalphaI anakinra, prednisone 5 mg)
Since arrival here she has been spiking fevers to a max of 102.6 rectally
Spoke to pt's and daughter- report pt was taking NovoLog 2units AC, Lantus 24 units daily in AM and Metformin 500mg BID.
Pt uses CGM- Dexcom G7 and routinely sees her PCP JANETT Kulkarni for diabetes care. A1C 6.9%, Cr 0.7, eGFR >60.
Pt sleeping at the time of my visit; daughter and at bedside, prefer she not be awakened. Reviewed diabetes care plan with .
Started stress dose steroids on 01/16. Received last dose of Dexa 2mg IV Q6 hrs at 12 noon today. Glucose range yesterday 254 to 373 received 18 units lantus in AM with 6 units novolog AC, required 1-4 units of corrective insulin.
AM lantus has already been administered, will increase 01/20 dose to 22 units and increase AC novolog to 8 units AC and restart metformin 500 mg BID.
Cont low corrective insulin with meal. Modify diet to 1800 raudel puree diet.
Family reports the DexCom can be 60 points different than fingerstick glucose. Discussed and demonstrated in Ra with family purpose of calibrating sensor with fingerstick glucose. They were unaware of potential to calibrate.
Discussed with Nurse. Will cont to follow
Diabetes History
- -
Type of Diabetes: 2 requiring insulin
Pre-Admission Diabetes Regimen
01/19/25
04:15
Creatinine 0.9
Lab Results
Hemoglobin A1c 6.7 % (4.0-5.9) H 01/18/25 04:20
Insulin Pump Settings
IP Diabetes Regimen
01/18/25 01/18/25 01/19/25
16:36 21:46 04:15
Glucose 249 H
POC Glucose 287 H 254 H
01/19/25 01/19/25
07:50 11:53
Glucose
POC Glucose 226 H 223 H
Meal type: Lunch
Meal type: Breakfast
Amount consumed: 100%
Amount consumed: 100%
Patient Education
[2025-01-19 13:56] VITALS: BP 144/44; BP_SYST 108
--- NOTE | 2025-01-19 13:56 | CM ---
Patient seen earlier today at bedside, CM spoke with daughter and additional referrals sent to [facility], [facility], [facility] and [facility]. [facility] has a bed for patient but family now wants alternative locations. CM will
continue to follow for discharge planning needs.
Plan; SNF referrals sent awaiting response.
[2025-01-19 15:45] VITALS: BP 128/59
[2025-01-19 16:00] VITALS: BP 101/60
[2025-01-19 16:39] LABS: Glucose - Point of Care 308 mg/dl (70-99)
[2025-01-19] MEDS: LIPITOR 40 MG PO (17:35)
[2025-01-19] MEDS: LOVENOX 40 MG SC (17:35)
[2025-01-19] MEDS: NOVOLOG FLEXPEN-LOW RESISTANCE 4 UNITS SC (17:37)
[2025-01-19] MEDS: NOVOLOG FLEXPEN 8 UNITS SC (17:37)
--- NOTE | 2025-01-19 18:59 | W.PN.UPDATE ---
Update Note
Progress Note Update
attempted to see pt this am; sleeping soundly. daughter and at bedside, they report she has been sleeping better at night, and during daytime more aware when she says things which are odd ('no, that's not right') had apparent tarry stool
overnight, Hgb moving downward, team aware.. Getting LP today, awaiting results
[2025-01-19 21:46] VITALS: PULSE 96
[2025-01-19 21:48] LABS: Glucose - Point of Care 183 mg/dl (70-99)
[2025-01-19 23:00] VITALS: BP 145/77
[2025-01-20] MEDS: ROCEPHIN 2000 MG IV (01:44)
[2025-01-20] MEDS: STERILE WATER FOR INJECTION 20 ML IV (01:45)
[2025-01-20] MEDS: ZOVIRAX INJECTION 267 MG IV ×2 (01:45→09:12)
[2025-01-20 06:04] LABS: Hematocrit 28.8 % (37.0-47.0); Hemoglobin 9.2 g/dL (12.0-16.0); Mean Corp Hgb Conc. 31.9 g/dL (33.0-37.0); Mean Corpuscular Volume 94.1 fL (81.0-99.0); Platelet Count 146 10^3/uL (130-400); Red Cell Dist. Width 14.5 % (11.5-14.5)
[2025-01-20 06:43] LABS: ALT (SGPT) 17 U/L (0-35); AST (SGOT) 20 U/L (14-36); Albumin 2.6 g/dl (3.5-5.0); Alkaline Phosphatase 42 U/L (38-126); Blood Urea Nitrogen 32 mg/dl (7-17); Calcium 8.4 mg/dl (8.4-10.2); Carbon Dioxide 26 mmol/L (22-30); Chloride 109 mmol/L (98-107); Estimated Creatinine Clearance 55 ml/min; Glucose 122 mg/dl (70-99); Potassium 3.3 mmol/L (3.5-5.1); Sodium 137 mmol/L (135-145); Total Protein 4.9 g/dl (6.3-8.2); eGFR 59.49
--- NOTE | 2025-01-20 07:28 | PN.DE.MGMTRT ---
Insulin Management
- -
01/20/2025: Diabetes Management Follow up
74 year old female who abruptly developed headache, confusion, chills and vomiting yesterday
PMH: RA (on a TNFalphaI anakinra, prednisone 5 mg)
Since arrival here she had fevers to a max of 102.6 rectally, now oral temp in normal range.
Spoke to pt's and daughter- report pt was taking NovoLog 2units AC, Lantus 24 units daily in AM and Metformin 500mg BID.
Pt uses CGM- Dexcom G7 and routinely sees her PCP MARY Kulkarni for diabetes care. A1C 6.9%, Cr 0.7, eGFR >60.
Pt sleeping at the time of my visit; daughter and at bedside, prefer she not be awakened. Reviewed diabetes care plan with .
Started stress dose steroids on 01/16. Received last dose of Dexa 2mg IV Q6 hrs at 12 noon yesterday, now receiving prednisone 5 mg po daily. Glucose range yesterday 183 to 308.
Will increase AM lantus to 20 units and continue AC novolog 8 units with low corrective insulin with metformin 500 mg BID.
Family reports the DexCom can be 60 points different than fingerstick glucose. Discussed and demonstrated in Ra with family purpose of calibrating sensor with fingerstick glucose. They were unaware of potential to calibrate.
Discussed with Nurse. Will cont to follow
Diabetes History
- -
Type of Diabetes: 2 requiring insulin
Pre-Admission Diabetes Regimen
01/20/25
05:53
Creatinine 1.0
Lab Results
Hemoglobin A1c 6.7 % (4.0-5.9) H 01/18/25 04:20
Insulin Pump Settings
IP Diabetes Regimen
01/19/25 01/19/25 01/19/25
07:50 11:53 16:37
Glucose
POC Glucose 226 H 223 H 308 H
01/19/25 01/20/25
21:46 05:53
Glucose 122 H
POC Glucose 183 H
Meal type: Lunch
Meal type: Breakfast
Amount consumed: 80%
Amount consumed: 95%
Patient Education
[2025-01-20 07:45] VITALS: BP 171/101
[2025-01-20 08:01] LABS: Glucose - Point of Care 119 mg/dl (70-99)
--- NOTE | 2025-01-20 08:14 | W.PN.HOSP.TC ---
Today's Communication/Plan
-
Repeat LP performed yesterday successfully without complications (8 ml CSF obtained). Meningitis panel negative. Pending other CSF studies.
Weaned off dexamethasone. Patient's reported polyuria is likely due to hyperglycemia from stress dose dexamethasone and taper.
Patient is A&O x 4 today. She reported she slept well last night. She was still sleepy this morning and would doze off during conversation, despite a good night of sleep.
Assessment / Plan
Assessment / Plan
Impression
Ms. Eliz Obando is a 74-year-old woman with PMH notable for IDDM, HTN, HLD, rheumatoid arthritis, and CVA who presented with confusion and a headache, and suspected to have meningoencephalitis.
First lumbar puncture only obtained 1 mL of bloody CSF. Second lumbar puncture was attempted.
In addition to empiric antibiotics, she was started on dexamethasone 10 mg IV every 6 hours. She developed visual hallucinations, thought to be due to lack of sleep and dexamethasone. Dexamethasone was decreased and psychiatry was consulted.
Plan
Sepsis with encephalopathy secondary to possible viral source:
- Initial px with altered mental status, AOx1 on neuro exam, headache, and fever on presentation
- Investigations: chest xray shows possible pneumonia but then on CT abdomen pelvis shows more atelectasis. procalcitonin is less than 0.05, so less likely. CT head negative.
:: Blood cultures negative
:: West Nile virus IgM antibody negative
First LP only obtained 1 cc bloody CSF
:: CSF analysis: wbc of 18 high, lymphocytes 58%, macrophages 1%, granulocytes 41%, glucose 139, total protein 156, turbid, red, RBC of 5291. Suggests unsuccessful traumatic tap and/or viral cause of encephalitis.
:: CSF culture negative
Repeat LP obtained to 80 cc CSF.
� Meningitis panel negative
� CRAG, VDRL, WNV IgM, anti-NMDAR antibody pending
- S/p stress dose 10 mg dexamethasone every 6 hours. Weaned off
- upgraded to [id number] diet
- PT/OT consulted
Neurology consulted:
� Hold off on EEG. Continue home clopidogrel and atorvastatin. Consider stress dose steroids
:: Brain MRI shows no acute intracranial abnormalities, but limited by motion artifact
Infectious disease consulted
� Continue empiric IV acyclovir and p.o. doxycycline (01/15/2025�). Cefepime discontinued. Ampicillin discontinued. Ceftriaxone discontinued
� Monitor renal function closely while on IV acyclovir
Active hallucinations due to unknown cause:
:: Differential includes steroid induced psychosis, psychosis secondary to viral encephalitis, and an underlying psychiatric disorder or exacerbation of an established psychiatric disorder, due to electrolyte abnormality?
:: Witnessed by infectious disease and physical therapy
- Reduced Decadron dose from 6 mg iv Q6h to 2mg iv Q6h
Psychiatry consulted: Subacute delirium
� Low-dose Seroquel 25 mg p.o. for hallucinations and insomnia
� Pending QTc on EKG (Seroquel, doxycycline, and home Lexapro)
Type 2 diabetes mellitus:
:: A1c 6.7%
:: On 18 units glargine, 2 units AC at home
:: Started stress dose steroids on 01/16. On Dexa 2mg IV Q6 hrs. Glucose range yesterday 254 to 373. Received 18 units lantus in AM with 6 units novolog AC, required 1-4 units of corrective insulin.
Diabetic nurse practitioner consulted
� Increased to a.m. glargine 20 units and AC NovoLog 8 units with low corrective insulin
� Metformin 500 mg p.o. twice daily resumed
� On 1800-calorie pureed diet.
Family reports the DexCom can be 60 points different than fingerstick glucose. Discussed and demonstrated in Ra with family purpose of calibrating sensor with fingerstick glucose. They were unaware of potential to calibrate.
Anemia of chronic disease:
Hemoglobin 8-9, baseline appears to be 11
Upper endoscopy July 2024: Negative for H. pylori, esophagitis, and celiac. Lino gland hyperplasia
Iron studies consistent with anemia of chronic disease in 12/09/2024
- trend H/H q 24 hr
- Started pantoprazole 40 mg p.o. daily
- type and screen and transfuse for hgb < 7
Black tarry stool open/02/02 overnight.
- Heme test stool pending
Hypokalemia:
- Repleted as needed
Essential hypertension:
- Home losartan 25 mg p.o. daily resumed
- continue metoprolol tartrate with hold parameters
SBP 171 on 01/2025 while patient was sleeping. Asymptomatic
History of CVA
- Home clopidogrel 75 mg daily and atorvastatin 40 mg every afternoon resumed
Rheumatoid arthritis
- Resumed home prednisone 5 p.o. daily
- Stress-dose steroids with dexamethasone 2 mg q6h IV
� Patient has an orthopedic surgery scheduled in early February for her left shoulder, which may need to be postponed due to suspected meningitis/encephalitis. The surgery is with Dr. Jcarlos Campos at [facility]
Suspected TASH
- CPAP 5 cm H2O
DVT PPX - lovenox sq
Code status - Full Code
Anticipated Discharge: 24 - 48 hours
Subjective/Interval History
-
Date of Service: January 20, 2025
No acute events overnight. This morning, patient's pressure while sleeping was 171/101. She was asymptomatic.
The patient only complaint of frequent urination. She denied dysuria. I explained that the polyuria may be due to hyperglycemia with her stress dose steroids and taper. Polyuria should resolve as she is weaned off dexamethasone. We are
continuing her home prednisone 5 mg daily for her rheumatoid arthritis.
Patient felt that the procedure went well. She denied complications. She feels lower back pain, but it is manageable and she does not need pain medication for it at this time.
Patient is A&O x 4 today. She reported she slept well last night. She was still sleepy this morning and would doze off during conversation, despite a good night of sleep.
Objective Data
-
Labs:
Laboratory Results
01/20/25
05:53
WBC 10.5
Hgb 9.2 L
Hct 28.8 L
Plt Count 146
Sodium 137
Potassium 3.3 L
Chloride 109 H
Carbon Dioxide 26
BUN 32 H
Creatinine 1.0
Glucose 122 H
Calcium 8.4
Total Bilirubin 0.5
AST 20
ALT 17
Alkaline Phosphatase 42
Vital Signs:
Vital Signs
Temp Pulse Resp BP Pulse Ox
97.5 F 99 17 171/101 97
01/20/25 07:45 01/20/25 07:45 01/20/25 07:45 01/20/25 07:45 01/20/25 07:45
I&O
01/19/25 01/20/25 01/21/25
06:59 06:59 06:59
Intake Total 1140 / 1140 600 / 600 490 / 490
Output Total 200 / 200
Balance 1140 / 1140 400 / 400 490 / 490
Review of Systems
-
History Source: Patient
All other systems: Reviewed and negative
Genitourinary: Reports Frequency
Musculoskeletal: Reports Other (Minimal lower back pain)
Physical Exam
-
General: Well Developed, Well Nourished, No Apparent Distress, Comfortable and Conversant
HEENT: Normocephalic, Atraumatic, Moist Mucous Membranes, Anicteric, No Ptosis, Nose Appears Normal and Ears Appear Normal
Respiratory: Clear to Auscultation
Cardiac: Regular Rhythm and S1/S2
GI: Soft, Nontender, Nondistended and Normal Bowel Sounds
Musculoskeletal: No Clubbing, No Cyanosis and No Edema
Skin: Warm and Dry
Neuro: Awake, Alert and AO x 3 (Oriented to year, situation, place, and person)
Psych: Calm
[2025-01-20] MEDS: DELTASONE 5 MG PO (08:23)
[2025-01-20] MEDS: LEXAPRO 10 MG PO (08:23)
[2025-01-20] MEDS: PROTONIX 40 MG PO (08:23)
[2025-01-20] MEDS: KCL 40 MEQ PO (08:23)
[2025-01-20] MEDS: LANTUS 0.2 UNITS SC (08:23)
[2025-01-20] MEDS: GLUCOPHAGE 500 MG PO ×2 (08:24→17:10)
[2025-01-20] MEDS: TOPROL XL 12.5 MG PO (08:24)
[2025-01-20] MEDS: METHOCARBAMOL 500 MG PO ×3 (08:24→23:09)
[2025-01-20] MEDS: VITAMIN D3 (cholecalciferol) 25 MCG PO (08:24)
[2025-01-20] MEDS: PEPCID PO (08:24)
[2025-01-20] MEDS: NOVOLOG FLEXPEN-LOW RESISTANCE SC ×2 (08:24→17:40)
[2025-01-20] MEDS: PEPCID 20 MG PO (08:24)
[2025-01-20] MEDS: PLAVIX 75 MG PO (08:24)
[2025-01-20] MEDS: COZAAR 25 MG PO (08:24)
[2025-01-20] MEDS: DESENEX/MITRAZOL/ZEASORB 1 APPLIC TOPICAL ×2 (08:25→20:57)
[2025-01-20] MEDS: VIBRAMYCIN 100 MG PO ×2 (08:25→20:57)
[2025-01-20] MEDS: NOVOLOG FLEXPEN 8 UNITS SC ×3 (08:25→17:28)
--- NOTE | 2025-01-20 08:33 | W.PN.UPDATE ---
Update Note
Progress Note Update
I saw and evaluated the patient. I reviewed the resident�s note and agree with findings and plan as documented in the resident�s note.
No new complaints.
Gen: NAD, Awake and alert
Eyes: EOMI, PERRLA, no scleral icterus.
Neck: supple.
CV: continues to remain tachycardic, regular rhythm, +S1/S2, no m/r/g.
Resp: CTAB anteriorly, no rales, wheezes, or rhonchi.
Abd: +BS, soft, NT, ND
Skin: No rashes.
Neuro: CN 2-12 intact, non-focal.
Psych: Normal mood and affect.
01/14/25 19:46 Blood/Venous Blood Culture - Final
No Growth - Final Report
01/14/25 17:51 Blood/Venous Blood Culture - Final
No Growth - Final Report
01/19/25 15:30 Csf Meningitis/Encephalitis Panel (PCR) - Final
01/15/25 15:14 Csf CSF Culture - Preliminary
No Growth After 4 Days
01/15/25 15:14 Csf Gram Stain - Final
01/14/25 17:22 Urine Urine Culture - Final
01/15/25 08:27 Nose Nasal Screen MRSA (PCR) - Final
MRSA not detected - performed by PCR methodology.
01/14/25 17:51 Nasal Swab Influenza Types A & B (TERRI) - Final
Negative for Influenza A & B, NAAT
Negative results must be combined with clinical observations
and patient history.
Nucleic Acid Amplification test (NAAT)performed on the
[employer] platform.
MRI brain: Exam limited by motion artifact. Within these limitations: No acute intracranial abnormality noted.
CT A/P:
1. Mild acute stercoral colitis and fecal impaction in the rectum.
2. Moderate to severe chronic bilateral renal disease.
3. Very severe calcific atherosclerotic plaque in the abdominal aorta, femoral, and visceral arteries.
4. Small hiatal hernia.
5. Mild cardiomegaly.
6. Severe discogenic degenerative disease at L5/S1.
CXR:
1. Moderate airspace opacity in the posterior basilar left lower lobe. Diagnostic possibilities are (1) left lower lobe pneumonia or (2) scarring and subsegmental atelectasis.
2. Mild cardiomegaly.
3. Mildly decreased lung volumes.
4. Cement spacer in the left proximal humerus.
Sepsis and acute metabolic encephalopathy:
-likely due to encephalitis given neuro exam, headache, fever
-s/p LP, only 1cc obtained and RBC 5291 so likely traumatic tap. WBC 18, gluc/prot elevated, CSF Cx NGTD
-s/p 2nd LP on 01/19, meningitis PCR panel NEG, VDRL, cryptococcus, West Nile pending
-currently on empiric Acyclovir/Doxy (was on Rocephin prior, now stopped)
-was on stress dose steroids, now weaned to off
-hallucinations were likely multifactorial due to acute encephalitis, steroids, and a lack of sleep. Appreciated psych, Dx subacute delirium, Seroquel PRN.
Other problems:
Acute non-AG met acidosis, resolved with IVFs with bicarb
Acute anemia on anemia of chronic disease: likely dilutional, trend Hb (stable)
DM2: a1c 6.7%, cont Lantus/premeal Novolog/SSI/accuchecks, diabetes [employer] following
Essential HTN: increase BB, cont Losartan
h/o CVA: cont Plavix/statin
RA: cont prednisone
Hypokalemia, replete
Pt's updated at bedside.
FULL/lovenox
[2025-01-20 09:41] LABS: Magnesium 1.6 mg/dl (1.6-2.3)
--- NOTE | 2025-01-20 10:58 | W.PN.UPDATE ---
Update Note
Progress Note Update
patient seen chart reviewed. discussed with dr prajapati and nursing. at bedside. both patient and feel that her sensorium is starting to clear. he described to me onset of her sx recently with headache vomiting chills and confusion.
currently she is fully oriented. while she was tired she did converse with me entirely appropriately. we talked about her three kids and ten grands. 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
holiday which she hopes to spend at d's home. she did not sleep very well. there is noise in the hallway and people of course coming in and out during the night. added very small amount of trazodone 12.5 mg .she feels melatonin makes her spacey.
second LP done yesterday. results pending. will follow
--- NOTE | 2025-01-20 11:49 | W.PN.ID1 ---
Date of Service
Date of Service: January 20, 2025
Today's Communication
- stop IV acyclovir
- continue doxycycline x 14 day course
- steroids per IM service
Encephalitis is difficult to diagnose and the majority of cases do not have a specific etiology identified. Encouraged by her rapid improvement. I will follow up pending studies; patient is stable for discharge from ID perspective
Assessment / Plan
Encephalopathy/encephalitis, improving
Fever resolved
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
Recent culture negative L shoulder PJI s/p explant 11/27/24 at [facility] placed on Tedizolid, but developed diarrhea and replaced with doxy on 12/24 through 01/06.
- Procalcitonin negative
- Bcx's neg to date
- 01/15 Unsuccessful LP with traumatic tap 1cc fluid: 18WBC, 5291 RBC, 58% lymphocytes, 156 protein, gram stain neg, cx neg to date
- meningitis panel negative
- CRAG, VDRL, WNV IgM, anti-NMDAR antibody pending
- Serum WNV IgM negative; anti-NMDAR antibody serum as well
- ehrlichia, anaplasma, lyme serologies pending
- FTA pending
- MRI brain: limited study but no acute abnormality.
- stop IV acyclovir
- continue doxycycline x 14 day course
- steroids per IM service
Encephalitis is difficult to diagnose and the majority of cases do not have a specific etiology identified. Encouraged by her rapid improvement. I will follow up pending studies; patient is stable for discharge from ID perspective
Chief Complaint
-: Fever and Other (Change in mental status.)
Subjective / Review of Systems
remains afebrile
bp stable to hypertensive
now fully oriented
having appropriate conversations
slept well last night
Vital Signs / Physical Exam
Vital Signs
Vital Signs
Temp Pulse Resp BP Pulse Ox
97.5 F 99 17 171/101 97
01/20/25 07:45 01/20/25 07:45 01/20/25 07:45 01/20/25 07:45 01/20/25 07:45
Physical Exam
Constitutional: No Acute Distress
Cardiovascular: Regular Rate and S1/S2; Negative Murmur or Rub
Pulmonary: Clear and Symmetric; Negative Wheezes or Rales
Gastrointestinal: Soft, Non Tender, Non Distended and Normal Bowel Sounds
Skin: Warm and Dry; Negative Rash or Jaundice
Neurological: Awake, Alert and Oriented
Objective Data
Lab Data
Lab Results
01/20/25 05:53
01/20/25 05:53
PT 13.5 Sec (11.4-14.6) 01/15/25 11:45
INR 1.00 01/15/25 11:45
Estimated Creat Clear 55 ml/min 01/20/25 05:53
Lactic Acid 1.5 mmol/L (0.7-2.0) 01/15/25 00:27
Total Bilirubin 0.5 mg/dl (0.2-1.3) 01/20/25 05:53
AST 20 U/L (14-36) 01/20/25 05:53
ALT 17 U/L (0-35) 01/20/25 05:53
Alkaline Phosphatase 42 U/L (38-126) 01/20/25 05:53
Most recent labs reviewed.
Micro Results:
01/14/25 19:46 Blood Culture - Final
Blood/Venous No Growth - Final Report
01/14/25 17:51 Blood Culture - Final
Blood/Venous No Growth - Final Report
01/19/25 15:30 Meningitis/Encephalitis Panel (PCR) - Final
Csf
01/15/25 15:14 CSF Culture - Preliminary
Csf No Growth After 4 Days
Gram Stain - Final
01/14/25 17:22 Urine Culture - Final
Urine
01/15/25 08:27 Nasal Screen MRSA (PCR) - Final
Nose MRSA not detected - performed by PCR methodology.
01/14/25 17:51 Influenza Types A & B (TERRI) - Final
Nasal Swab Negative for Influenza A & B, NAAT
Negative results must be combined with clinical observations
and patient history.
Nucleic Acid Amplification test (NAAT)performed on the
[employer] platform.
01/16/25 Brain MRI: Exam limited by motion artifact. Within these limitations: No acute intracranial abnormality noted.
Care Review
Plan reviewed with: Physician (Dr Mckay discussed disposition)
[2025-01-20 11:51] LABS: Glucose - Point of Care 152 mg/dl (70-99)
[2025-01-20 12:35] VITALS: BP 157/68; PULSE 102
--- NOTE | 2025-01-20 12:43 | W.DCSUMMARY ---
Addendum entered and electronically signed by Tosha Mckay MD, Resident 01/22/25 11:16:
Patient was discharged today 01/22/2025 after a bed opened up at a SNF at the patient and family accepted. Patient was anticipated to be discharged on 01/20/2025 with an availability at a SNF, but patient and family provide the update that they
prefer other SNF's.
Encephalitis workup updates:
C. neoformans negative. However, the report states that a negative result does not mean the patient does not have this infection.
Lyme IgG and IgM negative
VDRL, WNV IgM, anti-NMDAR antibody pending
Original Note:
Discharge Summary
Discharge Data
Date of Admission: 01/15/25
Date of Discharge: 01/20/25
Total time spent discharging patient (in min): 45
-
Pending Results: Yes
Additional Pending Results:
CSF: VDRL, cryptococcus neoformans antigen, West Nile IgM antibody,
Serology: Pallidum IgG FTA�ABS, a phagocytosis for Lyme IgG and IgM, Lyme screen IgG and IgM
NMDAR
Hospital Course
Discharging Physician : Dr. Jensen and Dr. Mckay
Disposition : SNF
Primary care physician : Niharika Wilson
Principal Discharge diagnosis : Encephalitis
Chronic Discharge diagnosis : Rheumatoid arthritis s/p right shoulder antibiotic spacer, IDDM, HTN, HLD, prior CVA
Hospital Course :
Ms. Eliz Obando is a 74-year-old woman with PMH notable for IDDM, HTN, HLD, rheumatoid arthritis, and prior CVA who presented with confusion and a headache, and was suspected to have encephalitis due to a metabolic or infectious etiology.
Problem #1: Encephalopathy/encephalitis
She met SIRS criteria on admission with fever, tachycardia, and tachypnea. Chest x-ray demonstrated possible pneumonia, but there was more concern for infectious meningoencephalitis due to her presenting with confusion and headache. She was
started on IV doxycycline, ceftriaxone, and acyclovir. Her vitals stabilized, except for persistent sinus tachycardia. ID was consulted and recommended lumbar puncture. IR was consulted and performed lumbar puncture that was unsuccessful,
yielding 1 mL of bloody CSF. CSF analysis suggested traumatic tap and/or viral encephalitis. Repeat lumbar puncture was obtained. Meningitis panel is negative and other CSF and serology studies are pending, which infectious disease will follow-up
on and call the patient about.
She is on prednisone 5 mg p.o. daily outpatient for rheumatoid arthritis. She was started on stress dose steroids of 10 mg dexamethasone every 6 hours and weaned off. Blood cultures were negative.
Her antibiotics were narrowed to doxycycline on discharge for a 14-day course, ending on January 29, 2025.
Hallucinations
She started having visual hallucinations (such as seeing green people, people behind her or in the room) a few days after being admitted. It is thought to be due to dexamethasone and insomnia. Psychiatry was consulted and started Seroquel 25 mg
p.o. daily. As dexamethasone was weaned, she started sleeping more, and show her hallucinations decreased. She started realizing when she is saying things that may not be real. Seroquel was stopped. Her A&O also improved. She would get the year
wrong, but got it right later on admission.
Type II IDDM
She grew hyperglycemic with stress dose dexamethasone. Diabetes management was consulted. Her insulin regimen was increased. Dexamethasone was tapered and weaned off. Metformin was held on admission but resumed after for stable imaging had been
completed resumed. Her blood sugars returned to goal. She was discharged on her home insulin regimen as well as metformin.
Hypokalemia
Patient's potassium was 3.2-3.4 later on in admission, which may be due to dexamethasone's mineralocorticoid effect. She has not been consistently hypokalemic in prior admissions. Potassium was repleted inpatient, and she will instructed to
follow-up with her PCP to see if her potassium remains low and a potassium supplement is needed.
Hypertension
Resumed home losartan 25 mg. Double metoprolol to 25 mg twice daily, due to elevated blood pressures and heart rate (sinus tachycardia).Discussion.
Rheumatoid arthritis with planned right shoulder surgery
Her home prednisone 5 p.o. daily was resumed. Family asked if her left shoulder orthopedic surgery planned for early February should be postponed. Family is instructed to call her surgeon Dr. Jcarlos Campos at [facility] to about this question,
after ID decided that she should complete a doxycycline course on January 29, 2025.
Important imaging findings :
Chest x-ray 01/14/2025
1. Moderate airspace opacity in the posterior basilar left lower lobe. Diagnostic possibilities are (1) left lower lobe pneumonia or (2) scarring and subsegmental atelectasis.
2. Mild cardiomegaly.
3. Mildly decreased lung volumes.
4. Cement spacer in the left proximal humerus.
CT head 01/14/25
1. MODERATE ACUTE LEFT FRONTAL SINUSITIS.
2. No CT evidence for acute intracranial hemorrhage or transcortical infarct.
3. VERY SEVERE BILATERAL HYPEROSTOSIS FRONTALIS INTERNA and ossification in the anterior interhemispheric falx causing mild mass effect on the frontal lobe gyri.
4. Moderate bilateral frontal and parietal lobe volume loss.
CT abdomen pelvis 01/14/2025
1. Mild acute stercoral colitis and fecal impaction in the rectum.
2. Moderate to severe chronic bilateral renal disease.
3. Very severe calcific atherosclerotic plaque in the abdominal aorta, femoral, and visceral arteries.
4. Small hiatal hernia.
5. Mild cardiomegaly.
6. Severe discogenic degenerative disease at L5/S1.
Brain MRI 01/16/2025
FINDINGS:
Evaluation is limited by patient unintentional motion artifact.
Axial FLAIR sequence demonstrates mild hyperintensity within the periventricular and deep subcortical white matter, likely related to chronic small vessel ischemic changes. No suspicious abnormal parenchymal signal intensity is identified.
The ventricles and sulci are normal in size and configuration. There is no mass effect, midline shift, or extra axial collection.
There is no abnormal parenchymal or meningeal enhancement. There is no abnormal signal intensity on diffusion-weighted images.
The vascular structures at the skull base are unremarkable, as far as visualized. The sinuses and mastoids are clear.
IMPRESSION:
Exam limited by motion artifact. Within these limitations:
No acute intracranial abnormality noted.
Procedure findings :
First lumbar puncture 01/15/2025
Successful fluoroscopically guided lumbar puncture as described.
Repeat lumbar pressure 01/19/2025
Technically successful fluoroscopically guided lumbar puncture.
Discharge Plan
-
Patient Disposition: Custodial/SNF
Discharge Diagnosis/Procedures: Encephalopathy/encephalitis
Hallucinations, likely due to insomnia and Decadron
Anemia of chronic disease
Insulin independent diabetes mellitus
Rheumatoid arthritis
History of CVA
Hypertension
Condition: Fair
Diet: Low Cholesterol, Low Sodium and Diabetic, Carb Controlled
Activity: With assistance
Driving Restrictions: No driving
Bathing Restrictions: None
Referrals:
Niharika Wilson NP [Family Provider, Internal Medicine] - in less than 1 week
Referral Note: Hospitalization for encephalitis. Follow-up diabetes management after stress dose steroids
Additional Discharge Medication Instructions: Please finish your 14-day antibiotic course by taking doxycycline 100 mg twice daily for 12 more days, ending on January 29, 2025. For suspected meningitis/encephalitis. The infectious disease doctor
will call you to tell you about the remaining lab results for an infectious workup.
Your metoprolol was doubled to 25 mg twice daily, as your heart rate remained elevated but normal rhythm (sinus tachycardia) during this hospitalization.
Your insulin was increased due to the high dose dexamethasone causing your blood sugar to increase. We are discharging you on your home insulin regimen (as well as metformin). Please follow-up with your primary care provider to monitor your blood
sugars (and see if you need insulin adjustment), as well as for this hospitalization.
Prescriptions:
New
doxycycline hyclate 100 mg Capsule
100 mg PO BID Qty: 24 0RF
Rx Instructions:
Please finish a 14-day course of doxycycline (12 days left), ending on 01/29/2025.
metoprolol succinate 25 mg Tablet Extended Release 24 Hr
25 mg PO BID Qty: 60 0RF
Rx Instructions:
Sustained sinus tachycardia during admission
Continued
prednisone 5 mg Tablet
5 mg PO DAILY
Kineret 100 mg/0.67 mL Syringe
100 mg SC DAILY
insulin aspart U-100 [Novolog FlexPen U-100 Insulin] 100 unit/mL (3 mL) Insulin Pen
2 sliding scale dose SC DIRECTED
vitamin H52-joemv acid 1,000-400 mcg Tablet, Sublingual
1,000 tab SUBLINGUAL DAILY
Azo Cranberry 250 mg Tablet,Chewable
250 mg PO TID
Glucosamine Chondroitin 550-30-1 mg Capsule
See Rx Instructions .ROUTE .COMPLEX
Rx Instructions:
Pt does not know.
atorvastatin 80 mg tablet
40 mg PO QPM
insulin glargine [Lantus Solostar U-100 Insulin] 100 unit/mL (3 mL) insulin pen
18 unit SC DAILY
metoprolol succinate [Toprol XL] 25 mg Tablet Extended Release 24 Hr
12.5 mg PO BID
acetaminophen [Tylenol Extra Strength] 500 mg Tablet
1,000 mg PO Q6HPRN PRN (Reason: mild pain)
escitalopram oxalate 5 mg Tablet
10 mg PO DAILY Qty: 90 0RF
metformin 500 mg Tablet
500 mg PO BID@0800,1700 Qty: 180 0RF
tramadol 50 mg Tablet
50 mg PO Q6HPRN PRN (Reason: severe pain) Qty: 20 0RF
famotidine 40 mg Tablet
40 mg PO DAILY Qty: 90 0RF
clopidogrel 75 mg Tablet
75 mg PO DAILY Qty: 90 0RF
losartan 25 mg Tablet
25 mg PO DAILY Qty: 90 0RF
cholecalciferol (vitamin D3) 25 mcg (1,000 unit) Tablet
25 mcg PO DAILY Qty: 90 0RF
Discharge Date and Time
Print Language: SPANISH
[2025-01-20] MEDS: NOVOLOG FLEXPEN-LOW RESISTANCE 1 UNITS SC (12:52)
[2025-01-20 14:08] VITALS: BP 157/68; PULSE 100; O2SAT 97
[2025-01-20 14:49] VITALS: BP 143/68
[2025-01-20 16:07] VITALS: BMI 33.0
[2025-01-20 17:10] LABS: Glucose - Point of Care 128 mg/dl (70-99)
[2025-01-20] MEDS: LIPITOR 40 MG PO (17:10)
[2025-01-20] MEDS: LOVENOX 40 MG SC (17:10)
--- NOTE | 2025-01-20 17:33 | W.PN.NEURO.1 ---
Today's Communication / Plan
-
The patient has been seen by ID who suggested to repeat the LP. On the repeat LP the meningitis encephalitis panel was negative. The ID also suggested to stop IV acyclovir and to continue with doxycycline x 14 days.
The patient has been seen by psychiatry also.
The MRI of the brain did not show any acute intracranial abnormality.
I had detailed discussion with the patient's and daughter regarding the assessment and the management plan, and they verbalized understanding of our discussion. The patient is much better today as compared to yesterday as per patient's
and daughter.
Follow-up with neurology as an outpatient.
Will sign off please call if you have any question.
Neuro Assessment/Plan
Assessment
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
Differential diagnosis includes meningitis/encephalitis and toxic metabolic encephalopathy. MRI was negative for stroke. Seizure is less likely given no seizure acitvity noted and there has been a significant improvement in mental status.
Plan
EEG is still unlikely to be helpful at this time, as she continues to improve.
Continue clopidogrel
Continue atorvastatin
Goal of normoglycemia
Goal of normotension
Attempt to reduce exposure to sedative agents
Antibiotic coverage as per primary service and infectious disease
Repeat LP today per ID.
DVT prophylaxis.
Subjective/Objective
Subjective Data
Date of Service: January 20, 2025
The is a 74 years old female who presented with an acute change in mental status. Her mental status has improved significantly, however she is still not back to her baseline as per her , but she is better than yesterday as per her .
There is no history to suggest a seizure.
The patient is alert and oriented x3. Her speech is clear.
The patient has been seen by ID who suggested to repeat the LP. On the repeat LP the meningitis encephalitis panel was negative. The ID also suggested to stop IV acyclovir and to continue with doxycycline x 14 days.
The patient has been seen by psychiatry also.
The MRI of the brain did not show any acute intracranial abnormality.
Objective Data
Vital Signs
Temp Pulse Resp BP Pulse Ox
36.6 C 102 18 143/68 97
01/20/25 14:49 01/20/25 14:49 01/20/25 14:49 01/20/25 14:49 01/20/25 14:49
Lab Results
01/20/25 05:53
01/20/25 05:53
PT 13.5 Sec (11.4-14.6) 01/15/25 11:45
INR 1.00 01/15/25 11:45
Sodium 137 mmol/L (135-145) 01/20/25 05:53
Potassium 3.3 mmol/L (3.5-5.1) L 01/20/25 05:53
BUN 32 mg/dl (7-17) H 01/20/25 05:53
Glucose 122 mg/dl (70-99) H 01/20/25 05:53
Calcium 8.4 mg/dl (8.4-10.2) 01/20/25 05:53
Vitamin B12 794 pg/ml (239-931) 01/15/25 08:56
Patient Allergies
cefaclor Allergy (Verified 01/14/25 17:19)
tolerating cefepime 04/14/22
ciprofloxacin Allergy (Verified 01/14/25 17:19)
Rash
clindamycin Allergy (Verified 01/14/25 17:19)
Rash
erythromycin base Allergy (Verified 01/14/25 17:19)
Rash
melatonin Allergy (Verified 01/15/25 17:01)
pt 'spaces out'
Sulfa (Sulfonamide Antibiotics) Allergy (Verified 01/14/25 17:19)
Rash
vancomycin Allergy (Verified 01/14/25 17:19)
Rash
'all antibx except for keflex&PCN' Allergy (Uncoded 01/14/25 17:19)
Unknown
Vital Signs and Labs
-
Vital Signs and Labs:
Vital Signs
Temp Pulse Resp BP Pulse Ox
36.6 C 102 18 143/68 97
01/20/25 14:49 01/20/25 14:49 01/20/25 14:49 01/20/25 14:49 01/20/25 14:49
Lab Results
01/20/25 05:53
01/20/25 05:53
PT 13.5 Sec (11.4-14.6) 01/15/25 11:45
INR 1.00 01/15/25 11:45
Sodium 137 mmol/L (135-145) 01/20/25 05:53
Potassium 3.3 mmol/L (3.5-5.1) L 01/20/25 05:53
BUN 32 mg/dl (7-17) H 01/20/25 05:53
Glucose 122 mg/dl (70-99) H 01/20/25 05:53
Calcium 8.4 mg/dl (8.4-10.2) 01/20/25 05:53
Vitamin B12 794 pg/ml (239-931) 01/15/25 08:56
Medications
-
Active Medications
Generic Name Dose Route Start Last Admin
Trade Name Freq PRN Reason Stop Dose Admin
Acetaminophen 650 mg 01/15/25 06:00
Acetaminophen 325 Mg Tablet PO 02/12/25 05:59
Q4HPRN PRN
mild pain/ELENA/temp>100.5
Albuterol/Ipratropium 3 ml 01/15/25 01:50
Ipratropium 0.5/Albuterol 3 Mg (3 Ml Ampul) INH
R Q4HPRN PRN
sob/wheeze
Protocol
Atorvastatin Calcium 40 mg 01/18/25 18:00 01/20/25 17:10
Atorvastatin (Lipitor) 40 Mg Tablet PO 02/15/25 17:59 40 mg
QPM DEON Administration
Cholecalciferol 25 mcg 01/15/25 08:00 01/20/25 08:24
Cholecalciferol (Vitamin D3) 25 Mcg Tablet (1,000 Units) PO 02/12/25 07:59 25 mcg
DAILY DEON Administration
Clopidogrel Bisulfate 75 mg 01/15/25 08:00 01/20/25 08:24
Clopidogrel 75 Mg Tablet PO 02/12/25 07:59 75 mg
DAILY DEON Administration
Dextrose 12.5 grams 01/17/25 15:00
Dextrose 50% (0.5 Grams/Ml) 50 Ml Syringe IV 02/14/25 14:59
[id number] PRN
hypoglycemia
Protocol
Doxycycline Hyclate 100 mg 01/18/25 20:00 01/20/25 08:25
Doxycycline 100 Mg Capsule PO 100 mg
BID DEON Administration
Enoxaparin Sodium 40 mg 01/15/25 18:00 01/20/25 17:10
Enoxaparin Sodium 40 Mg/0.4 Ml Syringe SC 02/12/25 17:59 40 mg
QPM DEON Administration
Escitalopram Oxalate 10 mg 01/15/25 08:00 01/20/25 08:23
Escitalopram 5 Mg Tablet PO 02/12/25 07:59 10 mg
DAILY DEON Administration
Famotidine 20 mg 01/20/25 08:00 01/20/25 08:24
Famotidine 20 Mg Tablet PO 02/17/25 07:59 20 mg
DAILY DEON Administration
Glucagon 1 mg 01/17/25 15:00
Glucagon 1 Mg Vial IM 02/14/25 14:59
PRN PRN
hypoglycemia
Protocol
Insulin Glargine 20 units/ 0.2 mls @ 0 mls/hr 01/20/25 08:00 01/20/25 08:23
Device SC 02/17/25 07:59 0.2 mls
DAILY EDON Administration
As Directed
Insulin Aspart 0 units 01/17/25 16:30 01/20/25 17:40
Insulin Aspart Low Resistance 300 Units/3 Ml Pen.Injctr SC 02/14/25 16:29 Not Given
AC DEON
Protocol
Insulin Aspart 8 units 01/19/25 16:30 01/20/25 17:28
Insulin Aspart (Novolog) 100 Units/Ml 3 Ml Flexpen SC 02/16/25 16:29 8 units
AC DEON Administration
Losartan Potassium 25 mg 01/18/25 10:25 01/20/25 08:24
Losartan 25 Mg Tablet PO 02/15/25 10:24 25 mg
DAILY DEON Administration
Metformin HCl 500 mg 01/19/25 17:00 01/20/25 17:10
Metformin 500 Mg Regular Release Tablet PO 02/16/25 16:59 500 mg
BID@0800,1700 DEON Administration
Methocarbamol 500 mg 01/15/25 08:00 01/20/25 17:10
Methocarbamol 500 Mg Tablet PO 02/12/25 07:59 500 mg
TID DEON Administration
Methocarbamol 500 mg 01/15/25 01:50
Methocarbamol 500 Mg Tablet PO 02/12/25 01:49
TIDPRN PRN
muscle spasam
Metoprolol Succinate 25 mg 01/20/25 20:00
Metoprolol 25 Mg Extended Release Tablet PO 02/17/25 19:59
BID DEON
Metoprolol Tartrate 5 mg 01/16/25 14:02 01/16/25 21:16
Metoprolol 5 Mg/5 Ml Vial IV 02/13/25 13:59 5 mg
Q6HPRN PRN Administration
HR > 120 sustained
Miconazole Nitrate 0 applic 01/16/25 20:00 01/20/25 08:25
Miconazole Powder Bottle TOPICAL 02/13/25 19:59 1 applic
BID DEON Administration
Morphine Sulfate 1 mg 01/15/25 22:35 01/16/25 20:54
Morphine 2 Mg/Ml Syringe IV 01/29/25 22:34 1 mg
Q4HPRN PRN Administration
severe pain
Pantoprazole Sodium 40 mg 01/19/25 08:00 01/20/25 08:23
Pantoprazole 40 Mg Delayed Release Tablet PO 02/16/25 07:59 40 mg
DAILY DEON Administration
Prednisone 5 mg 01/15/25 08:00 01/20/25 08:23
Prednisone 5 Mg Tablet PO 02/12/25 07:59 5 mg
DAILY DEON Administration
Sodium Chloride 0 flush 01/15/25 04:00 01/16/25 01:28
Sodium Chloride 0.9% (Flush) Syringe IV 02/12/25 03:59 1 flush
PER PROTOCOL DEON Administration
Tramadol HCl 50 mg 01/15/25 01:50
Tramadol Hcl 50 Mg Tablet PO 02/12/25 01:49
Q6HPRN PRN
severe pain
Trazodone HCl 12.5 mg 01/20/25 22:00
Trazodone 50 Mg Tablet PO 02/17/25 21:59
HS DEON
Home Medications
�Medication �Instructions �Recorded
cholecalciferol (vitamin D3) 25 25 mcg PO DAILY #90 tabs 05/15/22
mcg (1,000 unit) tablet
clopidogrel 75 mg tablet 75 mg PO DAILY #90 tabs 05/15/22
escitalopram oxalate 5 mg tablet 10 mg (2 x 5 mg) PO DAILY #90 tabs 05/15/22
famotidine 40 mg tablet 40 mg PO DAILY #90 tabs 05/15/22
losartan 25 mg tablet 25 mg PO DAILY #90 tabs 05/15/22
metformin 500 mg tablet 500 mg PO BID@0800,1700 #180 tabs 05/15/22
tramadol 50 mg tablet 50 mg PO Q6HPRN PRN severe pain 05/15/22
#20 tabs
anakinra 100 mg/0.67 mL 100 mg SC DAILY Autoimmune Disorder 01/14/25
subcutaneous syringe (Kineret)
atorvastatin 80 mg tablet 40 mg PO QPM High Cholesterol 01/14/25
cranberry fruit concentrate 250 mg 250 mg PO TID Supplement 01/14/25
chewable tablet (Azo Cranberry)
glucosamine sulf dipot See Rx Instructions .Route 01/14/25
chlr,msm,chond 550 mg-C 30 mg-heather .COMPLEX Supplement
1 mg capsule (Glucosamine
Chondroitin)
insulin aspart U-100 100 unit/mL 2 sliding scale dose SC 01/14/25
(3 mL) subcutaneous pen (Novolog DIRECTED Diabetes
FlexPen U-100 Insulin aspart)
insulin glargine 100 unit/mL (3 18 unit SC DAILY Diabetes 01/14/25
mL) subcutaneous pen (Lantus
Solostar U-100 Insulin)
prednisone 5 mg tablet 5 mg PO DAILY Anti-Inflammatory 01/14/25
vitamin B12 1,000 mcg-folic acid 1,000 tab sublingual DAILY 01/14/25
400 mcg sublingual tablet Supplement
acetaminophen 500 mg tablet 1,000 mg PO Q6HPRN PRN mild pain 01/15/25
(Tylenol Extra Strength)
metoprolol succinate 25 mg 12.5 mg PO BID Heart 01/15/25
tablet,extended release 24 hr Disease/Condition
(Toprol XL)
doxycycline hyclate 100 mg capsule 100 mg PO BID Infection #24 caps 01/20/25
metoprolol succinate 25 mg 25 mg PO BID Heart 01/20/25
tablet,extended release 24 hr disease/condition #60 tabs
[2025-01-20] MEDS: TOPROL XL 25 MG PO (20:57)
[2025-01-20 22:06] LABS: Glucose - Point of Care 64 mg/dl (70-99)
[2025-01-20 22:36] LABS: Glucose - Point of Care 82 mg/dl (70-99)
[2025-01-20] MEDS: DESYREL 12.5 MG PO (23:09)
[2025-01-21 00:47] LABS: Glucose - Point of Care 75 mg/dl (70-99)
[2025-01-21 05:18] LABS: Hematocrit 29.7 % (37.0-47.0); Hemoglobin 9.1 g/dL (12.0-16.0); Mean Corp Hgb Conc. 30.6 g/dL (33.0-37.0); Mean Corpuscular Volume 99.0 fL (81.0-99.0); Platelet Count 99 10^3/uL (130-400); Red Cell Dist. Width 14.5 % (11.5-14.5)
[2025-01-21 05:32] LABS: ALT (SGPT) 15 U/L (0-35); AST (SGOT) 17 U/L (14-36); Albumin 2.3 g/dl (3.5-5.0); Alkaline Phosphatase 48 U/L (38-126); Blood Urea Nitrogen 30 mg/dl (7-17); Calcium 8.0 mg/dl (8.4-10.2); Carbon Dioxide 31 mmol/L (22-30); Chloride 107 mmol/L (98-107); Estimated Creatinine Clearance 55 ml/min; Glucose 62 mg/dl (70-99); Potassium 3.3 mmol/L (3.5-5.1); Sodium 137 mmol/L (135-145); Total Protein 4.2 g/dl (6.3-8.2); eGFR 59.49
[2025-01-21 07:06] VITALS: BMI 32.0
[2025-01-21 08:26] VITALS: BP 184/86
[2025-01-21 08:33] LABS: Glucose - Point of Care 68 mg/dl (70-99)
[2025-01-21] MEDS: VITAMIN D3 (cholecalciferol) 25 MCG PO (08:51)
[2025-01-21] MEDS: VIBRAMYCIN 100 MG PO ×2 (08:51→21:04)
[2025-01-21] MEDS: COZAAR 25 MG PO (08:51)
[2025-01-21] MEDS: PEPCID 20 MG PO (08:52)
[2025-01-21] MEDS: METHOCARBAMOL 500 MG PO ×3 (08:52→21:14)
[2025-01-21] MEDS: PLAVIX 75 MG PO (08:52)
[2025-01-21] MEDS: PROTONIX 40 MG PO (08:52)
[2025-01-21] MEDS: TOPROL XL 25 MG PO ×2 (08:52→21:05)
[2025-01-21] MEDS: DELTASONE 5 MG PO (08:52)
[2025-01-21] MEDS: NOVOLOG FLEXPEN-LOW RESISTANCE SC ×2 (08:52→17:42)
[2025-01-21] MEDS: LEXAPRO 10 MG PO (08:52)
[2025-01-21] MEDS: KCL 40 MEQ PO (08:54)
[2025-01-21 08:58] LABS: Glucose - Point of Care 101 mg/dl (70-99)
[2025-01-21] MEDS: DESENEX/MITRAZOL/ZEASORB 1 APPLIC TOPICAL ×2 (09:00→21:08)
--- NOTE | 2025-01-21 09:16 | W.PN.HOSP.TC ---
Today's Communication/Plan
-
Continue doxycycline.
Pending SNF availability at a SNF the family is agreeable to.
Assessment / Plan
Assessment / Plan
Impression
Ms. Eliz Obando is a 74-year-old woman with PMH notable for IDDM, HTN, HLD, rheumatoid arthritis, and CVA who presented with confusion and a headache, and suspected to have meningoencephalitis.
First lumbar puncture only obtained 1 mL of bloody CSF. Second lumbar puncture was attempted.
In addition to empiric antibiotics, she was started on dexamethasone 10 mg IV every 6 hours. She developed visual hallucinations, thought to be due to lack of sleep and dexamethasone. Dexamethasone was decreased and psychiatry was consulted.
Plan
Sepsis with encephalopathy secondary to possible viral source:
- Initial px with altered mental status, AOx1 on neuro exam, headache, and fever on presentation
- Investigations: chest xray shows possible pneumonia but then on CT abdomen pelvis shows more atelectasis. procalcitonin is less than 0.05, so less likely. CT head negative.
:: Blood cultures negative
:: West Nile virus IgM antibody negative
First LP only obtained 1 cc bloody CSF
:: CSF analysis: wbc of 18 high, lymphocytes 58%, macrophages 1%, granulocytes 41%, glucose 139, total protein 156, turbid, red, RBC of 5291. Suggests unsuccessful traumatic tap and/or viral cause of encephalitis.
:: CSF culture negative
Repeat LP obtained to 80 cc CSF.
� Meningitis panel negative
� CRAG, VDRL, WNV IgM, anti-NMDAR antibody pending
- S/p stress dose 10 mg dexamethasone every 6 hours. Weaned off
- upgraded to [id number] diet
- PT/OT consulted
Neurology consulted:
� Hold off on EEG. Continue home clopidogrel and atorvastatin. Consider stress dose steroids
:: Brain MRI shows no acute intracranial abnormalities, but limited by motion artifact
Infectious disease consulted
� Continue empiric IV acyclovir and p.o. doxycycline (01/15/2025�). Cefepime discontinued. Ampicillin discontinued. Ceftriaxone discontinued
� Monitor renal function closely while on IV acyclovir
Active hallucinations due to unknown cause:
:: Differential includes steroid induced psychosis, psychosis secondary to viral encephalitis, and an underlying psychiatric disorder or exacerbation of an established psychiatric disorder, due to electrolyte abnormality?
:: Witnessed by infectious disease and physical therapy
- Reduced Decadron dose from 6 mg iv Q6h to 2mg iv Q6h
Psychiatry consulted: Subacute delirium
� Low-dose Seroquel 25 mg p.o. for hallucinations and insomnia
� Pending QTc on EKG (Seroquel, doxycycline, and home Lexapro)
Type 2 diabetes mellitus:
:: A1c 6.7%
:: On 18 units glargine, 2 units AC at home
:: Started stress dose steroids on 01/16. On Dexa 2mg IV Q6 hrs. Glucose range yesterday 254 to 373. Received 18 units lantus in AM with 6 units novolog AC, required 1-4 units of corrective insulin.
Diabetic nurse practitioner consulted
� Increased to a.m. glargine 20 units and AC NovoLog 8 units with low corrective insulin
� Metformin 500 mg p.o. twice daily resumed
� On 1800-calorie pureed diet.
Family reports the DexCom can be 60 points different than fingerstick glucose. Discussed and demonstrated in Ra with family purpose of calibrating sensor with fingerstick glucose. They were unaware of potential to calibrate.
Anemia of chronic disease:
Hemoglobin 8-9, baseline appears to be 11
Upper endoscopy July 2024: Negative for H. pylori, esophagitis, and celiac. Lino gland hyperplasia
Iron studies consistent with anemia of chronic disease in 12/09/2024
- trend H/H q 24 hr
- Started pantoprazole 40 mg p.o. daily
- type and screen and transfuse for hgb < 7
Black tarry stool open/02/02 overnight.
- Heme test stool pending collection
Hypokalemia:
- Repleted as needed
� Start p.o. KCl supplement 20 mill equivalents daily
Magnesium borderline low at 1.6. Repleted
Essential hypertension:
- Home losartan 25 mg p.o. daily resumed
- continue metoprolol tartrate with hold parameters
SBP 171 on 01/2025 while patient was sleeping. Asymptomatic
History of CVA
- Home clopidogrel 75 mg daily and atorvastatin 40 mg every afternoon resumed
Rheumatoid arthritis
- Resumed home prednisone 5 p.o. daily
- Stress-dose steroids with dexamethasone 2 mg q6h IV
� Patient has an orthopedic surgery scheduled in early February for her left shoulder, which may need to be postponed due to suspected meningitis/encephalitis. The surgery is with Dr. Jcarlos Campos at [place]. Family was instructed to call the
orthopedic surgeon to confirm whether the surgery should be postponed.
Suspected TASH
- CPAP 5 cm H2O
DVT PPX - lovenox sq
Code status - Full Code
Anticipated Discharge: Today
Subjective/Interval History
-
Date of Service: January 21, 2025
Medical events overnight. Patient's blood pressure was measured at 180s. Repeat was 160s. Patient was not symptomatic.
Patient's hallucinations have decreased. She was A&O x 4 this morning
Objective Data
-
Labs:
Laboratory Results
01/21/25
04:55
WBC 9.4
Hgb 9.1 L
Hct 29.7 L
Plt Count 99 L D
Sodium 137
Potassium 3.3 L
Chloride 107
Carbon Dioxide 31 H
BUN 30 H
Creatinine 1.0
Glucose 62 L
Calcium 8.0 L
Total Bilirubin 0.4
AST 17
ALT 15
Alkaline Phosphatase 48
Vital Signs:
Vital Signs
Temp Pulse Resp BP Pulse Ox
97.7 F 91 18 184/86 99
01/21/25 08:26 01/21/25 08:26 01/21/25 08:26 01/21/25 08:26 01/21/25 08:26
I&O
01/20/25 01/21/25 01/22/25
06:59 06:59 06:59
Intake Total 600 / 600 1210 / 1210
Output Total 200 / 200
Balance 400 / 400 1210 / 1210
Review of Systems
-
History Source: Patient
All other systems: Reviewed and negative
Physical Exam
-
General: Well Developed, Well Nourished, No Apparent Distress, Comfortable and Conversant
HEENT: Normocephalic, Atraumatic, Anicteric, No Ptosis and Nose Appears Normal; Negative Oxygen
Respiratory: Clear to Auscultation
Cardiac: Regular Rhythm, S1/S2 and Tachycardic
GI: Soft, Nontender, Nondistended, Normal Bowel Sounds and Other (Soiled bed/gown with a bowel movement, nurses cleaning her up)
Musculoskeletal: No Clubbing, No Cyanosis and No Edema
Skin: Warm and Dry
Neuro: Awake and Alert
Psych: Calm
--- NOTE | 2025-01-21 09:22 | W.PN.UPDATE ---
Update Note
Progress Note Update
I saw and evaluated the patient. I reviewed the resident�s note and agree with findings and plan as documented in the resident�s note.
No new complaints.
Gen: NAD, Awake and alert
Eyes: EOMI, PERRLA, no scleral icterus.
Neck: supple.
CV: RRR, +S1/S2, no m/r/g.
Resp: remains CTAB anteriorly, no rales, wheezes, or rhonchi.
Abd: +BS, soft, NT, ND
Skin: No rashes.
Neuro: remains CN 2-12 intact, non-focal.
Psych: Normal mood and affect.
01/15/25 15:14 Csf CSF Culture - Final
No Growth After 5 Days - Final Report
01/15/25 15:14 Csf Gram Stain - Final
01/14/25 19:46 Blood/Venous Blood Culture - Final
No Growth - Final Report
01/14/25 17:51 Blood/Venous Blood Culture - Final
No Growth - Final Report
01/19/25 15:30 Csf Meningitis/Encephalitis Panel (PCR) - Final
01/14/25 17:22 Urine Urine Culture - Final
01/15/25 08:27 Nose Nasal Screen MRSA (PCR) - Final
MRSA not detected - performed by PCR methodology.
01/14/25 17:51 Nasal Swab Influenza Types A & B (TERRI) - Final
Negative for Influenza A & B, NAAT
Negative results must be combined with clinical observations
and patient history.
Nucleic Acid Amplification test (NAAT)performed on the
[employer] platform.
MRI brain: Exam limited by motion artifact. Within these limitations: No acute intracranial abnormality noted.
CT A/P:
1. Mild acute stercoral colitis and fecal impaction in the rectum.
2. Moderate to severe chronic bilateral renal disease.
3. Very severe calcific atherosclerotic plaque in the abdominal aorta, femoral, and visceral arteries.
4. Small hiatal hernia.
5. Mild cardiomegaly.
6. Severe discogenic degenerative disease at L5/S1.
CXR:
1. Moderate airspace opacity in the posterior basilar left lower lobe. Diagnostic possibilities are (1) left lower lobe pneumonia or (2) scarring and subsegmental atelectasis.
2. Mild cardiomegaly.
3. Mildly decreased lung volumes.
4. Cement spacer in the left proximal humerus.
Sepsis and acute metabolic encephalopathy:
-likely due to encephalitis given neuro exam, headache, fever
-s/p LP, only 1cc obtained and RBC 5291 so likely traumatic tap. WBC 18, gluc/prot elevated, CSF Cx NGTD
-s/p 2nd LP on 01/19, meningitis PCR panel NEG, VDRL, cryptococcus, West Nile pending
-currently on Doxy to complete 14 days. Was on Rocephin/Acyclovir prior which were stopped by ID.
-was on stress dose steroids, now weaned to off
-hallucinations were likely multifactorial due to acute encephalitis, steroids, and a lack of sleep. Appreciated psych, Dx subacute delirium, Seroquel PRN.
Other problems:
Acute non-AG met acidosis, resolved with IVFs with bicarb
Acute anemia on anemia of chronic disease: likely dilutional, trend Hb (stable)
DM2: a1c 6.7%, cont Lantus/premeal Novolog/SSI/accuchecks, diabetes [employer] following
Essential HTN: cont BB (increased dose), cont Losartan
h/o CVA: cont Plavix/statin
RA: cont prednisone
Hypokalemia, replete
Thrombocytopenia: Isolated value. Patient denies pain in her lower extremities. Denies shortness of breath. Recheck CBC in 1 week.
FULL/lovenox
Remains medically cleared for d/c since 1112PM. Case management aware.
[2025-01-21 09:32] VITALS: BP 164/82
[2025-01-21] MEDS: NOVOLOG FLEXPEN SC (09:45)
[2025-01-21] MEDS: GLUCOPHAGE PO (09:45)
[2025-01-21] MEDS: MAGNESIUM SULFATE 50 IV (09:46)
[2025-01-21] MEDS: LANTUS 0.18 UNITS SC (09:46)
[2025-01-21] MEDS: LANTUS SC (09:52)
--- NOTE | 2025-01-21 10:39 | CM ---
CM met with Eliz and her daughter to discuss discharge to SNF with hospice. Patient is alert and conversant; Pt's daughter is very emotional today. Support provided.
Daughter had the understanding that there were hospice units; unfortunately inpatient hospice units are not available in this area, and transfer to SNF with hospice care is what is available.
Referral sent to [facility] for hospice; call placed to [facility] and VM left to make them aware of requesting return call to discuss transfer today pending bed availability.
[2025-01-21] MEDS: TYLENOL 650 MG PO (10:53)
--- NOTE | 2025-01-21 11:22 | W.PN.UPDATE ---
Update Note
Progress Note Update
patient seen chart reviewed. at bedside. mrs méndez continues to improve cognitively. she is tired and weak but otherwise feels her mind returning to normal for her. she is hoping for dc to [facility] today or soon after. she is thinking ahead
to the holidays and wanting to get home as soon as possible. no definitive cause has been found for the change in mental status prompting her admit. she did take trazodone 12.5 mg last evening. said she slept okay. if she needs it, it could be
prn at dc. she may not need sleeping aid at home given less noise and commotion. the downside is that trazodone can contribute to dizziness and falls but this is a very low dose. psych will sign off at this point. she appears to be almost back to
baseline and will be dc in the near future.
[2025-01-21 11:49] VITALS: BP 179/74
[2025-01-21 12:24] LABS: Glucose - Point of Care 151 mg/dl (70-99)
[2025-01-21 12:25] LABS: Lyme Antibody Screen, EIA Negative (Negative)
[2025-01-21] MEDS: NOVOLOG FLEXPEN-LOW RESISTANCE 1 UNITS SC (13:08)
[2025-01-21] MEDS: NOVOLOG FLEXPEN 3 UNITS SC ×2 (13:08→17:41)
--- NOTE | 2025-01-21 14:09 | CM ---
Patient is ready for discharge to SNF today. They are no longer interested in [facility]. [facility] has a bed for tomorrow. Daughter also asked for a referral to [facility]; referral sent, however anticipate transfer to [facility].
[2025-01-21 16:27] VITALS: BP 168/70
[2025-01-21 17:24] LABS: Glucose - Point of Care 83 mg/dl (70-99)
[2025-01-21] MEDS: GLUCOPHAGE 500 MG PO (17:42)
[2025-01-21] MEDS: LOVENOX 40 MG SC (17:43)
[2025-01-21] MEDS: LIPITOR 40 MG PO (17:43)
[2025-01-21] MEDS: DESYREL 12.5 MG PO (21:04)
[2025-01-21 21:21] LABS: Glucose - Point of Care 76 mg/dl (70-99)
[2025-01-21 23:12] VITALS: BP 143/63
[2025-01-21 23:41] LABS: C.neoformans Antigen Negative (Negative)
[2025-01-22 03:07] LABS: Glucose - Point of Care 61 mg/dl (70-99)
[2025-01-22 03:31] LABS: Glucose - Point of Care 83 mg/dl (70-99)
[2025-01-22 05:45] LABS: Hematocrit 26.2 % (37.0-47.0); Hemoglobin 8.5 g/dL (12.0-16.0); Mean Corp Hgb Conc. 32.4 g/dL (33.0-37.0); Mean Corpuscular Volume 94.9 fL (81.0-99.0); Platelet Count 100 10^3/uL (130-400); Red Cell Dist. Width 14.5 % (11.5-14.5)
[2025-01-22 06:33] LABS: ALT (SGPT) 12 U/L (0-35); AST (SGOT) 14 U/L (14-36); Albumin 2.0 g/dl (3.5-5.0); Alkaline Phosphatase 41 U/L (38-126); Blood Urea Nitrogen 28 mg/dl (7-17); Calcium 7.5 mg/dl (8.4-10.2); Carbon Dioxide 28 mmol/L (22-30); Chloride 106 mmol/L (98-107); Estimated Creatinine Clearance 55 ml/min; Glucose 78 mg/dl (70-99); Potassium 4.2 mmol/L (3.5-5.1); Sodium 134 mmol/L (135-145); Total Protein 3.8 g/dl (6.3-8.2); eGFR 59.49
--- NOTE | 2025-01-22 07:34 | PN.DE.MGMTRT ---
Insulin Management
- -
01/22/2025: Diabetes Management Follow up
74 year old female who abruptly developed headache, confusion, chills and vomiting yesterday
PMH: RA (on a TNFalphaI anakinra, prednisone 5 mg)
Since arrival here she had fevers to a max of 102.6 rectally, now oral temp in normal range.
Spoke to pt's and daughter- report pt was taking NovoLog 2units AC, Lantus 24 units daily in AM and Metformin 500mg BID.
Pt uses CGM- Dexcom G7 and routinely sees her PCP MARY Kulkarni for diabetes care. A1C 6.9%, Cr 0.7, eGFR >60.
Pt awake, alert, oriented, resting in bed, offers no complaints, able to discuss diabetes care plan. Daughter and at bedside.
Started stress dose steroids on 01/16. Received last dose of Dexa 2mg IV Q6 hrs at 12 noon 01/20, now receiving prednisone 5 mg po daily. Glucose has significantly improved to range of 68 to 150. noted for hypoglycemia overnight.
Will reduce AC NovoLog dose to 2 units and reduce AM Lantus to 15 units, 1st dose tomorrow morning, pt will receive 18 units today.
Cont low corrective insulin with metformin 500 mg BID.
Discussed with Physician Resident and Nurse. Will cont to follow
Family reports the DexCom can be 60 points different than fingerstick glucose. Discussed and demonstrated in Ra with family purpose of calibrating sensor with fingerstick glucose. They were unaware of potential to calibrate.
Diabetes History
- -
Type of Diabetes: 2 requiring insulin
Pre-Admission Diabetes Regimen
01/22/25
05:28
Creatinine 1.0
Lab Results
Hemoglobin A1c 6.7 % (4.0-5.9) H 01/18/25 04:20
Insulin Pump Settings
IP Diabetes Regimen
01/21/25 01/21/25 01/21/25
08:32 08:58 12:22
Glucose
POC Glucose 68 L 101 H 151 H
01/21/25 01/21/25 01/22/25
17:23 21:20 03:05
Glucose
POC Glucose 83 76 61 L
01/22/25 01/22/25
03:30 05:28
Glucose 78
POC Glucose 83
Patient Education
[2025-01-22 07:35] VITALS: BP 142/73
[2025-01-22 07:48] LABS: Glucose - Point of Care 85 mg/dl (70-99)
--- NOTE | 2025-01-22 08:40 | W.PN.HOSP.TC ---
Today's Communication/Plan
-
[facility] has a bed available for the patient today. Patient will be discharged today.
Encephalitis workup updates:
C. neoformans negative. However, the report states that a negative result does not mean the patient does not have this infection.
Lyme IgG and IgM negative
VDRL, WNV IgM, anti-NMDAR antibody pending
Assessment / Plan
Assessment / Plan
Impression
Ms. Eliz Obando is a 74-year-old woman with PMH notable for IDDM, HTN, HLD, rheumatoid arthritis, and CVA who presented with confusion and a headache, and suspected to have meningoencephalitis.
First lumbar puncture only obtained 1 mL of bloody CSF. Second lumbar puncture was attempted.
In addition to empiric antibiotics, she was started on dexamethasone 10 mg IV every 6 hours. She developed visual hallucinations, thought to be due to lack of sleep and dexamethasone. Dexamethasone was weaned and psychiatry was consulted.
Plan
Sepsis with encephalopathy secondary to possible viral source:
- Initial px with altered mental status, AOx1 on neuro exam, headache, and fever on presentation
- Investigations: chest xray shows possible pneumonia but then on CT abdomen pelvis shows more atelectasis. procalcitonin is less than 0.05, so less likely. CT head negative.
:: Blood cultures negative
:: West Nile virus IgM antibody negative
First LP only obtained 1 cc bloody CSF
:: CSF analysis: wbc of 18 high, lymphocytes 58%, macrophages 1%, granulocytes 41%, glucose 139, total protein 156, turbid, red, RBC of 5291. Suggests unsuccessful traumatic tap and/or viral cause of encephalitis.
:: CSF culture negative
Repeat LP obtained to 80 cc CSF.
� Meningitis panel negative
� VDRL, WNV IgM, anti-NMDAR antibody pending
- C. neoformans negative. However, the report states that a negative result does not mean the patient does not have this infection.
- Lyme IgG and IgM negative
- S/p stress dose 10 mg dexamethasone every 6 hours. Weaned off
- upgraded to IDDSI4 diet
- PT/OT consulted
Neurology consulted:
� Hold off on EEG. Continue home clopidogrel and atorvastatin. Consider stress dose steroids
:: Brain MRI shows no acute intracranial abnormalities, but limited by motion artifact
Infectious disease consulted
� Continue empiric IV acyclovir and p.o. doxycycline (01/15/2025�). Cefepime discontinued. Ampicillin discontinued. Ceftriaxone discontinued
� Monitor renal function closely while on IV acyclovir
Active hallucinations due to unknown cause:
:: Differential includes steroid induced psychosis, psychosis secondary to viral encephalitis, and an underlying psychiatric disorder or exacerbation of an established psychiatric disorder, due to electrolyte abnormality?
:: Witnessed by infectious disease and physical therapy
- Reduced Decadron dose from 6 mg iv Q6h to 2mg iv Q6h
Psychiatry consulted: Subacute delirium
� Low-dose Seroquel 25 mg p.o. for hallucinations and insomnia
� Pending QTc on EKG (Seroquel, doxycycline, and home Lexapro)
Type 2 diabetes mellitus:
:: A1c 6.7%
:: On 18 units glargine, 2 units AC at home
:: Started stress dose steroids on 01/16. On Dexa 2mg IV Q6 hrs. Glucose range yesterday 254 to 373. Received 18 units lantus in AM with 6 units novolog AC, required 1-4 units of corrective insulin.
Diabetic nurse practitioner consulted
� Increased to a.m. glargine 20 units and AC NovoLog 8 units with low corrective insulin
� Metformin 500 mg p.o. twice daily resumed
� On 1800-calorie pureed diet.
Family reports the DexCom can be 60 points different than fingerstick glucose. Discussed and demonstrated in [place] with family purpose of calibrating sensor with fingerstick glucose. They were unaware of potential to calibrate.
Anemia of chronic disease:
Hemoglobin 8-9, baseline appears to be 11
Upper endoscopy July 2024: Negative for H. pylori, esophagitis, and celiac. Lino gland hyperplasia
Iron studies consistent with anemia of chronic disease in 12/09/2024
- trend H/H q 24 hr
- Started pantoprazole 40 mg p.o. daily
- type and screen and transfuse for hgb < 7
Black tarry stool overnight.
- Heme test stool pending collection
Hypokalemia:
- Repleted as needed
� Start p.o. KCl supplement 20 mill equivalents daily
Magnesium borderline low at 1.6. Repleted
Essential hypertension:
- Home losartan 25 mg p.o. daily resumed
- continue metoprolol tartrate with hold parameters
SBP 171 on 01/2025 while patient was sleeping. Asymptomatic
History of CVA
- Home clopidogrel 75 mg daily and atorvastatin 40 mg every afternoon resumed
Rheumatoid arthritis
- Resumed home prednisone 5 p.o. daily
- Stress-dose steroids with dexamethasone 2 mg q6h IV
� Patient has an orthopedic surgery scheduled in early February for her left shoulder, which may need to be postponed due to suspected meningitis/encephalitis. The surgery is with Dr. Jcarlos Campos at [place]. Family was instructed to call the
orthopedic surgeon to confirm whether the surgery should be postponed.
Suspected TASH
- CPAP 5 cm H2O
DVT PPX - lovenox sq
Code status - Full Code
Anticipated Discharge: Today
Subjective/Interval History
-
Date of Service: January 22, 2025
No acute events overnight. Patient had no complaints morning, other than mild 4 out of 10 abdominal pain, that the patient thought was mostly due to gas. Patient's and daughter were there. They stated that her hallucinations have resolved
since yesterday. Patient is awake and alert.
Objective Data
-
Labs:
Laboratory Results
01/22/25
05:28
WBC 9.8
Hgb 8.5 L
Hct 26.2 L
Plt Count 100 L
Sodium 134 L
Potassium 4.2 D
Chloride 106
Carbon Dioxide 28
BUN 28 H
Creatinine 1.0
Glucose 78
Calcium 7.5 L
Total Bilirubin 0.4
AST 14
ALT 12
Alkaline Phosphatase 41
Vital Signs:
Vital Signs
Temp Pulse Resp BP Pulse Ox
98.4 F 81 15 142/73 98
01/22/25 07:35 01/22/25 07:35 01/22/25 07:35 01/22/25 07:35 01/22/25 07:35
I&O
01/21/25 01/22/25 01/23/25
06:59 06:59 06:59
Intake Total 1210 / 1210 240 / 240
Balance 1210 / 1210 240 / 240
Review of Systems
-
History Source: Patient and Family
All other systems: Reviewed and negative
Physical Exam
-
General: Well Developed, Well Nourished, No Apparent Distress, Comfortable and Conversant
HEENT: Normocephalic, Atraumatic, Moist Mucous Membranes, Anicteric, No Ptosis, Nose Appears Normal and Ears Appear Normal
Respiratory: Clear to Auscultation
Cardiac: Regular Rhythm and S1/S2
GI: Soft, Nontender, Nondistended and Normal Bowel Sounds
Musculoskeletal: No Clubbing and No Cyanosis
Skin: Warm and Dry
Neuro: Awake and Alert
Psych: Calm
[2025-01-22] MEDS: NOVOLOG FLEXPEN-LOW RESISTANCE SC ×2 (08:47→13:51)
[2025-01-22] MEDS: COZAAR 25 MG PO (08:59)
[2025-01-22] MEDS: VIBRAMYCIN 100 MG PO (08:59)
[2025-01-22] MEDS: LEXAPRO 10 MG PO (08:59)
[2025-01-22] MEDS: PEPCID 20 MG PO (09:00)
[2025-01-22] MEDS: DELTASONE 5 MG PO (09:00)
[2025-01-22] MEDS: METHOCARBAMOL 500 MG PO (09:00)
[2025-01-22] MEDS: TOPROL XL 25 MG PO (09:00)
[2025-01-22] MEDS: KLOR-CON 20 MEQ PO (09:00)
[2025-01-22] MEDS: PROTONIX 40 MG PO (09:00)
[2025-01-22] MEDS: VITAMIN D3 (cholecalciferol) 25 MCG PO (09:00)
[2025-01-22] MEDS: GLUCOPHAGE 500 MG PO (09:00)
--- NOTE | 2025-01-22 09:00 | W.PN.UPDATE ---
Update Note
Progress Note Update
I saw and evaluated the patient. I reviewed the resident�s note and agree with findings and plan as documented in the resident�s note.
No new complaints.
Gen: NAD, Awake and alert
Eyes: EOMI, PERRLA, no scleral icterus.
Neck: supple.
CV: remains RRR, +S1/S2, no m/r/g.
Resp: continues to remain CTAB anteriorly, no rales, wheezes, or rhonchi.
Abd: +BS, soft, NT, ND
Skin: No rashes.
Neuro: continues to remain CN 2-12 intact, non-focal.
Psych: Normal mood and affect.
01/15/25 15:14 Csf CSF Culture - Final
No Growth After 5 Days - Final Report
01/15/25 15:14 Csf Gram Stain - Final
01/14/25 19:46 Blood/Venous Blood Culture - Final
No Growth - Final Report
01/14/25 17:51 Blood/Venous Blood Culture - Final
No Growth - Final Report
01/19/25 15:30 Csf Meningitis/Encephalitis Panel (PCR) - Final
01/14/25 17:22 Urine Urine Culture - Final
01/15/25 08:27 Nose Nasal Screen MRSA (PCR) - Final
MRSA not detected - performed by PCR methodology.
01/14/25 17:51 Nasal Swab Influenza Types A & B (TERRI) - Final
Negative for Influenza A & B, NAAT
Negative results must be combined with clinical observations
and patient history.
Nucleic Acid Amplification test (NAAT)performed on the
[employer] platform.
MRI brain: Exam limited by motion artifact. Within these limitations: No acute intracranial abnormality noted.
CT A/P:
1. Mild acute stercoral colitis and fecal impaction in the rectum.
2. Moderate to severe chronic bilateral renal disease.
3. Very severe calcific atherosclerotic plaque in the abdominal aorta, femoral, and visceral arteries.
4. Small hiatal hernia.
5. Mild cardiomegaly.
6. Severe discogenic degenerative disease at L5/S1.
CXR:
1. Moderate airspace opacity in the posterior basilar left lower lobe. Diagnostic possibilities are (1) left lower lobe pneumonia or (2) scarring and subsegmental atelectasis.
2. Mild cardiomegaly.
3. Mildly decreased lung volumes.
4. Cement spacer in the left proximal humerus.
Sepsis and acute metabolic encephalopathy:
-likely due to encephalitis given neuro exam, headache, fever
-s/p LP, only 1cc obtained and RBC 5291 so likely traumatic tap. WBC 18, gluc/prot elevated, CSF Cx NGTD
-s/p 2nd LP on 01/19, meningitis PCR panel and cryptococcus NEG. VDRL and West Nile pending.
-serum Lyme and west nile NEG
-serum NMDAR IgG NEG
-currently on Doxy to complete 14 days. Was on Rocephin/Acyclovir prior which were stopped by ID.
-was on stress dose steroids, now weaned to off
-hallucinations were likely multifactorial due to acute encephalitis, steroids, and a lack of sleep. Appreciated psych, Dx subacute delirium, Seroquel PRN.
Other problems:
Acute non-AG met acidosis, resolved with IVFs with bicarb
Acute anemia on anemia of chronic disease: likely dilutional, trend Hb (stable)
DM2: a1c 6.7%, cont Lantus/premeal Novolog/SSI/accuchecks, diabetes INFORMATION SERVICES CONSULTANT following
Essential HTN: cont BB (increased dose), cont Losartan
h/o CVA: cont Plavix/statin
RA: cont prednisone
Hypokalemia, replete
Thrombocytopenia: Both doxycycline and acyclovir can cause thrombocytopenia. Recheck CBC a few days after doxycycline has been discontinued.
FULL/lovenox
Remains medically cleared for d/c since 11/12PM. Case management aware.
Total time spent on d/c = 33 min. This included today's physical exam, progress note, review of laboratory and diagnostic data, preparation of discharge documents and prescriptions, and discussions about the pt's hospital course and discharge plan
with the patient and other medical screener involved in the patient's care.
[2025-01-22] MEDS: DESENEX/MITRAZOL/ZEASORB 1 APPLIC TOPICAL (09:01)
[2025-01-22] MEDS: PLAVIX 75 MG PO (09:01)
--- NOTE | 2025-01-22 09:43 | CM ---
[facility] declined admission. Pt's daughter is aware of same and agreeable to transfer to [facility] today.
Ambulance transport requested.
Outline [facility] Report: [phone]
Outline App [facility]
[2025-01-22 09:50] LABS: Ehrlichia chaffeensis IgM Ab < 1:16 (< 1:16)
[2025-01-22 10:43] LABS: Glucose - Point of Care 173 mg/dl (70-99)
[2025-01-22] MEDS: NOVOLOG FLEXPEN SC (10:47)
[2025-01-22] MEDS: LANTUS 0.18 UNITS SC (10:49)
[2025-01-22 14:12] VITALS: BP 138/68
[2025-01-23 20:04] LABS: CSF VDRL (T. pallidum) Non Reactive (Non Reactive)
[2025-01-25 00:57] LABS: West Nile Virus, IgM, CSF 0.00 IV (<=0.89)
[2025-01-25 03:15] LABS: Anaplasma phagocytophilum IgM < 1:16 (< 1:16)
[2025-01-25 03:19] LABS: FTA-ABS/T. pallidum, IgG Serum Non Reactive (Non Reactive)
== END 2025-01-22 14:30 | DRG 871 ==
LOC: 3 WEST ACU 00:38
PROVIDERS: Internal Medicine; Physician Assistant; Radiology Vascular & Interventional Radiology; ADMITTING PHYSICIAN Internal Medicine; ATTENDING PHYSICIAN Internal Medicine; CONSULT PHYSICIAN Psychiatry & Neurology Neurology; CONSULT PHYSICIAN Psychiatry & Neurology Psychiatry; EMERGENCY PHYSICIAN Emergency Medicine; FAMILY PHYSICIAN Internal Medicine; OTHER PHYSICIAN Student in an Organized Health Care Education/Training Program
PROC: B01B1ZZ Fluoroscopy of Spinal Cord using Low Osmolar Contrast (ICD-10-PCS; 2025-01-15)
PROC: 009U3ZX Drainage of Spinal Canal, Percutaneous Approach, Diagnostic (ICD-10-PCS; 2025-01-15)
PROC: 5A09357 Assistance with Respiratory Ventilation, Less than 24 Consecutive Hours, Continuous Positive Airway Pressure (ICD-10-PCS; 2025-01-19)
DX: A41.9 Sepsis, unspecified organism (principal); G93.41 Metabolic encephalopathy; E87.20 Acidosis, unspecified; R65.20 Severe sepsis without septic shock; M06.9 Rheumatoid arthritis, unspecified; E11.65 Type 2 diabetes mellitus with hyperglycemia; I10 Essential (primary) hypertension; Z79.4 Long term (current) use of insulin; Z86.73 Personal history of transient ischemic attack (TIA), and cerebral infarction without residual deficits; E78.00 Pure hypercholesterolemia, unspecified; R44.1 Visual hallucinations; D63.8 Anemia in other chronic diseases classified elsewhere; E87.6 Hypokalemia; Z79.84 Long term (current) use of oral hypoglycemic drugs; Z79.899 Other long term (current) drug therapy; Z79.02 Long term (current) use of antithrombotics/antiplatelets; Z96.612 Presence of left artificial shoulder joint; G47.00 Insomnia, unspecified; J01.10 Acute frontal sinusitis, unspecified; Z11.52 Encounter for screening for COVID-19; K44.9 Diaphragmatic hernia without obstruction or gangrene; K52.89 Other specified noninfective gastroenteritis and colitis; K56.41 Fecal impaction; M81.0 Age-related osteoporosis without current pathological fracture; N28.9 Disorder of kidney and ureter, unspecified; L89.152 Pressure ulcer of sacral region, stage 2
CPT/HCPCS: 51701; 62328; 70450; 70553; 71045; 74176; 80053; 81003; 81015; 82533; 82607; 82728; 82746; 82805; 82945; 82962; 83036; 83540; 83550; 83605; 83735; 84145; 84157; 85025; 85027; 85610; 86592; 86618; 86666; 86780; 86788; 86850; 86900; 86901; 87015; 87040; 87070; 87086; 87205; 87327; 87483; 87502; 87641; 87811; 89051; 92526; 92610; 93005; 96361; 96374; 96375; 97163; 97167; 97530; 97535; 99285; A9575

== ENCOUNTER → 2025-01-25 09:57 | Outpatient (REF) | payer OTHER, MEDICARE, BC, SELFPAY ==
[2025-01-25 10:32] LABS: Hematocrit 30.5 % (37.0-47.0); Hemoglobin 9.2 g/dL (12.0-16.0); Mean Corp Hgb Conc. 30.2 g/dL (33.0-37.0); Mean Corpuscular Volume 100.7 fL (81.0-99.0); Nucleated Red Blood Cells % 0 %; Platelet Count 191 10^3/uL (130-400); Red Cell Dist. Width 14.8 % (11.5-14.5)
[2025-01-25 11:18] LABS: Blood Urea Nitrogen 21 mg/dl (7-17); Calcium 8.0 mg/dl (8.4-10.2); Carbon Dioxide 25 mmol/L (22-30); Chloride 104 mmol/L (98-107); Glucose 196 mg/dl (70-99); Potassium 4.3 mmol/L (3.5-5.1); Sodium 130 mmol/L (135-145); eGFR > 60.00
== END ==
LOC: OLABP 09:57
PROVIDERS: ATTENDING PHYSICIAN Family Medicine
DX: G93.41 Metabolic encephalopathy (principal); A41.9 Sepsis, unspecified organism; E11.9 Type 2 diabetes mellitus without complications; D64.9 Anemia, unspecified; I10 Essential (primary) hypertension; R44.1 Visual hallucinations; M06.9 Rheumatoid arthritis, unspecified; D84.821 Immunodeficiency due to drugs
CPT/HCPCS: 36415; 80048; 85025

== ENCOUNTER → 2025-01-28 11:05 | Outpatient (REF) | payer OTHER, MEDICARE, BC, SELFPAY ==
[2025-01-28 13:57] LABS: Blood Urea Nitrogen 17 mg/dl (7-17); Calcium 7.7 mg/dl (8.4-10.2); Carbon Dioxide 23 mmol/L (22-30); Chloride 107 mmol/L (98-107); Glucose 179 mg/dl (70-99); Potassium 3.5 mmol/L (3.5-5.1); Sodium 134 mmol/L (135-145); eGFR > 60.00
== END ==
LOC: OLABP 11:05
PROVIDERS: ATTENDING PHYSICIAN Family Medicine
DX: I10 Essential (primary) hypertension (principal); G93.41 Metabolic encephalopathy; A41.9 Sepsis, unspecified organism; E11.9 Type 2 diabetes mellitus without complications; D64.9 Anemia, unspecified; R44.1 Visual hallucinations; M06.9 Rheumatoid arthritis, unspecified; D84.821 Immunodeficiency due to drugs
CPT/HCPCS: 36415; 80048

== ENCOUNTER → 2025-02-02 11:56 | Outpatient (REF) | payer OTHER, MEDICARE, BC, SELFPAY ==
[2025-02-02 12:43] LABS: Hematocrit 25.1 % (37.0-47.0); Hemoglobin 8.0 g/dL (12.0-16.0); Mean Corp Hgb Conc. 31.9 g/dL (33.0-37.0); Mean Corpuscular Volume 96.9 fL (81.0-99.0); Platelet Count 181 10^3/uL (130-400); Red Cell Dist. Width 15.5 % (11.5-14.5)
== END ==
LOC: OLABP 11:56
PROVIDERS: ATTENDING PHYSICIAN Family Medicine
DX: G93.41 Metabolic encephalopathy (principal); A41.9 Sepsis, unspecified organism; E11.9 Type 2 diabetes mellitus without complications; D64.9 Anemia, unspecified; I10 Essential (primary) hypertension; R44.1 Visual hallucinations; M06.9 Rheumatoid arthritis, unspecified; D84.821 Immunodeficiency due to drugs
CPT/HCPCS: 36415; 85027

== ENCOUNTER → 2025-02-08 09:53 | Outpatient (REF) | payer OTHER, MEDICARE, BC, SELFPAY ==
[2025-02-08 12:02] LABS: Hematocrit 30.1 % (37.0-47.0); Hemoglobin 8.9 g/dL (12.0-16.0); Mean Corp Hgb Conc. 29.6 g/dL (33.0-37.0); Mean Corpuscular Volume 101.7 fL (81.0-99.0); Nucleated Red Blood Cells % 0 %; Platelet Count 246 10^3/uL (130-400); Red Cell Dist. Width 15.7 % (11.5-14.5)
[2025-02-08 17:35] LABS: Blood Urea Nitrogen 21 mg/dl (7-17); Calcium 8.8 mg/dl (8.4-10.2); Carbon Dioxide 21 mmol/L (22-30); Chloride 104 mmol/L (98-107); Glucose 206 mg/dl (70-99); Potassium 4.9 mmol/L (3.5-5.1); Sodium 137 mmol/L (135-145); eGFR 59.49
[2025-02-08 17:57] LABS: Urine Character Cloudy (Clear)
== END ==
LOC: OLABP 09:53
PROVIDERS: ATTENDING PHYSICIAN Family Medicine
DX: G93.41 Metabolic encephalopathy (principal); A41.9 Sepsis, unspecified organism; E11.9 Type 2 diabetes mellitus without complications; D64.9 Anemia, unspecified; I10 Essential (primary) hypertension; R44.1 Visual hallucinations; M06.9 Rheumatoid arthritis, unspecified; D84.821 Immunodeficiency due to drugs
CPT/HCPCS: 36415; 80048; 81003; 81015; 85025; 87077; 87086

== ENCOUNTER → 2025-02-09 10:27 | Outpatient (REF) | payer OTHER, MEDICARE, BC, SELFPAY ==
[2025-02-09 10:59] LABS: Hematocrit 29.6 % (37.0-47.0); Hemoglobin 8.9 g/dL (12.0-16.0); Mean Corp Hgb Conc. 30.1 g/dL (33.0-37.0); Mean Corpuscular Volume 103.5 fL (81.0-99.0); Nucleated Red Blood Cells % 0 %; Platelet Count 264 10^3/uL (130-400); Red Cell Dist. Width 15.6 % (11.5-14.5)
[2025-02-09 11:10] LABS: Blood Urea Nitrogen 19 mg/dl (7-17); Calcium 8.3 mg/dl (8.4-10.2); Carbon Dioxide 25 mmol/L (22-30); Chloride 106 mmol/L (98-107); Glucose 147 mg/dl (70-99); Potassium 3.8 mmol/L (3.5-5.1); Sodium 136 mmol/L (135-145); eGFR > 60.00
== END ==
LOC: OLABP 10:27
PROVIDERS: ATTENDING PHYSICIAN Family Medicine
DX: G93.41 Metabolic encephalopathy (principal); A41.9 Sepsis, unspecified organism; E11.9 Type 2 diabetes mellitus without complications; D64.9 Anemia, unspecified; I10 Essential (primary) hypertension; R44.1 Visual hallucinations
CPT/HCPCS: 36415; 80048; 85025

== ENCOUNTER → 2025-02-23 10:18 | Outpatient (REF) | payer OTHER, MEDICARE, BC, SELFPAY ==
[2025-02-23 11:18] LABS: Hematocrit 30.6 % (37.0-47.0); Hemoglobin 9.0 g/dL (12.0-16.0); Mean Corp Hgb Conc. 29.4 g/dL (33.0-37.0); Mean Corpuscular Volume 102.7 fL (81.0-99.0); Nucleated Red Blood Cells % 0 %; Platelet Count 202 10^3/uL (130-400); Red Cell Dist. Width 14.6 % (11.5-14.5)
[2025-02-23 11:22] LABS: Blood Urea Nitrogen 19 mg/dl (7-17); Calcium 8.3 mg/dl (8.4-10.2); Carbon Dioxide 23 mmol/L (22-30); Chloride 107 mmol/L (98-107); Glucose 138 mg/dl (70-99); Potassium 4.0 mmol/L (3.5-5.1); Sodium 134 mmol/L (135-145); eGFR > 60.00
[2025-02-23 11:51] LABS: Urine Character Clear (Clear)
[2025-02-23 12:22] LABS: Urine Squamous Cell >30 /LPF (Few); Urine Urothelial Cell >30 /LPF (FEW)
[2025-02-23 12:23] LABS: Urine Red Blood Cell 0-2 /HPF (0-2); Urine White Cell 16-20 /HPF (0-5)
== END ==
LOC: OLABP 10:18
PROVIDERS: ATTENDING PHYSICIAN Family Medicine
DX: G93.41 Metabolic encephalopathy (principal); A41.9 Sepsis, unspecified organism; E11.9 Type 2 diabetes mellitus without complications; D64.9 Anemia, unspecified; I10 Essential (primary) hypertension; R44.1 Visual hallucinations; M06.9 Rheumatoid arthritis, unspecified; D84.821 Immunodeficiency due to drugs
CPT/HCPCS: 36415; 80048; 81003; 81015; 85025; 87086

== ENCOUNTER → 2025-02-25 16:57 | Outpatient (REF) | payer OTHER, MEDICARE, BC, SELFPAY ==
[2025-02-25 18:16] LABS: Urine Character Clear (Clear)
[2025-02-25 18:49] LABS: Urine Squamous Cell >30 /LPF (Few)
[2025-02-25 18:50] LABS: Urine Red Blood Cell 0-2 /HPF (0-2); Urine White Cell 21-25 /HPF (0-5)
== END ==
LOC: OLABP 16:57
PROVIDERS: ATTENDING PHYSICIAN Family Medicine
DX: I10 Essential (primary) hypertension (principal); M06.9 Rheumatoid arthritis, unspecified; D84.821 Immunodeficiency due to drugs; K52.89 Other specified noninfective gastroenteritis and colitis; G93.41 Metabolic encephalopathy; A41.9 Sepsis, unspecified organism; E11.9 Type 2 diabetes mellitus without complications; D64.9 Anemia, unspecified
CPT/HCPCS: 81003; 81015; 87086